=== PATIENT | female | born 1985 | race Caucasian/White ===

== ENCOUNTER 2017-08-24 20:44 | Emergency (ER) | payer MEDICARE, MEDICAID, SELFPAY ==
[2017-08-24 20:52] VITALS: BP 118/65; PULSE 89; RESP 18; TEMP 36.4; O2SAT 95
--- NOTE | 2017-08-24 20:58 | ED.GENADUL ---
Disposition Clinical Impression: Right knee pain, Right leg swelling, History of knee surgery Disposition: HOME Condition: Stable Instructions: Leg Edema (ED), Knee Pain (ED) Additional Instructions: Take the antibiotics until finished. Take Tylenol as needed and directed for pain. Follow-up with orthopedics as recommended for reevaluation. Return immediately to the emergency department any worsening or new concerning symptoms. Prescriptions: Cephalexin [Keflex] 500 mg PO QID 7 Days cap Referrals: Erasmo Joseph MD [ [facility] STAFF PHYSICIAN] - Medical Decision Making - Lab Data Laboratory Tests 08/24/17 08/24/17 08/24/17 21:20 21:30 21:30 WBC 9.43 RBC 3.90 L Hgb 10.9 L Hct 33.3 L MCV 85.4 MCH 27.9 MCHC 32.7 RDW 14.7 H Plt Count 332 MPV 10.5 Immature Gran % 0.1 Neutrophils % 65.6 Lymphocytes % 26.2 Monocytes % 6.9 Eosinophils % 1.0 Basophils % 0.2 Absolute Neutrophils 6.19 Absolute Lymphocytes 2.47 Absolute Monocytes 0.65 Absolute Eosinophils 0.09 Absolute Basophils 0.02 Sodium 140 Potassium 3.9 Chloride 107 Carbon Dioxide 24.5 Anion Gap 8.5 BUN 16 Creatinine 1.07 H Estimated GFR/1.73 m2 58.70 Glucose 92 Calcium 8.1 L C-Reactive Protein 2.40 H Fluid Source Fluid Color Fluid Appearance Fluid WBC Fluid Mononuclear Cell Fl Polymorphonucl Cell Fluid Crystals Fluid Crystal Source 08/24/17 08/24/17 23:15 23:15 WBC RBC Hgb Hct MCV MCH MCHC RDW Plt Count MPV Immature Gran % Neutrophils % Lymphocytes % Monocytes % Eosinophils % Basophils % Absolute Neutrophils Absolute Lymphocytes Absolute Monocytes Absolute Eosinophils Absolute Basophils Sodium Potassium Chloride Carbon Dioxide Anion Gap BUN Creatinine Estimated GFR/1.73 m2 Glucose Calcium C-Reactive Protein Fluid Source R knee Fluid Color Colorless Fluid Appearance Clear Fluid WBC 707 H Fluid Mononuclear Cell 98 H Fl Polymorphonucl Cell 2 H Fluid Crystals See comment Fluid Crystal Source R knee - Radiology Data Radiology results: report reviewed, image reviewed CT Right Lower Extremity without IV contrast: 1. Minimal soft tissue edema in the superficial soft tissues of the anterior leg, otherwise no acute findings. 2. Postsurgical and degenerative changes. 3. Lateral subluxation of the patella - Medical Decision Making 32-year-old female with a history of multiple knee and tibia injuries as a child with a history of right knee and proximal tibia surgery with fixation screws done in November 2016 at [facility] with who presents with right proximal medial tibial tender indurated lump for 6 days and right anterior and posterior knee pain today. Patient was seen here 2 days ago for the same complaint and had a right knee x-ray and right lower externally ultrasound which were negative. Patient was advised to follow-up with orthopedics at that time 2 days ago but has not seen them yet. Patient had labs done at that time which noted an ESR of 71 and a CRP of 3. She is afebrile. No obvious physical exam findings concerning for septic joint. She is neurovascularly intact. The tender induration noted on the proximal medial lower leg appear possibly bony in origin. Will obtain a CT and repeat labs. 2220: CT notes soft tissue edema in the soft tissues and possible lateral subluxation of the patella. Results discussed with Dr. Joseph -notes some loosening around the screws. Main concern would be infection. Recommends to check a CRP to see if it has increased from 2 days ago. Will come down to evaluate patient. 2330: Repeat CRP downtrending but still elevated at 2.4. Discussed with Dr. Joseph and plan will be for outpatient antibiotics and recommends Keflex. Dr. Joseph performed a joint aspiration and sent fluid for analysis. He will call patient to arrange for follow-up for further evaluation and possible bone scan. Patient had requested pain medication stronger than Tylenol. Patient cannot take ibuprofen or aspirin due to anaphylaxis. Will give patient 1 dose of hydrocodone here and 1 tab for home. I discussed with patient that at this point there is no acute indication for narcotics prescription and she can discuss any further need of medication upon follow-up as outpatient. History of Present Illness - General Chief complaint: Orthopedic Stated complaint: CALEX Time Seen by Provider: 08/24/17 20:51 Source: patient Mode of arrival: ambulatory Limitations: no limitations - History of Present Illness Initial comments: Patient is a 32-year-old female with history of multiple injuries to her right knee as a child, with right knee and proximal tibia surgery with fixation screws in November 2016 at [facility] who presents for a tender lump in her right proximal medial tibia for the past 6 days and right knee pain today. Patient was seen here 2 days ago for the same complaint and had negative ultrasound and x-ray and was told to follow-up with orthopedics. Patient states the lump has gotten progressively bigger and now she has developed anterior and posterior right knee pain. Denies any new injury, fever, numbness, or weakness in leg. Patient has not taken any medication for pain. - Related Data BusPIRone [Buspar] 30 mg PO DAILY 08/22/17 DULoxetine [Cymbalta] 60 mg PO BID 08/22/17 Eszopiclone [Lunesta] 5 mg PO HS 08/22/17 Fluticasone Propionate [Flovent 110MCG] 2 puff .ROUTE PRN PRN 08/22/17 Meclizine HCl 12.5 mg PO PRN PRN 08/22/17 Nortriptyline HCl 75 mg PO HS 08/22/17 Prazosin HCl 3 mg PO HS 08/22/17 TraZODone [Desyrel] 400 mg PO HS 08/22/17 Cephalexin [Keflex] 500 mg PO QID 7 Days cap 08/25/17 Allergies Allergy/AdvReac Type Severity Reaction Status Date / Time ibuprofen Allergy Severe Anaphylaxsi Unverified 08/24/17 21:46 s salicylates Allergy Severe Anaphylaxsi Unverified 08/24/17 21:46 s Review of Systems Constitutional: denies: chills, fever Eyes: denies: eye pain ENT: denies: ear pain, dental pain Respiratory: denies: cough, shortness of breath Cardiovascular: denies: chest pain, dyspnea on exertion Gastrointestinal: denies: abdominal pain, nausea, vomiting Genitourinary: denies: urgency, dysuria, frequency Musculoskeletal: other (R leg pain). denies: back pain Skin: denies: rash, lesions Neurological: denies: headache, weakness, numbness Past Medical History - Past Medical History Medical history: arthritis Fibromyalgia Surgical history: cholecystectomy, bilateral tubal ligation, other (Knee and tibial surgery, gastric bypass) Psychiatric history: post traumatic stress - Social History Smoking status: never smoker Alcohol use: none Drug use: none General Exam - General Limitations: no limitations General appearance: alert, in no apparent distress - Eye Eye exam: Present: EOMI - Respiratory Respiratory exam: Present: normal lung sounds bilaterally. Absent: respiratory distress, wheezes, rales, rhonchi, stridor - Cardiovascular Cardiovascular Exam: Present: regular rate, normal rhythm. Absent: bradycardia, tachycardia - GI/Abdominal GI/Abdominal exam: Present: soft, normal bowel sounds. Absent: distended, tenderness, guarding, rebound, rigid - Extremities Exam Extremities exam: Present: other (An approximately 4 x 4 centimeter tender indurated lump noted in right medial proximal leg. There is no surrounding erythema, edema, fluctuance or open wound. Patient has multiple circular erythematous scars that are nonhealing throughout leg which were at sites of previous fixators status post right leg surgery in November 2016 that appears to be healing well and do not appear acutely infectious. There is a well-healed long incision scar on the right lateral anterior knee. Right popliteal pulse intact. Right DP/PT pulse intact. No erythema, edema, ecchymosis to right anterior posterior knee. No pain with valgus or varus stress. Negative anterior and posterior drawer right knee.) - Neurological Exam Neurological exam: Present: alert, oriented X3 - Psychiatric Psychiatric exam: Present: normal affect - Skin Skin exam: Present: warm, dry, intact Course Vital Signs - 24 hr 08/24/17 20:52 Temperature 97.5 F L Pulse 89 Respiratory 18 Rate Blood Pressure 118/65 Pulse Oximetry 95
--- NOTE | 2017-08-24 21:30 | DI.RPTCT_ITS ---
SYMPTOM/DIAGNOSIS: RT KNEE AND RT PROXIMAL TIBIA SWELLING AND PAIN, R/O ACUTE PROCESS CT SCAN RIGHT LOWER EXTREMITY: CT scan of the right lower extremity was performed from the distal metaphysis of the femur to the distal metaphyseal region of the tibia and fibula. Comparison with x-rays from 08/22/2017. There are 3 screws seen in the proximal tibia transfixing a healed proximal tibial fracture. Alignment of the fractures are near anatomic in alignment. Note is made of a healed distal right fibular fracture. No acute fracture or dislocation is identified. There is a moderate size knee joint effusion. The patella appears laterally displaced. There is moderately severe narrowing of the patellofemoral joint and periarticular spurring is seen at this joint space. There is malcom- articular spurring, subchondral cysts and mild sclerosis seen in both medial and lateral patella femoral joints. There is mild subcutaneous edema and soft tissue swelling about the lower leg but no focal fluid collection is seen to suggest an abscess. No osseous destructive changes are seen to suggest osteomyelitis. Calcifications in the soft tissues are suggestive of phleboliths. IMPRESSION: Soft tissue edema seen in the lower leg. This may represent cellulitis. No focal fluid collection is seen to suggest abscess. 2. Post surgical changes in the proximal tibia Degenerative changes seen in the knee. 3. Moderately severe degenerative changes of the patellofemoral joint with lateral subluxation of the patella noted.
[2017-08-24 21:53] LABS: Abs Immature Grans 0.01 k/cumm (0.0-0.09); Absolute Basophil Count 0.02 k/cumm (0.0-0.2); Absolute Eosinophil Count 0.09 k/cumm (0.0-0.7); Absolute Lymphocyte Count 2.47 k/cumm (1.2-3.4); Absolute Monocyte Count 0.65 k/cumm (0.11-0.7); Absolute Neutrophil Count 6.19 k/cumm (1.2-6.7); Basophils % 0.2; HCT 33.3 % (36.0-46.0); HGB 10.9 g/dL (12.0-15.5); Immature Grans % 0.1; Lymphocytes % 26.2; Mean Corp. HGB Concentration 32.7 g/dL (32.0-36.0); Mean Corpuscular Hemoglobin 27.9 pg (27.0-33.0); Mean Corpuscular Volume 85.4 fL (80-95); Mean Platelet Volume 10.5 fL (8.0-11.0); Monocytes % 6.9; Neutrophils % 65.6; Platelet Count 332 x1000/uL (130-400); RBC Distribution Width 14.7 % (11.7-14.6); White Blood Cell Count 9.43 k/cumm (4.4-10.8)
[2017-08-24 21:54] LABS: Anion Gap 8.5 mmol/L (3-11); BUN 16 mg/dL (7-18); CO2 24.5 mmol/L (21.0-32.0); CREATININE 1.07 mg/dL (0.55-1.02); Calcium 8.1 mg/dL (8.5-10.1); Chloride 107 mmol/L (98-107); Glucose 92 mg/dL (70-100); Potassium 3.9 mmol/L (3.5-5.1); Sodium 140 mmol/L (136-145)
--- NOTE | 2017-08-24 22:10 | DI.VRAD_ITS ---
EXAM: CT Right Lower Extremity Without Intravenous Contrast, Tibia and Fibula CLINICAL HISTORY: 32 years old, female; Pain; Knee and lower leg; Right; Prior surgery; Surgery date: 6+ months; Surgery type: Knee and tib/fib surgery in nov 2016. ; Patient HX: Right proximal tibia pain and swelling. ; Additional info: Bb maker placed on area of pain and swelling. TECHNIQUE: Axial computed tomography images of the right tibia and fibula without intravenous contrast. All CT scans at this facility use at least one of these dose optimization techniques: automated exposure control; mA and/or kV adjustment per patient size (includes targeted exams where dose is matched to clinical indication); or iterative reconstruction. Coronal and sagittal reformatted images were created and reviewed. COMPARISON: US - RIGHT EXTREMITY ULTRASOUND 2017-08-22 14:12 FINDINGS: Bones/joints: A knee joint effusion is noted. Fixation screws are seen within the proximal tibia with an old well fused tibia fracture that displays near-anatomic alignment. There are moderate degenerative changes in the knee. A healed distal fibula fracture is also noted. There is lateral subluxation of the patella. Soft tissues: Mild superficial soft tissue swelling is seen in the anterior soft tissues of lower leg, but no organized fluid collections are noted. Small soft tissue calcifications in the soft tissues appear to represent phleboliths. IMPRESSION: 1. Minimal soft tissue edema in the superficial soft tissues of the anterior leg, otherwise no acute findings. 2. Postsurgical and degenerative changes. 3. Lateral subluxation of the patella. Dictated and Authenticated by: Carlton Frias MD. Ordering:DEREK ALCARAZ MD
[2017-08-25] MEDS: Cephalexin 500 MG CAP PO (00:07)
[2017-08-25] MEDS: HYDROcodone 5/Acetaminophen 325 TAB PO ×2 (00:27)
[2017-08-25 00:54] LABS: Clarity CLEAR; Source R KNEE
[2017-08-25 00:57] LABS: Nucleated Cells 707 /MM3 (0-0)
[2017-08-25 00:58] LABS: Mononuclear Cells 98 % (0-0); Polynuclear Cells 2 % (0-0)
--- NOTE | 2017-08-25 10:02 | OCONE_ITS ---
DATE OF CONSULTATION: August 24, 2017 CHIEF COMPLAINT: Right knee swelling and pain. ASSESSMENT/PLAN: Alisia is a 32-year-old who has the acute onset of right knee pain and swelling. There are lucencies seen around the screws and she does have an elevated CRP. My concern is that she has an indolent infection of the proximal tibia. Fortunately there are no signs of bony erosions. She is not septic. Her CRP is actually decreasing. The knee is not infected. Therefore, there is n o emergency here. I do think obtaining a bone scan would be helpful to see if there may be some incr eased uptake in this area suggestive of infection. Since we have obtained some fluid from the knee a nd this appears to be benign, I did trial her on a course of antibiotics to see if this is an indolen t, low-grade infection which may respond to a simple oral course of antibiotics. No matter what, she most likely will need surgical removal of the screws with culture of the bone in these areas and colton ridement of the screw tracks. I discussed this with her. She will start taking the Keflex 500 mg q. i.d. I will schedule her for a bone scan. She may take Tylenol and use ice for pain control. I chema l see her back in the outpatient setting. +++++++++++++++++ HISTORY OF PRESENT ILLNESS: Alisia is a 32-year-old who has had multiple traumas to the right knee a nd leg over the years. Most recently, about ten months ago, she suffered a complex proximal tibia fr acture on the right side. This was fixed at [facility] by Dr. Morrison. He utilized a circular frame, tibi al frame type technique. She was in this for four months from December through March. She had is sues with pin site infections, which she said were treated locally without any further major interven tion. Eventually this healed and she was able to ambulate. She has been doing well until one week a go when she started developing some swelling of the proximal, medial tibia. She also noted some pain . The pain was worse with weightbearing. She has been able to move the knee. She denies any fevers or chills. She denies any recent trauma. No other systemic infections recently. She is not immuno compromised. She now lives locally and does not want to follow-up in [place]. PAST MEDICAL HISTORY: 1. Osteoarthritis of the right knee. 2. Fibromyalgia. 3. Bipolar disorder. 4. Depression. 5. Insomnia. PAST SURGICAL HISTORY: 1. Multiple procedures to the right knee. 2. Gastric bypass surgery. 3. Cholecystectomy. 4. Bilateral tubal ligation. ALLERGIES: Ibuprofen and salicylates cause anaphylaxis per patient report. HOME MEDICATIONS: 1. Buspirone. 2. Duloxetine. 3. Lunesta. 4. Fluticasone. 5. Meclizine. 6. Nortriptyline. 7. Prazosin. 8. Trazodone. SOCIAL HISTORY: She doesn't smoke, use alcohol or any other illicit substances. EXAM: No acute distress. Alert and oriented x3. She is resting comfortably on the stretcher when I evalua te her. Evaluation of the RIGHT LOWER EXTREMITY shows multiple incision sites throughout the knee with a larg e lateral-based incision and multiple smaller incisions throughout. The previous pin sites from the external fixator are seen. All of these appear to be well-healed without obvious signs of infection. There is an area of induration over the proximal, medial tibia. This is quite solid and dense and seems to be deep to the subcutaneous layer of the skin. There is some pain to palpation. There is s ome mild warmth and maybe some local swelling around this area. This area of induration measures abo ut 4 to 5 cm in diameter. There is no gross fluctuance with it and in fact there seems to be a loose fluid collection. She globally has discomfort with palpation throughout the knee and the leg. Loaiza debbi, she doesn't have any significant pain to palpation over the medial lateral joint lines. There i s no large effusion palpated, but there may be a mild effusion. There is no ballottement of the redd lla. She tolerates passive range of motion from 5 to 80 degrees without any discomfort. She does ojeda ve some pain posteriorly when she goes into full extension or tries to flex past the 80 degree ange. Around the knee itself there is no erythema, no warmth. Hip range of motion is non-irritable. Sens ation intact to light touch over the deep and superficial peroneal nerve and tibial nerve. There is crepitus with range of motion at the level of the patella and apprehension with patella mobilization. IMAGING: CT scan of the right lower extremity shows three screws transfixed to the proximal tibia. There is d efinitely lucency seen around the screws. However, I do not see any fluid collection. I see no bony erosion. There are arthritic changes of the knee with some focal subchondral bone loss and periarti cular osteophytes. LABORATORY: CRP today is 2.4, which is down from 3.2 two days prior. Her white blood cell count is normal. PROCEDURE: The right knee was identified as the correct site. The superolateral border of the knee was prepped with ChloraPrep. Using a superolateral approach the knee was aspirated of about 15 cc's of clear syn ovial fluid. There was no suspicion at all with this fluid as being infectious. It was sent to the lab for definitive measurements of cell count, crystals, and culture. I also prepped the area of flu ctuance over the anteromedial tibia. I entered this area as well, all the way down to bone and then withdrew the needle while applying some suction and was unable to obtain any fluid at all. This was then aborted quickly and a Band-Aid was placed on both sites. She tolerated the aspirations well. Body fluid laboratory: white blood cell count equals 707, mononuclears 98%, PMSs equal 2%. No cryst als. Few white blood cells and no bacteria on the gram stain.
== END 2017-08-25 00:37 | disposition home or self-care (01) ==
PROVIDERS: Student in an Organized Health Care Education/Training Program; Emergency Provider Physician Assistant; PCP General Practice
DX: M25.561 Pain in right knee (principal); R60.0 Localized edema; Y83.8 Other surgical procedures as the cause of abnormal reaction of the patient, or of later complication, without mention of misadventure at the time of the procedure; M25.461 Effusion, right knee
CPT/HCPCS: 20610; 36415; 80048; 99283; 99284; 73700; 85025; 86140; 87070; 87075; 87205; 89051; 89060

== ENCOUNTER → 2017-09-13 00:18 | Outpatient (CLI) | payer MEDICARE, MEDICAID, SELFPAY ==
[2017-09-13] MEDS: Gadoterate meglumine 20 ML VIAL 19 ML IVP (11:34)
--- NOTE | 2017-09-13 12:00 | DI.REPORT_ITS ---
SYMPTOMS/DIAGNOSIS: SWELLING OF RIGHT PROXIMAL MEDIAL TIBIA, M79.89, WITH PREVIOUS SURGERY INFECTED HARDWARE IN RIGHT LOWER EXTREMITY, T84.7XXA MRI OF THE RIGHT LOWER EXTREMITY: Pre and post contrast MRI of the right lower extremity was performed. Portions of the distal femur and proximal tibia were evaluated on this MRI examination. Comparison CT and nuclear medicine examinations are from 08/24/17 and 08/28/17, respectively. The study is limited due to significant artifact from the patient 's orthopedic hardware. The T2 weighted images do show areas of hyperintensity within the proximal diaphysis and metaphysis of the right tibia. These areas show decreased attenuation on the T1 weighted images. Following contrast administration, no definite enhancement is seen. There is edema seen in the soft tissues. No focal fluid collection is seen to suggest abscess; however, a significant amount of the metaphyseal region is obscured due to metallic artifact. There is some enhancement seen in the soft tissues and cellulitis cannot be excluded. The visualized muscles show normal signal. There is an effusion seen within the knee joint. IMPRESSION: 1. Limited examination due to artifact from the patient's orthopedic hardware. 2. Edema seen in the soft tissues around the proximal tibia. This may represent a cellulitis but no focal fluid collection is seen to suggest abscess. 3. Marrow edema seen in the proximal tibia without findings of significant enhancement. This may be postsurgical in nature. No definite evidence to suggest osteomyelitis is present.
== END ==
PROVIDERS: PCP General Practice; Visit Provider Student in an Organized Health Care Education/Training Program
DX: R22.41 Localized swelling, mass and lump, right lower limb (principal); R60.0 Localized edema; M79.89 Other specified soft tissue disorders; T84.7XXD Infection and inflammatory reaction due to other internal orthopedic prosthetic devices, implants and grafts, subsequent encounter; Z47.89 Encounter for other orthopedic aftercare
CPT/HCPCS: 73720

== ENCOUNTER → 2017-09-21 16:27 | Outpatient (CLI) | payer MEDICARE, MEDICAID, SELFPAY ==
[2017-09-21 19:17] LABS: HCG Quant, Pregnancy 2 mIU/mL (1-3)
== END ==
PROVIDERS: PCP General Practice; Visit Provider General Practice
DX: R11.0 Nausea (principal)
CPT/HCPCS: 36415; 84702

== ENCOUNTER 2017-09-23 19:35 | Emergency (ER) | payer MEDICARE, MEDICAID, SELFPAY ==
[2017-09-23 20:16] VITALS: BP 94/61; PULSE 76; RESP 16; TEMP 36.8; O2SAT 99
--- NOTE | 2017-09-23 21:35 | ED.GENADUL_ITS ---
Disposition Clinical Impression: Abdominal pain, Nausea Disposition: HOME Condition: Good Instructions: Abdominal Pain (ED) Additional Instructions: Laboratory studies and urinalysis are unremarkable tonight. You should follow- up with primary care next week. You should also consider contacting your bariatric surgical team in [place]. Return to the emergency department for worsening/persistent pain, vomiting, fever. Referrals: Madhu Lyle MD [Primary Care Provider] - Medical Decision Making - Medical Decision Making Patient is a 32-year-old female presents today with chief complaint of abdominal pain. Reports the pain has been present for the past 2 weeks. Primarily postprandially. She is endorsing nausea. No vomiting. No change in bowel habits. On exam, no peritoneal findings. Patient is status post cholecystectomy. Pain is in the right mid and upper abdomen. Reports that she has had diminished p.o. intake. Reports that she has lost approximately 6 pounds over the past 2 weeks. She reports that she has irregular bowel habits and this is unchanged since the onset of symptoms. Patient was seen by her primary care for this earlier this week. No definitive diagnosis made. Patient was concerned for appendicitis. However, she is not having pain over McBurney's point. Postprandial pain is also inconsistent with appendicitis. Patient appears calm. She is interacting with her significant other. They are listening to music. We will obtain laboratory evaluation. At this point, I do not believe imaging is warranted. Patient has had multiple CT scans historically. Discussed this with the patient who is in agreement. When nursing staff went to reevaluate the patient, after blood being drawn, began endorsing nausea and requesting pain medication. Patient was given oral Tylenol and ODT Zofran. Patient reports that this is symptomatic management. Laboratory evaluation without significant abnormality. No leukocytosis. Patient is noted to be slightly anemic but this is typical. Creatinine is 1.05 which is also typical for the patient. Lipase is normal at 181. At the end of my shift, urinalysis is still pending. Care was transitioned to Dr. Brito. History of Present Illness - General Chief complaint: Abd Prob Stated complaint: NAUSEA, ABD PAIN, FEVER Time Seen by Provider: 09/23/17 21:32 Source: patient, family, RN notes reviewed Mode of arrival: ambulatory Limitations: no limitations - History of Present Illness Initial comments: Patient is a 32-year-old female presenting today with chief complaint of right- sided belly pain. She is coming by significant other. Patient is a status post gastric sleeve, cholecystectomy. Patient reports that the pain has been waxing and waning for the past 2 weeks. Reports that it is worse postprandial. What the patient has to eat does not change the severity of discomfort. She states that she has been nauseated after eating. No vomiting. States that she has irregular bowel habits at baseline and that this remains unchanged. Last bowel movement was yesterday. LMP 1 month ago. Denies any vaginal discharge. Reports that she has increased urinary frequency. Denies any dysuria, hematuria. No shortness of breath. Patient has history of polycystic ovarian syndrome, fibromyalgia, asthma, seizure disorder, GERD. - Related Data BusPIRone [Buspar] 30 mg PO DAILY 08/22/17 DULoxetine [Cymbalta] 60 mg PO BID 08/22/17 Eszopiclone [Lunesta] 5 mg PO HS 08/22/17 Prazosin HCl 4 mg PO HS 08/22/17 TraZODone [Desyrel] 400 mg PO HS 08/22/17 Albuterol Sulfate [Proair Hfa] 2 puff IH Q4H PRN inhaler 09/25/17 Ferrous Sulfate 324 mg PO DAILY #30 tab 09/25/17 Folic Acid 4 mg PO DAILY #30 tab 09/25/17 Omeprazole 20 mg PO DAILY tab-cap 09/25/17 Topiramate [Topamax] 50 mg PO BID tab-cap 09/25/17 Allergies Allergy/AdvReac Type Severity Reaction Status Date / Time ibuprofen Allergy Severe Anaphylaxsi Unverified 09/23/17 20:32 s salicylates Allergy Severe Anaphylaxsi Unverified 09/23/17 20:32 s Review of Systems Constitutional: no symptoms reported Respiratory: no symptoms reported Cardiovascular: as per HPI. denies: palpitations, dyspnea on exertion Gastrointestinal: as per HPI, abdominal pain, nausea. denies: vomiting, melena Genitourinary: as per HPI, frequency. denies: urgency, dysuria, hematuria, discharge, abnormal menses Musculoskeletal: back pain (endorses bilateral flank pain) Skin: denies: rash, lesions Neurological: denies: headache Past Medical History - Past Medical History Medical history: asthma, fibromyalgia, GERD, seizures Fibromyalgia, polycystic ovarian syndrome Surgical history: cholecystectomy, bilateral tubal ligation, other (Knee and tibial surgery, gastric bypass) Psychiatric history: depression, post traumatic stress - Social History Alcohol use: none Drug use: none General Exam - General Limitations: no limitations General appearance: alert, in no apparent distress - Eye Eye exam: Present: normal apperance - ENT ENT exam: Present: mucous membranes dry - Respiratory Respiratory exam: Present: normal lung sounds bilaterally. Absent: respiratory distress - Cardiovascular Cardiovascular Exam: Present: regular rate, normal rhythm, normal heart sounds - GI/Abdominal GI/Abdominal exam: Present: soft, tenderness (Patient reports that she is having some discomfort with palpation in the right mid and upper quadrants. However, she does not appear uncomfortable. No guarding. No peritoneal findings.), normal bowel sounds. Absent: distended, guarding, rebound, rigid, organomegaly, mass, pulsatile mass, hernia - Rectal Rectal exam: Present: deferred - Back Exam Back exam: Present: CVA tenderness (R), CVA tenderness (L) - Neurological Exam Neurological exam: Present: alert, normal gait - Psychiatric Psychiatric exam: Present: normal affect, normal mood - Skin Skin exam: Present: warm, dry, intact, normal color Course Vital Signs - 24 hr 09/23/17 20:16 Temperature 36.8 C Pulse 76 Respiratory 16 Rate Blood Pressure 94/61 Pulse Oximetry 99
[2017-09-23 22:04] LABS: Abs Immature Grans 0.02 k/cumm (0.0-0.09); Absolute Basophil Count 0.03 k/cumm (0.0-0.2); Absolute Eosinophil Count 0.09 k/cumm (0.0-0.7); Absolute Lymphocyte Count 2.98 k/cumm (1.2-3.4); Absolute Monocyte Count 0.93 k/cumm (0.11-0.7); Absolute Neutrophil Count 6.25 k/cumm (1.2-6.7); Basophils % 0.3; Eosinophils % 0.9; HCT 32.4 % (36.0-46.0); HGB 10.6 g/dL (12.0-15.5); Immature Grans % 0.2; Lymphocytes % 28.9; Mean Corp. HGB Concentration 32.7 g/dL (32.0-36.0); Mean Corpuscular Hemoglobin 27.9 pg (27.0-33.0); Mean Corpuscular Volume 85.3 fL (80-95); Mean Platelet Volume 10.6 fL (8.0-11.0); Neutrophils % 60.7; Platelet Count 280 x1000/uL (130-400); RBC Distribution Width 14.6 % (11.7-14.6)
[2017-09-23] MEDS: Ondansetron O.D.T. 4 MG TABEF PO (22:16)
[2017-09-23] MEDS: Acetaminophen 500 MG TAB 1000 MG PO (22:18)
[2017-09-23 22:26] LABS: ALT 14 U/L (12-78); AST 8 U/L (15-37); Albumin 2.9 g/dL (3.4-5.0); Alkaline Phosphatase 107 U/L (46-116); Anion Gap 6.9 mmol/L (3-11); BUN 15 mg/dL (7-18); Bilirubin, Total 0.2 mg/dL (0.2-1.0); CO2 27.1 mmol/L (21.0-32.0); CREATININE 1.05 mg/dL (0.55-1.02); Chloride 107 mmol/L (98-107); Estimated GFR 59.99 (mL/min/1.73m2); Glucose 73 mg/dL (70-100); Lipase 181 U/L (73-393); Magnesium 2.1 mg/dL (1.8-2.4); Potassium 3.7 mmol/L (3.5-5.1); Sodium 141 mmol/L (136-145)
[2017-09-23 22:38] LABS: Troponin I < 0.02 ng/mL (0.00-0.06)
[2017-09-23 22:40] LABS: Bilirubin Negative (Negative); Blood Negative (Negative); Clarity Clear; Glucose Negative (Negative); Ketones Trace mg/dL (Negative); Leukocyte Esterase Negative (Negative); Nitrite Negative (Negative)
--- NOTE | 2017-09-23 23:23 | ED.FU ---
Disposition Clinical Impression: Abdominal pain, Nausea Disposition: HOME Condition: Good Instructions: Abdominal Pain (ED) Additional Instructions: Laboratory studies and urinalysis are unremarkable tonight. You should follow-up with primary care next week. You should also consider contacting your bariatric surgical team in [place]. Return to the emergency department for worsening/persistent pain, vomiting, fever. Referrals: Madhu Lyle MD [Primary Care Provider] - Medical Decision Making - Lab Data Laboratory Tests 09/23/17 09/23/17 09/23/17 22:00 22:02 22:02 WBC 10.30 RBC 3.80 L Hgb 10.6 L Hct 32.4 L MCV 85.3 MCH 27.9 MCHC 32.7 RDW 14.6 Plt Count 280 MPV 10.6 Immature Gran % 0.2 Neutrophils % 60.7 Lymphocytes % 28.9 Monocytes % 9.0 Eosinophils % 0.9 Basophils % 0.3 Absolute Neutrophils 6.25 Absolute Lymphocytes 2.98 Absolute Monocytes 0.93 H Absolute Eosinophils 0.09 Absolute Basophils 0.03 Sodium 141 Potassium 3.7 Chloride 107 Carbon Dioxide 27.1 Anion Gap 6.9 BUN 15 Creatinine 1.05 H Estimated GFR/1.73 m2 59.99 Glucose 73 Calcium 8.0 L Magnesium 2.1 Total Bilirubin 0.2 AST 8 L ALT 14 Alkaline Phosphatase 107 Troponin I < 0.02 Total Protein 7.0 Albumin 2.9 L Lipase 181 Urine Color Yellow Urine Clarity Clear Urine pH 6.0 Ur Specific [place] 1.020 Urine Protein Negative Urine Ketones Trace H Urine Blood Negative Urine Nitrite Negative Urine Bilirubin Negative Urine Urobilinogen 1.0 H Ur Leukocyte Esterase Negative Urine Glucose Negative Results reviewed for labs ordered during visit: Yes - Medical Decision Making Patient urinalysis negative for infection. Labs unremarkable. She had received Tylenol and Zofran here as well as fluids pending return of laboratory studies. Patient will be referred back to primary care for follow-up. Also suggested she contact her bariatric surgeons in [place] in case this is possibly related to her previous gastric sleeve. Return to ED for worsening/persistent abdominal pain, vomiting, fever. Care Signed Out By:: DEBBIE Rushing - Vital Signs Recent Vitals - 8H: Vital Signs - 8 hr 09/23/17 20:16 Temperature 98.2 F Pulse 76 Respiratory 16 Rate Blood Pressure 94/61 Pulse Oximetry 99 - Continuation of Care Continuation of Care Plan: Patient signed over to me pending results of urinalysis. Patient originally seen by physician commercial loan assistant Shanthi for intermittent right-sided abdominal pain for the last few weeks. This is associated with nausea. Symptoms worse after eating. She is already status post cholecystectomy. She also has history of gastric sleeve. She had seen primary care previously for same.
[2017-09-23 23:52] VITALS: BP 110/70; PULSE 75; RESP 16; O2SAT 96
== END 2017-09-23 23:52 | disposition home or self-care (01) ==
PROVIDERS: Physician Assistant; Emergency Provider Emergency Medicine; PCP General Practice
DX: R10.11 Right upper quadrant pain (principal); R11.0 Nausea; Z98.84 Bariatric surgery status; Z90.49 Acquired absence of other specified parts of digestive tract
CPT/HCPCS: 99283 ×2; 80053; 83690; 81003; 83735; 84484; 85025

== ENCOUNTER → 2017-09-25 09:10 | Outpatient (CLI) | payer MEDICARE, MEDICAID, SELFPAY ==
[2017-09-25 10:04] LABS: Hemoglobin A1C 5.3 % (4.5-6.2)
[2017-09-25 10:39] LABS: Iron 53 ug/dL (50-175); Total Iron Binding Capacity 354 ug/dL (250-450); Transferrin Sat 15 % (15-50)
[2017-09-27 09:41] LABS: DHEA Sulfate 98 ug/dl (96-512)
[2017-09-27 16:39] LABS: Testosterone, Free 0.42 ng/dL (0.06-1.03); Testosterone, Total 30 ng/dL (8-60)
[2017-09-27 18:11] LABS: 17-Hydroxyprogesterone 253 ng/dL
[2017-09-28 09:20] LABS: Hemoglobinopathy Interpretat Interpretation:
== END ==
PROVIDERS: PCP General Practice; Visit Provider Obstetrics & Gynecology
DX: E34.9 Endocrine disorder, unspecified (principal); E28.2 Polycystic ovarian syndrome; D50.8 Other iron deficiency anemias
CPT/HCPCS: 36415; 82627; 84402; 84403; 83020; 83036; 83498; 83540; 83550

== ENCOUNTER → 2017-09-25 10:23 | Outpatient (REF) | payer MEDICARE, MEDICAID, SELFPAY ==
--- NOTE | 2017-09-25 09:00 | PAPFT_PTH ---
PATIENT: Alisia Hein LOC: [facility] U#:[id number] AGE/SX: 39/F ROOM: RE09/25/[address]: Tracy Pena MD : 1985 BED: DIS: SPEC #: [id number] RECD: 09/25/17 13:04 STATUS: LEIA CORTEZ #: [id number] JOSE: 09/25/17 09:[address]: Tracy Pena DEPT: [facility] Cytology RECD BY: Shanel Rodriguez ENTERED: 09/25/17 13:04 SP TYPE: PAPFT OTHR DR: Madhu Lyle Tissues: 1 - CX/ENDOCX FOR PAP SMEARS Procedures: PAP THIN PREP/UVM Screening HPV DNA PROBE Comments: [id number]
== END ==
LOC: LBN 10:23
PROVIDERS: PCP General Practice; Visit Provider Obstetrics & Gynecology
DX: Z12.4 Encounter for screening for malignant neoplasm of cervix (principal); Z11.51 Encounter for screening for human papillomavirus (HPV)
CPT/HCPCS: 88142; 87624

== ENCOUNTER 2017-09-27 02:03 | Emergency (ER) | payer MEDICARE, MEDICAID, SELFPAY ==
[2017-09-27 02:09] VITALS: BP 113/67; PULSE 76; RESP 18; TEMP 36.7; O2SAT 98
[2017-09-27] MEDS: Omnipaque 350 MG/ML 50 ML BTL PO (02:46)
[2017-09-27] MEDS: Breeza Beverage 473 ML BTL PO (02:47)
--- NOTE | 2017-09-27 02:51 | ED.GENADUL ---
Disposition Clinical Impression: Vomiting, Abdominal pain Disposition: HOME Condition: Good Instructions: Abdominal Pain (ED), Acute Nausea and Vomiting (ED) Additional Instructions: We will set up an appointment with a surgeon for colonoscopy. Please drink 8-10 cups of water per day. If you notice any worsening of your symptoms, or any new symptoms such as vomiting, diarrhea, fever, chills, shortness of breath, chest pain, numbness, weakness, or fainting , please return immediately to the emergency department for reevaluation. Please follow up with your primary care provider as soon as possible for reassessment and reevaluation. As always, it was a pleasure participating in your medical care today. Prescriptions: Ondansetron [Zofran Odt] 4 mg PO Q8H #12 tab.rapdis Referrals: Madhu Lyle MD [Primary Care Provider] - Medical Decision Making - Medical Decision Making This is a 32-year-old female with a history of a gastric sleeve, and cholecystectomy who presents for nausea, abdominal pain, occasional vomiting, and some loose stool over the last 3 weeks. Physical exam demonstrates mildly tender but otherwise relatively benign abdomen on exam. She has been able to tolerate liquids, but no significant solids recently. Her symptoms have been present for the last 3 weeks however she has been unable to follow-up with her PCP or gastric bypass surgeon. We will get a CT scan to evaluate for any acute process, ileus, fistula. 5 AM Patient's laboratory workup has returned relatively benign. No significant leukocytosis. No severe electrolyte abnormality. Creatinine is slightly elevated however compared to her normal baseline this appears to be within normal limits on review of prior labs. We are pending CT images results at this time. Patient has had no additional episodes of diarrhea, or vomiting. She has been rehydrated. Feels a CT imaging is negative she can be discharged home with close follow-up. 5: [address] scan of the abdomen and pelvis shows no acute findings that are detected. However there is an intraluminal filling defect noted in the inferior cecum which may be secondary to fecal material, polyp or neoplasm per virtual radiology. Recommended endoscopic evaluation. We will set the patient up with surgical follow-up for colonoscopy. The patient has been able to tolerate p.o. here, and has had no vomiting. After being rehydrated I feel she can be safely discharged home with close follow-up. We will give Zofran for home use. Discussed the importance of close follow-up, and we also discussed red flags which returned the patient understands. I have extensively reviewed the treatment plan and discharge instructions with the patient. I have addressed all patient concerns at this time. The patient was made aware of what symptoms to monitor for that would warrant a return to the emergency department. Discussed the plan with the patient, they demonstrate verbal understanding and agreement with our assessment and plan at this time. History of Present Illness - General Chief complaint: Nausea/Vomit/Diar Stated complaint: UNKNOWN Time Seen by Provider: 09/27/17 02:28 - History of Present Illness Initial comments: This is a 32-year-old female with a past medical history of fibromyalgia, PTSD, cholecystectomy and gastric sleeve in 2013. She presents today with 3 weeks of nausea, generalized abdominal pain, occasional loose stool, and some mild urinary discomfort. Patient was here within the past 2 weeks, she had a benign laboratory workup, and was encouraged to follow-up with her PCP and gastric surgeon who performed a gastric sleeve procedure. Unfortunately she was unable to follow-up with these physician groups. Since then the patient has had continued symptoms, with no significant improvement. She had one episode of vomiting today. It was nonbilious and nonbloody. She has had occasional episodes of loose stool, which are also nonbloody and brown in color. She denies any recent antibiotics, foreign travel, or other sick contacts. She has had no recent camping episodes. In regards to her urinary pain she notes mild urinary pain with urination, but denies any significant vaginal discharge. She denies any fevers or chills. She has had a decreased oral intake over the last few days, but is still been able to drink regularly throughout the day, and is tolerated this well. Patient denies any IV or illicit drug use. She denies any other recent surgeries. She denies any pertinent family history. She has no other complaints at this time. - Related Data BusPIRone [Buspar] 30 mg PO DAILY 08/22/17 DULoxetine [Cymbalta] 60 mg PO BID 08/22/17 Eszopiclone [Lunesta] 5 mg PO HS 08/22/17 Prazosin HCl 4 mg PO HS 08/22/17 Albuterol Sulfate [Proair Hfa] 2 puff IH Q4H PRN inhaler 09/25/17 Ferrous Sulfate 324 mg PO DAILY #30 tab 09/25/17 Folic Acid 4 mg PO DAILY #30 tab 09/25/17 Omeprazole 20 mg PO DAILY tab-cap 09/25/17 Topiramate [Topamax] 50 mg PO BID tab-cap 09/25/17 Aripiprazole [Abilify] 10 mg PO DAILY tab-cap 09/26/17 Flovent IH DIRECTED 09/26/17 Nortriptyline HCl [Pamelor] 75 mg PO DAILY tab-cap 09/26/17 Trazodone HCl 400 mg PO HS tab-cap 09/26/17 Ondansetron [Zofran Odt] 4 mg PO Q8H #12 tab.rapdis 09/27/17 Allergies Allergy/AdvReac Type Severity Reaction Status Date / Time ibuprofen Allergy Severe Anaphylaxsi Unverified 09/23/17 20:32 s salicylates Allergy Severe Anaphylaxsi Unverified 09/23/17 20:32 s Review of Systems Other: 10 point review of systems was performed, pertinent positives and negatives are noted in the history of present illness. Past Medical History - Past Medical History Medical history: asthma, fibromyalgia, GERD, seizures Fibromyalgia, polycystic ovarian syndrome Surgical history: cholecystectomy, bilateral tubal ligation, other (Knee and tibial surgery, gastric bypass) - Social History Alcohol use: none Drug use: none General Exam - Other Other exam information: 1.Const: Well-nourished, Well-developed, appearing stated age 2.Eyes: PERRL, no conjunctival injection, and symmetrical lids. 3.ENT: Atraumatic external nose and ears. Moist MM. Neck: Symmetric, trachea midline, No thyromegaly. 4.CVS: +S1/S2, No murmurs or gallops. Peripheral pulses 2+ and equal in all extremities. Brisk capillary refill in all extremities. 5.RESP: Unlabored respiratory effort. Clear to auscultation bilaterally. No wheezes rales or rhonchi 6.GI: Soft, generalized abdominal tenderness, no significant guarding or rebound. Mild right lower quadrant tenderness on palpation. Negative Curran sign. Negative obturator and psoas sign. No significant CVA tenderness. 7.MSK: Normocephalic/Atraumatic, Extremities w/o deformity or ttp No cyanosis or clubbing, Normal movement of all extremities 8.Skin: Warm, Dry. No rashes or lesions. 9.Neuro: general repairer II-XII grossly intact. Sensation grossly intact, no focal neurologic deficits. 10.Psych: (AAO) x3. Appropriate mood and affect Course Vital Signs - 24 hr 09/27/17 02:09 Temperature 36.7 C Pulse 76 Respiratory 18 Rate Blood Pressure 113/67 Pulse Oximetry 98
[2017-09-27 03:08] LABS: Abs Immature Grans 0.02 k/cumm (0.0-0.09); Absolute Basophil Count 0.02 k/cumm (0.0-0.2); Absolute Eosinophil Count 0.09 k/cumm (0.0-0.7); Absolute Lymphocyte Count 3.01 k/cumm (1.2-3.4); Absolute Monocyte Count 0.56 k/cumm (0.11-0.7); Absolute Neutrophil Count 4.48 k/cumm (1.2-6.7); Basophils % 0.2; Eosinophils % 1.1; HCT 33.1 % (36.0-46.0); HGB 10.9 g/dL (12.0-15.5); Immature Grans % 0.2; Lymphocytes % 36.8; Mean Corp. HGB Concentration 32.9 g/dL (32.0-36.0); Mean Corpuscular Hemoglobin 28.2 pg (27.0-33.0); Mean Corpuscular Volume 85.8 fL (80-95); Monocytes % 6.8; Neutrophils % 54.9; Platelet Count 276 x1000/uL (130-400); RBC 3.86 m/cumm (4.00-5.20); RBC Distribution Width 14.6 % (11.7-14.6); White Blood Cell Count 8.18 k/cumm (4.4-10.8)
[2017-09-27] MEDS: Dicyclomine 20 MG TAB PO (03:16)
[2017-09-27] MEDS: Ondansetron 4 MG/2 ML VIAL IVP (03:16)
[2017-09-27] MEDS: Normal Saline 1,000 ML 1000 ML IV (03:17)
[2017-09-27 03:18] LABS: Bilirubin Negative (Negative); Blood Negative (Negative); Clarity Sl Cloudy; Glucose Negative (Negative); Ketones Negative (Negative); Leukocyte Esterase Trace (Negative); Nitrite Negative (Negative); pH 5.5 (5-8)
[2017-09-27 03:36] LABS: RBC 0-2 (0-2)
[2017-09-27 03:37] LABS: Bacteria Many HPF (Negative); C & S Indicated? C&S Done As Ordered; Casts Negative LPF (Negative); Crystals Negative HPF (Negative); Epithelial Cells Moderate HPF (Negative); Mucus Negative (Negative)
[2017-09-27 03:48] LABS: ALT 20 U/L (12-78); AST 45 U/L (15-37); Albumin 2.9 g/dL (3.4-5.0); Alkaline Phosphatase 113 U/L (46-116); Anion Gap 10.8 mmol/L (3-11); BUN 12 mg/dL (7-18); Bilirubin, Total 0.5 mg/dL (0.2-1.0); CO2 22.2 mmol/L (21.0-32.0); CREATININE 1.13 mg/dL (0.55-1.02); Calcium 8.2 mg/dL (8.5-10.1); Chloride 107 mmol/L (98-107); Estimated GFR 55.12 (mL/min/1.73m2); Glucose 85 mg/dL (70-100); Potassium 4.7 mmol/L (3.5-5.1); Sodium 140 mmol/L (136-145); Total Protein 7.4 g/dL (6.4-8.2)
[2017-09-27 04:02] LABS: Lipase 131 U/L (73-393)
--- NOTE | 2017-09-27 04:20 | DI.RPTCT_ITS ---
SYMPTOM/DIAGNOSIS: GENERALIZED ABD PAIN, RLQ PAIN, H/O GASTRIC BYPASS [address] 09/27 CT examination of the abdomen and pelvis was performed with a bolus infusion of 100 cc Omnipaque 350 and ingestion of dilute barium. Images obtained through the lung bases are unremarkable. Liver, spleen and pancreas appear normal. Gallbladder has been surgically removed. No biliary dilatation seen. Previous gastric stapling procedure noted. No significant abdominal wall hernia seen. No significant abdominal or pelvic adenopathy seen. Small left ovarian cyst may be present. Correlation with ultrasound could be obtained if clinically indicated. Small quantity of free pelvic fluid noted,. Appendix appears normal. There is question of an intraluminal filling defect and/or narrowing of the lumen of the ascending colon, colonoscopy recommended to exclude colonic mass. No other focal bowel pathology identified. Adrenals and kidneys appear normal except for a tiny nonobstructing left renal mid pole calculus. Abdominal aorta is of normal diameter and no major vascular abnormality is seen. CONCLUSION: 1. Tiny left renal calculus 2. Possible intraluminal filling defect or mucosal abnormality of the cecum/ ascending colon, correlation with colonoscopy recommended to exclude colonic lesions.
--- NOTE | 2017-09-27 05:15 | DI.VRAD_ITS ---
EXAM: CT Abdomen and Pelvis With Intravenous Contrast EXAM DATE/TIME: 09/27/2017 2:32 AM CLINICAL HISTORY: 32 years old, female; Pain and signs and symptoms; Fever and nausea and other: Diarrhea; Abdominal pain; Generalized; Prior surgery; Surgery date: 6+ months; Surgery type: Gastric sleeve 2013 and gallbladder 2002; Patient HX: Fever, nausea loss of appetite, lightheaded, pelvic pain, TECHNIQUE: Axial computed tomography images of the abdomen and pelvis with intravenous contrast. All CT scans at this facility use at least one of these dose optimization techniques: automated exposure control; mA and/or kV adjustment per patient size (includes targeted exams where dose is matched to clinical indication); or iterative reconstruction. Coronal and sagittal reformatted images were created and reviewed. CONTRAST: 100 ml of Omnipaque 350 administered intravenously. COMPARISON: No relevant prior studies available. FINDINGS: Lower thorax: No acute findings. ABDOMEN: Liver: Normal. No mass. Gallbladder and bile ducts: There has been prior cholecystectomy. Pancreas: Normal. No ductal dilation. Spleen: Normal. No splenomegaly. Adrenals: Normal. No mass. Kidneys and ureters: Normal. No hydronephrosis. Stomach and bowel: The gastric sleeve is present. There is an intraluminal filling defect noted along the posterior cecum which could represent fecal material; polyp or neoplasm. Consideration could be given to correlation with endoscopic evaluation. This measures an estimated 2.7 x 2.6 cm in AP and transverse dimensions respectively. Appendix: No evidence of appendicitis. PELVIS: Bladder: Unremarkable as visualized. Reproductive: A 2.0 x 1.7 cm left ovarian cyst is identified. Correlation with pelvic ultrasonography could be considered. ABDOMEN and PELVIS: Intraperitoneal space: See Reproductive Finding. Bones/joints: Mild dextroscoliotic curvature of the lumbar spine is noted with the apex at L3. Soft tissues: Unremarkable. Vasculature: Normal. No abdominal aortic aneurysm. Lymph nodes: Normal. No enlarged lymph nodes. IMPRESSION: 1. No acute findings are detected. 2. An apparent intraluminal filling defect is seen in the posterior inferior cecum as described above. Consideration could be given to endoscopic evaluation. Dictated and Authenticated by: Tony Meek MD. Ordering:MILTON CORDON MD
[2017-09-27 05:29] VITALS: BP 109/68; PULSE 66; RESP 18; TEMP 37; O2SAT 99
--- NOTE | 2017-09-27 08:16 | PDOC.ERCMPRO ---
Care Management Progress Note 09/27-Dr. Wallace requested assistance with a surgical f/u in one week for colonoscopy. CT scan showed intramluminal filling defect along the posterior cecum. Referral faxed to [facility] this am.
== END 2017-09-27 05:33 | disposition home or self-care (01) ==
PROVIDERS: Emergency Provider Student in an Organized Health Care Education/Training Program; PCP General Practice
DX: R11.2 Nausea with vomiting, unspecified (principal); R10.84 Generalized abdominal pain; R30.0 Dysuria; Z98.84 Bariatric surgery status
CPT/HCPCS: 74177; 96374; 99284; 99285; J2405; Q9967; 36415; 80053; 81025; 83690; 81003; 81015; 85025; 87086

== ENCOUNTER 2017-09-27 22:28 | Emergency (ER) | payer MEDICARE, MEDICAID, SELFPAY ==
[2017-09-27 22:32] VITALS: BP 115/65; PULSE 78; RESP 20; TEMP 37.2; O2SAT 98
--- NOTE | 2017-09-27 22:43 | ED.GENADUL_ITS ---
Disposition Clinical Impression: Abdominal pain, Nausea and vomiting Disposition: HOME Condition: Good Instructions: Acute Nausea and Vomiting (ED), Abdominal Pain (ED) Additional Instructions: Keep your appointment with primary care today. You must contact her bariatric surgeon for follow-up with him. General surgery from here will contact you in regards to colonoscopy. Your care is been referred to case management to help you coordinate your follow-up. Return to ED for high fever or persistent vomiting or new abdominal pain. Referrals: Madhu Lyle MD [Primary Care Provider] - Darwin Roberts DO [ [facility] STAFF PHYSICIAN] - Medical Decision Making - Lab Data Results reviewed for labs ordered during visit: Yes - Medical Decision Making Patient returns with complaints of worsening abdominal pain and rectal pain. Her abdominal exam is completely benign. Rectal exam is normal. I have reviewed her previous visits, laboratory findings, imaging studies. There has been nothing of significance other than questionable intra-luminal defects in the acsending colon. I did discuss the case with surgeon container washer machine, Dr. Roberts. Patient does not appear to be in significant distress. She is not febrile. Her vital signs are normal. Her abdomen is nonsurgical. Dr. Roberts recommends repeating CBC as well as sed rate and C-reactive protein for inflammatory markers. Try Phenergan rather than Zofran for her nausea and vomiting. He is willing to follow up and do the colonoscopy within the week but felt that referral to primary care and bariatric surgeon as we had discussed with the patient previously is the appropriate workup. Patient had a small IV in her hand and received fluids through this. We did not give the Phenergan IV. She received this IM. She has not vomited here. Eventually labs were obtained. White count remains normal. Sed rate and C- reactive protein somewhat elevated but lower than last month when she had inflammatory reaction with her knee. At this point we are going to discharge her home. We will have case management follow-up with her. She supposedly has an appointment to see her primary care physician today. She still has apparently not called her bariatric surgeon which she has been told to do. Dr. Roberts is supposed to follow-up with her in terms of colonoscopy. At this point there is very little for the ED to do in regards to further evaluation or workup. She should return if she has persistent vomiting or high fever. Continue current medication as she did not feel like the Phenergan made her any better than Zofran. History of Present Illness - General Chief complaint: Nausea/Vomit/Diar Stated complaint: ABD PAIN RECHECK Time Seen by Provider: 09/27/17 22:30 Source: patient, RN notes reviewed, old records reviewed Mode of arrival: EMS Limitations: no limitations - History of Present Illness Initial comments: Patient returns to ED tonight with complaints of increasing abdominal pain and now rectal pain. This is now her third visit in the last week for similar complaints. Initially seen on the by DEBBIE Maki and myself with complaints of intermittent abdominal pain and nausea. Workup negative and discharged home to follow-up with primary care and bariatric surgery. She never did follow through with these referrals. She was seen by TAP DANCER on the . She was subsequently seen again in the ED just about 24 hours ago. Repeat laboratory studies remained unremarkable. CT scan of the abdomen/pelvis essentially unremarkable other than some possible intra-lumen defects in the cecum/ ascending colon region. She returns complaining of continued nausea and dry heaves, diarrhea, increasing abdominal pain, now rectal pain. There has been no bloody stool. No documented fever at home. Has still not followed up with primary care or bariatrics. Was referred to our surgeons for colonoscopy. - Related Data BusPIRone [Buspar] 30 mg PO DAILY 08/22/17 DULoxetine [Cymbalta] 60 mg PO BID 08/22/17 Eszopiclone [Lunesta] 5 mg PO HS 08/22/17 Prazosin HCl 4 mg PO HS 08/22/17 Albuterol Sulfate [Proair Hfa] 2 puff IH Q4H PRN inhaler 09/25/17 Ferrous Sulfate 324 mg PO DAILY #30 tab 09/25/17 Folic Acid 4 mg PO DAILY #30 tab 09/25/17 Omeprazole 20 mg PO DAILY tab-cap 09/25/17 Topiramate [Topamax] 50 mg PO BID tab-cap 09/25/17 Aripiprazole [Abilify] 10 mg PO DAILY tab-cap 09/26/17 Flovent IH DIRECTED 09/26/17 Nortriptyline HCl [Pamelor] 75 mg PO DAILY tab-cap 09/26/17 Trazodone HCl 400 mg PO HS tab-cap 09/26/17 Ondansetron [Zofran Odt] 4 mg PO Q8H #12 tab.rapdis 09/27/17 Allergies Allergy/AdvReac Type Severity Reaction Status Date / Time ibuprofen Allergy Severe Anaphylaxsi Unverified 09/27/17 22:34 s salicylates Allergy Severe Anaphylaxsi Unverified 09/27/17 22:34 s Review of Systems Constitutional: malaise. denies: fever Eyes: denies: vision change ENT: denies: ear pain Respiratory: denies: cough, shortness of breath Cardiovascular: denies: chest pain, syncope Gastrointestinal: abdominal pain, nausea, vomiting, diarrhea Genitourinary: denies: urgency, dysuria, frequency, hematuria Musculoskeletal: denies: back pain, arthralgia Skin: denies: rash Neurological: denies: headache, weakness Past Medical History - Past Medical History Medical history: asthma, fibromyalgia, GERD, seizures Fibromyalgia, polycystic ovarian syndrome Surgical history: cholecystectomy, bilateral tubal ligation, other (Knee and tibial surgery, gastric bypass) - Social History Alcohol use: none Drug use: none General Exam - General Limitations: no limitations General appearance: alert, in no apparent distress - Head Head exam: Present: atraumatic, normocephalic - Eye Eye exam: Present: normal apperance - ENT ENT exam: Present: mucous membranes moist - Respiratory Respiratory exam: Present: normal lung sounds bilaterally - Cardiovascular Cardiovascular Exam: Present: regular rate, normal rhythm, normal heart sounds - GI/Abdominal GI/Abdominal exam: Present: soft, normal bowel sounds. Absent: distended, tenderness, guarding, rebound, rigid - Rectal Rectal exam: Present: normal inspection, normal rectal tone, other (Exam done with female nurse present). Absent: fecal impaction, hemorrhoids, mass, tenderness - Extremities Exam Extremities exam: Present: normal inspection - Neurological Exam Neurological exam: Present: alert, oriented X3, CN II-XII intact. Absent: motor sensory deficit - Psychiatric Psychiatric exam: Present: flat affect - Skin Skin exam: Present: warm, dry, intact Course Vital Signs - 24 hr 09/27/17 22:32 Temperature 99.0 F Pulse 78 Respiratory 20 Rate Blood Pressure 115/65 Pulse Oximetry 98
[2017-09-27] MEDS: Lactated Ringers 1,000 ML 1000 ML IV (23:46)
[2017-09-28 01:52] LABS: Abs Immature Grans 0.04 k/cumm (0.0-0.09); Absolute Basophil Count 0.02 k/cumm (0.0-0.2); Absolute Eosinophil Count 0.09 k/cumm (0.0-0.7); Absolute Lymphocyte Count 3.05 k/cumm (1.2-3.4); Absolute Monocyte Count 0.65 k/cumm (0.11-0.7); Absolute Neutrophil Count 5.37 k/cumm (1.2-6.7); Basophils % 0.2; HCT 32.6 % (36.0-46.0); Immature Grans % 0.4; Lymphocytes % 33.1; Mean Corp. HGB Concentration 33.7 g/dL (32.0-36.0); Mean Corpuscular Hemoglobin 28.3 pg (27.0-33.0); Mean Corpuscular Volume 83.8 fL (80-95); Neutrophils % 58.3; Platelet Count 184 x1000/uL (130-400); RBC 3.89 m/cumm (4.00-5.20); RBC Distribution Width 14.5 % (11.7-14.6); White Blood Cell Count 9.22 k/cumm (4.4-10.8)
[2017-09-28 01:57] VITALS: BP 112/53; PULSE 74; RESP 18; TEMP 36.6; O2SAT 97
[2017-09-28 02:09] LABS: C-Reactive Protein 1.47 mg/dL (0.0-0.3)
[2017-09-28 02:38] LABS: ESR 40 MM/HR (0-20)
[2017-09-28 02:51] VITALS: BP 98/54; PULSE 74; RESP 16; TEMP 37; O2SAT 98
--- NOTE | 2017-09-28 11:37 | PDOC.ERCMPRO ---
Care Management Progress Note 09/28-Dr. Brito requested assistance with a PCP, surgical, and bariatric appt f/u. Abdominal pain, multiple ED visits. Referral for [facility] was done on 09/27. This CM will refer to PCP, Dr. Lyle for Bariatric and PCP f/u. Referral sent to Dr Lyle's office this am.
--- NOTE | 2017-09-28 11:39 | CMPROGNOTE_ITS ---
Care Management Progress Note 09/28-Dr. Brito requested assistance with a PCP, surgical, and bariatric appt f/ u. Abdominal pain, multiple ED visits. Referral for [facility] was done on 09/27. This CM will refer to PCP, Dr. Lyle for Bariatric and PCP f/u. Referral sent to Dr Lyle's office this am.
== END 2017-09-28 02:51 | disposition home or self-care (01) ==
PROVIDERS: Emergency Provider Emergency Medicine; PCP General Practice
DX: R10.84 Generalized abdominal pain (principal); R11.2 Nausea with vomiting, unspecified; K62.89 Other specified diseases of anus and rectum
CPT/HCPCS: 96360; 96372; 99284 ×2; 36415; 80053; 81025; 83690; 85652; 96374; 99285; 74177; 81003; 81015; 85025; 86140; 87086; J2405; Q9967

== ENCOUNTER → 2017-09-28 14:52 | Outpatient (REF) | payer MEDICARE, MEDICAID, SELFPAY ==
[2017-09-29 18:01] LABS: Campylobacter PCR SEE COMMENTS; Salmonella PCR SEE COMMENTS; Shiga Toxin PCR SEE COMMENTS; Shigella/Enteroinvasive Ecoli SEE COMMENTS
== END ==
LOC: LBN 14:52
PROVIDERS: PCP General Practice; Visit Provider General Practice
DX: R19.7 Diarrhea, unspecified (principal); R50.9 Fever, unspecified
CPT/HCPCS: 87329; 87505; 83630; 87324

== ENCOUNTER 2017-10-02 15:00 | Emergency (ER) | payer MEDICARE, MEDICAID, SELFPAY ==
[2017-10-02 15:08] VITALS: BP 104/74; PULSE 78; RESP 16; TEMP 36.6; O2SAT 98
--- NOTE | 2017-10-02 15:20 | ED.GENADUL ---
Disposition Clinical Impression: Abdominal pain Disposition: OTHER Condition: Stable Medical Decision Making - Medical Decision Making pt here with continued n/v/d and abdominal pain for over a week with reassuring recent imaging and lab work. Her exam is still benign. She could have now developed pancreatitis, cholecystitis, sbo, or could be ibs or fibromyalgia. Will eval with ct chest/abd/pelvis and lab work. Patient left shortly after our discussion without signing ama paperwork and before any w/u could be done. She had capacity to make her own decisions, she will return if she chooses to have further workup. PT eloped - Differential Diagnosis sbo, fibromyalgia, pancreatitis, ibs History of Present Illness - General Chief complaint: Abd Prob Stated complaint: PAIN IN STOMACH.ARM,VOMIT Time Seen by Provider: 10/02/17 15:11 Source: patient Mode of arrival: ambulatory Limitations: no limitations - History of Present Illness Initial comments: 32 yo female with hx of fibromyalgia, polycystic ovarian syndrome, prior gastric sleeve and cholecystectomy who comes in with continued nausea, vomit, diarrhea and abdominal pain. Was seen here last week and has had recent CT and lab work which showed no acute abnormalities, ? colon abnormality for which she is going to see general surgery for. She has been taking zofran and despite this still feels nausea. Saw her pcp Monday and states her stool studies were negative. She called her pcp again today and was advised to come here. She denies fevers. She has no guarding or rebound on abdominal exam and has mild tenderness on abdominal exam in all quadrants. Denies vaginal bleeding or d/c MD Complaint: abdominal pain Onset/Timin -: week(s) Location: abdomen Radiation: non-radiation Severity scale (1-10): 8 Quality: aching Consistency: constant Improves with: none Worsens with: none Associated Symptoms: nausea/vomiting Treatments Prior to Arrival: other (zofran) - Related Data BusPIRone [Buspar] 30 mg PO DAILY 08/22/17 DULoxetine [Cymbalta] 60 mg PO BID 08/22/17 Eszopiclone [Lunesta] 5 mg PO HS 08/22/17 Prazosin HCl 4 mg PO HS 08/22/17 Albuterol Sulfate [Proair Hfa] 2 puff IH Q4H PRN inhaler 09/25/17 Ferrous Sulfate 324 mg PO DAILY #30 tab 08/13/18 Folic Acid 4 mg PO DAILY #30 tab 09/25/17 Omeprazole 20 mg PO DAILY tab-cap 09/25/17 Topiramate [Topamax] 50 mg PO BID tab-cap 09/25/17 Flovent IH DIRECTED 09/26/17 Trazodone HCl 400 mg PO HS tab-cap 09/26/17 Ondansetron [Zofran Odt] 4 mg PO Q8H #12 tab.rapdis 09/27/17 Allergies Allergy/AdvReac Type Severity Reaction Status Date / Time ibuprofen Allergy Severe Anaphylaxsi Unverified 10/02/17 15:11 s salicylates Allergy Severe Anaphylaxsi Unverified 10/02/17 15:11 s bee Allergy Severe Anaphylaxsi Uncoded 10/02/17 15:11 s Review of Systems Constitutional: denies: fever Respiratory: denies: shortness of breath Cardiovascular: chest pain (states interimittent left sided chest pain for a day or so that is not exertional, doesn't radiate or have diaphroesis) Gastrointestinal: abdominal pain, nausea, vomiting Musculoskeletal: denies: back pain Neurological: denies: headache Comment: All other systems reviewed and negative Past Medical History - Past Medical History Medical history: asthma, fibromyalgia, GERD, seizures Fibromyalgia, polycystic ovarian syndrome Surgical history: cholecystectomy, bilateral tubal ligation, other (Knee and tibial surgery, gastric bypass) - Social History Alcohol use: none Drug use: none General Exam - General Limitations: no limitations General appearance: alert, in no apparent distress - Head Head exam: Present: atraumatic - Eye Eye exam: Present: normal apperance - ENT ENT exam: Present: mucous membranes moist - Neck Neck exam: Present: normal inspection - Respiratory Respiratory exam: Absent: respiratory distress - Cardiovascular Cardiovascular Exam: Present: regular rate - GI/Abdominal GI/Abdominal exam: Present: soft, tenderness. Absent: distended, guarding, rebound, rigid - Extremities Exam Extremities exam: Present: normal inspection. Absent: pedal edema - Neurological Exam Neurological exam: Present: alert, oriented X3 - Psychiatric Psychiatric exam: Present: flat affect. Absent: homicidal ideation, suicidal ideation - Skin Skin exam: Present: warm Course Vital Signs - 24 hr 10/02/17 15:08 Temperature 97.9 F Pulse 78 Respiratory 16 Rate Blood Pressure 104/74 Pulse Oximetry 98
--- NOTE | 2017-10-03 10:46 | NUR.NOTE ---
Nursing Note: 10/02/16 1520 Pt left after talking to Dr Pablo.
== END 2017-10-02 15:20 | disposition other institution (70) ==
PROVIDERS: Emergency Provider Emergency Medicine; PCP General Practice
DX: R10.84 Generalized abdominal pain (principal); R11.2 Nausea with vomiting, unspecified; R50.9 Fever, unspecified; Z53.29 Procedure and treatment not carried out because of patient's decision for other reasons; Z98.84 Bariatric surgery status

== ENCOUNTER 2017-10-02 21:18 | Emergency (ER) | payer MEDICARE, MEDICAID, SELFPAY ==
--- NOTE | 2017-10-02 21:23 | DI.RPTCT_ITS ---
SYMPTOM/DIAGNOSIS: CHEST AND ABDOMINAL PAIN CT ANGIOGRAPHY CHEST, ABDOMEN AND PELVIS: There is no evidence of pulmonary emboli or aortic dissection. The lungs appear clear. No pleural or pericardial effusions are seen. There is no evidence of a displaced rib fracture or pneumothorax. The abdominal aorta is normal in diameter. No significant stenosis or vascular occlusion seen. The liver, spleen, pancreas , kidneys and adrenals are unremarkable. The appendix appears normal. The patient is status post cholecystectomy. No free air or free fluid is seen. There is a tiny fat containing umbilical hernia. The uterus, ovaries and bladder are unremarkable. Suture material is noted at the stomach. There is no bowel dilatation. IMPRESSION: Negative CT angiography of the chest, abdomen and pelvis.
--- NOTE | 2017-10-02 21:24 | ED.GENADUL ---
Disposition Clinical Impression: Chest pain Disposition: HOME Condition: Stable Instructions: Chest Pain (ED) Additional Instructions: follow up with your primary care provider this week if you have fevers, worsening shortness of breath or pain return to the emergency department Prescriptions: Prochlorperazine Maleate [Compazine] 10 mg PO Q8H PRN PRN #20 tablet PRN Reason: Nausea / Vomiting Medical Decision Making - Lab Data Results reviewed for labs ordered during visit: Yes - EKG Data -: EKG Interpreted by Me EKG shows normal: sinus rhythm, axis, intervals, QRS complexes, ST-T waves Rate: normal Interpretation: normal EKG - Radiology Data Radiology results: image reviewed - Medical Decision Making pt here with pain that could be due to number of potential causes, acs though her heart score is only 0, dissection, PE, will obtain imaging and also evaluate with lab work for possible pancreatitis and hepatitis. pt remains stable, has pain with palpation to anterior chest now. AWaiting labs and imaging results, I do not see any acute findings on the imaging labs show anion gap of 16 likely from dehydration, mild low K and magnesium. Will give another liter of fluid. PT is in stretcher in no distress using ipad Pt remains stable, still don't have imaging results. Discussed with patient if imaging is negative she will be d/c'd home to f/u with pcp for continued management of her symptoms, I suspect her n/v is causing some esophageal pain. Dr. Brito will f/u on imaging results - Differential Diagnosis acs, pe, dissection History of Present Illness - General Stated complaint: CHEST PAIN Time Seen by Provider: 10/02/17 21:22 Source: patient Mode of arrival: ambulatory Limitations: no limitations - History of Present Illness Initial comments: 32 yo female with hx of gastric sleeve, fibromyalgia, who comes in with cc of chest pain. She has been seen recently for abdominal pain and has had negative work up including ct and lab work, though her CT did mention abnormality of colon and is scheduled to have outpatient colonoscopy per pt, who comes in with chest pain since this morning. She localizes it to the anterior chest and states it moves to the epigastric area and back. She has no pain with exertion nor difficulty breathing per pt. Has mild epigastric pain on exam MD Complaint: chest pain Onset/Timin -: days(s) Location: chest Radiation: back Severity scale (1-10): 7 Quality: stabbing Consistency: constant Improves with: none Worsens with: none Associated Symptoms: other (abd pain) Treatments Prior to Arrival: none - Related Data BusPIRone [Buspar] 30 mg PO DAILY 08/22/17 DULoxetine [Cymbalta] 60 mg PO BID 08/22/17 Eszopiclone [Lunesta] 5 mg PO HS 08/22/17 Prazosin HCl 4 mg PO HS 08/22/17 Albuterol Sulfate [Proair Hfa] 2 puff IH Q4H PRN inhaler 09/25/17 Ferrous Sulfate 324 mg PO DAILY #30 tab 09/25/17 Folic Acid 4 mg PO DAILY #30 tab 09/25/17 Omeprazole 20 mg PO DAILY tab-cap 09/25/17 Topiramate [Topamax] 50 mg PO BID tab-cap 09/25/17 Flovent IH DIRECTED 09/26/17 Trazodone HCl 400 mg PO HS tab-cap 09/26/17 Ondansetron [Zofran Odt] 4 mg PO Q8H #12 tab.rapdis 09/27/17 Prochlorperazine Maleate [Compazine] 10 mg PO Q8H PRN PRN #20 tablet 10/02/17 Allergies Allergy/AdvReac Type Severity Reaction Status Date / Time ibuprofen Allergy Severe Anaphylaxsi Unverified 10/02/17 22:18 s salicylates Allergy Severe Anaphylaxsi Unverified 10/02/17 22:18 s bee Allergy Severe Anaphylaxsi Uncoded 10/02/17 22:18 s Review of Systems Constitutional: denies: chills, fever Respiratory: denies: shortness of breath Cardiovascular: chest pain Gastrointestinal: abdominal pain, nausea, vomiting Neurological: denies: headache Comment: All other systems reviewed and negative Past Medical History - Past Medical History Medical history: asthma, fibromyalgia, GERD, seizures Fibromyalgia, polycystic ovarian syndrome Surgical history: cholecystectomy, bilateral tubal ligation, other (Knee and tibial surgery, gastric bypass) - Social History Alcohol use: none Drug use: none General Exam - General Limitations: no limitations General appearance: alert, in no apparent distress - Head Head exam: Present: atraumatic - Eye Eye exam: Present: normal apperance - ENT ENT exam: Present: mucous membranes moist - Neck Neck exam: Present: normal inspection - Respiratory Respiratory exam: Absent: respiratory distress - Cardiovascular Cardiovascular Exam: Present: regular rate - GI/Abdominal GI/Abdominal exam: Present: soft, tenderness. Absent: distended, guarding, rebound, rigid - Extremities Exam Extremities exam: Present: normal inspection. Absent: pedal edema - Neurological Exam Neurological exam: Present: alert, oriented X3 - Psychiatric Psychiatric exam: Present: flat affect. Absent: homicidal ideation, suicidal ideation - Skin Skin exam: Present: warm
[2017-10-02 21:27] VITALS: BP 114/76; PULSE 79; RESP 18; TEMP 36.4; O2SAT 98
[2017-10-02] MEDS: Normal Saline 1,000 ML 1000 ML IV (22:10)
[2017-10-02] MEDS: Omnipaque 350 MG/ML 100 ML BTL IJ (22:10)
[2017-10-02 22:13] LABS: Abs Immature Grans 0.01 k/cumm (0.0-0.09); Absolute Basophil Count 0.02 k/cumm (0.0-0.2); Absolute Eosinophil Count 0.05 k/cumm (0.0-0.7); Absolute Lymphocyte Count 2.08 k/cumm (1.2-3.4); Absolute Monocyte Count 0.56 k/cumm (0.11-0.7); Absolute Neutrophil Count 6.29 k/cumm (1.2-6.7); Basophils % 0.2; Eosinophils % 0.6; HCT 32.9 % (36.0-46.0); HGB 11.1 g/dL (12.0-15.5); Immature Grans % 0.1; Lymphocytes % 23.1; Mean Corp. HGB Concentration 33.7 g/dL (32.0-36.0); Mean Corpuscular Hemoglobin 28.4 pg (27.0-33.0); Mean Corpuscular Volume 84.1 fL (80-95); Mean Platelet Volume 11.1 fL (8.0-11.0); Monocytes % 6.2; Neutrophils % 69.8; Platelet Count 257 x1000/uL (130-400); RBC 3.91 m/cumm (4.00-5.20); RBC Distribution Width 14.7 % (11.7-14.6); White Blood Cell Count 9.01 k/cumm (4.4-10.8)
[2017-10-02 22:15] LABS: ALT 16 U/L (12-78); AST 13 U/L (15-37); Albumin 3.2 g/dL (3.4-5.0); Alkaline Phosphatase 124 U/L (46-116); Anion Gap 16.7 mmol/L (3-11); BUN 12 mg/dL (7-18); Bilirubin, Total 0.4 mg/dL (0.2-1.0); CO2 18.3 mmol/L (21.0-32.0); CREATININE 1.12 mg/dL (0.55-1.02); Calcium 8.2 mg/dL (8.5-10.1); Chloride 102 mmol/L (98-107); Estimated GFR 55.69 (mL/min/1.73m2); Glucose 71 mg/dL (70-100); Lipase 193 U/L (73-393); Magnesium 1.5 mg/dL (1.8-2.4); Potassium 3.3 mmol/L (3.5-5.1); Sodium 137 mmol/L (136-145); Total Protein 7.6 g/dL (6.4-8.2)
[2017-10-02 22:36] LABS: Troponin I < 0.02 ng/mL (0.00-0.06)
[2017-10-02] MEDS: Lactated Ringers 1,000 ML 1000 ML IV (22:51)
[2017-10-02 22:52] LABS: PTT Activated 26.4 sec (21.0-31.4); Prothrombin Time 10.1 sec (9.3-10.8)
[2017-10-02] MEDS: Prochlorperazine 10 MG/2 ML VIAL IVP (22:52)
[2017-10-02 22:57] VITALS: BP 100/70; PULSE 64; RESP 16; TEMP 36.5; O2SAT 98
--- NOTE | 2017-10-02 23:02 | DI.VRAD_ITS ---
EXAM: CT Angiography Chest With Intravenous Contrast CLINICAL HISTORY: 32 years old, female; Pain; Chest pain; Type not specified; Abdominal pain; Generalized; Patient HX: Chest and abdominal pain TECHNIQUE: Axial computed tomographic angiography images of the chest with intravenous contrast using pulmonary embolism protocol. MIP reconstructed images were created and reviewed. COMPARISON: No relevant prior studies available. FINDINGS: Pulmonary arteries: Unremarkable. No pulmonary embolism. Aorta: No aneurysm. No dissection. Lungs: Unremarkable. Pleural space: Small bilateral pleural effusions. No pneumothorax. Heart: Unremarkable. No cardiomegaly. No significant pericardial effusion. Bones/joints: No acute fracture. Soft tissues: Unremarkable. Lymph nodes: Unremarkable. No enlarged lymph nodes. IMPRESSION: No evidence of pulmonary emboli, aneurysm or dissection. Small bilateral pleural effusions. EXAM: CT Angiography Abdomen and Pelvis With Intravenous Contrast EXAM DATE/TIME: Exam ordered 10/02/2017 9:24 PM CLINICAL HISTORY: 32 years old, female; Pain; Chest pain; Type not specified; Abdominal pain; Generalized; Patient HX: Chest and abdominal pain TECHNIQUE: Axial computed tomographic angiography images of the abdomen and pelvis with intravenous contrast. MIP reconstructed images were created and reviewed. COMPARISON: No relevant prior studies available. FINDINGS: VASCULATURE: Aorta: No aneurysm. No dissection. Celiac trunk and mesenteric arteries: No occlusion or significant stenosis. Renal arteries: No occlusion or significant stenosis. Iliac arteries: No occlusion or significant stenosis. Lung bases: Unremarkable. No mass. No consolidation. ABDOMEN: Liver: Unremarkable. No mass. Gallbladder and bile ducts: Cholecystectomy. No biliary duct ductal dilatation. Pancreas: Unremarkable. . Spleen: Unremarkable. Adrenals: Unremarkable. Kidneys and ureters: Unremarkable. Stomach and bowel: Gastric sleeve. No obstruction. No mucosal thickening. PELVIS: Appendix: Normal appendix. Bladder: Unremarkable. No mass. Reproductive: Stable 1.4 cm left ovarian cyst. ABDOMEN and PELVIS: Intraperitoneal space: Unremarkable. No significant fluid collection. No free air. Bones/joints: No acute fracture. No dislocation. Soft tissues: Tiny fat containing umbilical hernia. Lymph nodes: Unremarkable. No enlarged lymph nodes. IMPRESSION: No acute findings. Dictated and Authenticated by: Jessica Puckett MD. Ordering:KANU HART MD
--- NOTE | 2017-10-03 08:02 | PDOC.ERCMPRO ---
Care Management Progress Note 10/03-Dr. courtney requested assistance with Alisia. She was seen twice in the ED last evening, eloping once. Alisia has been seen in the ED 9 times since August 22. Referral faxed to Dr. Lyle (PCP)office this a.m. for a f/u appt FLAVIA to discuss care planning.
== END 2017-10-02 23:30 | disposition home or self-care (01) ==
PROVIDERS: Emergency Provider Emergency Medicine; PCP General Practice
DX: R07.9 Chest pain, unspecified (principal); J90 Pleural effusion, not elsewhere classified; R10.13 Epigastric pain; Z98.84 Bariatric surgery status
CPT/HCPCS: 74177; 93005; 96361; 96374; 99281 ×2; 99284; 99285; J0780; 36415; 80053; 83690; 83735; 84484; 85025; 85610; 85730; 93010; J3490

== ENCOUNTER → 2017-10-04 08:35 | Outpatient (CLI) | payer MEDICARE, MEDICAID, SELFPAY | PROVIDERS: PCP General Practice; Visit Provider Surgery | DX: R10.84 Generalized abdominal pain (principal) | CPT/HCPCS: 99213 ==

== ENCOUNTER → 2017-10-06 15:38 | Outpatient (REF) | payer MEDICARE, MEDICAID, SELFPAY | LOC: LBN 15:38 | PROVIDERS: PCP General Practice; Visit Provider General Practice | DX: R19.7 Diarrhea, unspecified (principal) | CPT/HCPCS: 87177 ==

== ENCOUNTER 2017-10-17 08:13 | Day surgery (SDC) | payer MEDICARE, MEDICAID, SELFPAY ==
[2017-10-17 08:54] VITALS: BP 98/62; PULSE 84; RESP 16; TEMP 37.6; O2SAT 94
[2017-10-17] MEDS: Lactated Ringers 1,000 ML 30 ML IV ×2 (09:30→12:05)
--- NOTE | 2017-10-17 11:29 | STOM_PTH ---
PATIENT: Alisia Hein LOC: [facility] U#:[id number] AGE/SX: 32/F ROOM: RE10/17/[address]: Darwin Roberts DO : 1985 BED: DIS: 10/17/2017 SPEC #: [id number] RECD: 10/17/17 12:48 STATUS: LEIA REQ #: [id number] JOSE: 10/17/17 11:[address]: Darwin Roberts DEPT: Surgical Specimen RECD BY: Shanel Rodriguez ENTERED: 10/17/17 12:49 SP TYPE: STOMACH OTHR DR: Madhu Lyle Tissues: 1 - STOMACH BIOPSY Procedures: GROSS AND MICRO LEVEL 4 Comments: [id number]
--- NOTE | 2017-10-17 12:08 | W.PM.DSUDISC ---
Discharge Plan Discharge Details Reason For Visit: ABDOMINAL PAIN Attending Provider: Darwin Roberts Primary Care Provider: Madhu Lyle Disposition Patient Disposition: HOME Condition: Good Home Meds and New Rx's Prescriptions: Continue omeprazole 20 MG capsule,delayed release(DR/EC) 20 mg PO DAILY RF: 0 albuterol sulfate [ProAir HFA] 8.5 GM HFA aerosol inhaler 2 puff Inhalation Q4H PRN RF: 0 topiramate [Topamax] 50 MG tablet 50 mg PO BID RF: 0 folic acid 1 MG tablet 4 mg PO DAILY Qty: 30 RF: 4 ferrous sulfate 324 MG tablet,delayed release (DR/EC) 324 mg PO DAILY Qty: 30 RF: 4 trazodone 100 MG tablet 400 mg PO HS RF: 0 FLOVENT Inhalation DIRECTED RF: 0 ondansetron [Zofran ODT] 4 MG tablet,disintegrating 4 mg PO Q8H Qty: 12 RF: 0 prochlorperazine maleate [Compazine] 10 MG tablet 10 mg PO Q8H PRN PRN (Reason: Nausea / Vomiting) Qty: 20 RF: 0 prazosin 1 MG capsule 4 mg PO HS RF: 0 buspirone 15 MG tablet 30 mg PO DAILY RF: 0 duloxetine [Cymbalta] 60 MG capsule,delayed release(DR/EC) 60 mg PO BID RF: 0 eszopiclone [Lunesta] 1 MG tablet 5 mg PO HS RF: 0 Discontinued polyethylene glycol 3350 [Miralax] 17 GM powder in packet 17 g PO DAILY Qty: 255 RF: 0 bisacodyl [Dulcolax (bisacodyl)] 5 MG tablet,delayed release (DR/EC) 5 mg PO ONCE Qty: 4 RF: 0 Discharge Instructions Instructions: Upper Endoscopy (DC), Colonoscopy (DC) Discharge Orders Discharge Orders: Discharge Order (Routine); Ordered 10/17/17 Ordered By: Darwin Roberts DS: Diagnosis Discharge Diagnosis (1) Nausea vomiting and diarrhea: Start date: 10/17/17 Start time: 12:10 Status: Acute Problem details: EGD showed gastritis awaiting pathology results, question dumping syndrome (2) Gastritis: Start date: 10/17/17 Start time: 12:11 Status: Acute Problem details: Continue omeprazole, awaiting biopsy results
[2017-10-17 12:52] VITALS: BP 94/69; PULSE 70; RESP 18; TEMP 37; O2SAT 98
--- NOTE | 2017-10-17 14:08 | W.PM.OP ---
Date of service: 10/17/17 Time of Service: 14:08 Operative Note Date of procedure: 10/17/17 Pre-op diagnosis: Nausea Vomiting diarrhea Post-op diagnosis: other (1. Gastritis 2. Normal colon to the cecum) Procedure: 1. Esophagogastroduodenoscopy with biopsies by cold forceps to 2. Colonoscopy the cecum Surgeon: Darwin Roberts Anesthesia: MAC (Sally Shearer, SUPERIOR COURT JUSTICE ASA 2, Mallampati class II) Estimated blood loss (mL): 1.0 Pathology: other Complications: None Patient was transported to: same day Patient's condition: stable Indications: 32-year-old woman with 3 weeks of nausea, vomiting, diarrhea, and associated generalized abdominal pain. She denies any sick contacts. She is started no new medications, or change in her diet. She has had a gastric bypass, with sleeve gastrectomy. Infectious workup has been negative. It was recommended that she undergo upper and lower endoscopy to rule out occult causes of her nausea vomiting diarrhea. The procedures were reviewed with her, and the risks discussed. All her questions were answered to her and her 's satisfaction. Findings: On upper endoscopy, examining the upper gastrointestinal tract from the oropharynx to the third portion of the duodenum, it was noted that there were several shallow ulcerations seen in the gastric antrum. Biopsies were taken for confirmation. On colonoscopy, examining the colon from the cecum to the anus no abnormalities were noted Procedure Description: The patient was brought to the preanesthesia staging.. Her identification was confirmed consent signed. She was then brought to the procedure room. Monitoring for telemetry end-tidal CO2 O2 saturation blood pressure were applied, and appropriate timeout was taken reviewing the patient's identification, allergies, medications, and procedure. She was positioned in the left lateral decubitus, a bite block was placed. Sedation was titrated for effect by the SUPERIOR COURT JUSTICE; once adequate sedation was reached started the procedure. I advanced the Olympus variable stiffness endoscope from the oropharynx to the third portion of the duodenum without the difficulty. Note is made of the tubularization of the stomach from her gastric sleeve procedure. I withdrew the scope and circumferential manner from the duodenum back to the oropharynx. In doing this, the duodenum was noted to be normal. Upon entering the stomach the gastric antrum was noted to have multiple shallow ulcerations. Biopsies were taken and sent for pathology. I was unable to retroflex the scope due to the tubularization of the stomach. The what I could visualize upon withdrawing the scope other than the gastric antrum appeared grossly normal. The GE junction was measured at 33 cm, the Z line was at 33 cm and regular. I withdrew the scope through the remainder of the esophagus all which appeared mostly normal. The scope was then withdrawn terminating the upper endoscopy. I repositioned for colonoscopy The patient's sedation was checked for adequacy by the SUPERIOR COURT JUSTICE. Once adequate sedation was confirmed. I performed a digital rectal exam which showed no gross blood no masses adequate rectal tone. I then advanced the Olympus video stiffness colonoscope from the anus to the cecum under direct visualization. The cecum was identified by the appendiceal orifice and the ileocecal valve. Scope was then withdrawn in circumferential manner from the cecum to the rectum. Upon withdrawal, no abnormalities were noted of the colon. The scope was then withdrawn into the rectum, and no abnormalities were noted. I retroflexed the scope in the rectum and saw no abnormalities of the rectum or anorectal junction. The scope was then withdrawn terminating the colonoscopy. There were no complications during the procedure, and the patient tolerated the procedure well. She was returned to the day surgery recovery area in good condition. Plan: I will have this Hein continue her omeprazole until I have pathology results back from the upper endoscopy. The ulcers could be the cause of her nausea and vomiting and possibly diarrhea. Also question a dumping syndrome given her history of a gastric bypass. Further recommendations will be pending diagnostic findings.
--- NOTE | 2017-10-17 14:12 | ROE_ITS ---
Date of service: 10/17/17 Time of Service: 14:08 Operative Note Date of procedure: 10/17/17 Pre-op diagnosis: Nausea Vomiting diarrhea Post-op diagnosis: other (1. Gastritis 2. Normal colon to the cecum) Procedure: 1. Esophagogastroduodenoscopy with biopsies by cold forceps to 2. Colonoscopy the cecum Surgeon: Darwin Roberts Anesthesia: MAC (Sally Shearer, AUTOMOTIVE MANAGER ASA 2, Mallampati class II) Estimated blood loss (mL): 1.0 Pathology: other Complications: None Patient was transported to: same day Patient's condition: stable Indications: 32-year-old woman with 3 weeks of nausea, vomiting, diarrhea, and associated generalized abdominal pain. She denies any sick contacts. She is started no new medications, or change in her diet. She has had a gastric bypass , with sleeve gastrectomy. Infectious workup has been negative. It was recommended that she undergo upper and lower endoscopy to rule out occult causes of her nausea vomiting diarrhea. The procedures were reviewed with her, and the risks discussed. All her questions were answered to her and her 's satisfaction. Findings: On upper endoscopy, examining the upper gastrointestinal tract from the oropharynx to the third portion of the duodenum, it was noted that there were several shallow ulcerations seen in the gastric antrum. Biopsies were taken for confirmation. On colonoscopy, examining the colon from the cecum to the anus no abnormalities were noted Procedure Description: The patient was brought to the preanesthesia staging.. Her identification was confirmed consent signed. She was then brought to the procedure room. Monitoring for telemetry end-tidal CO2 O2 saturation blood pressure were applied, and appropriate timeout was taken reviewing the patient' s identification, allergies, medications, and procedure. She was positioned in the left lateral decubitus, a bite block was placed. Sedation was titrated for effect by the AUTOMOTIVE MANAGER; once adequate sedation was reached started the procedure. I advanced the Olympus variable stiffness endoscope from the oropharynx to the third portion of the duodenum without the difficulty. Note is made of the tubularization of the stomach from her gastric sleeve procedure. I withdrew the scope and circumferential manner from the duodenum back to the oropharynx. In doing this, the duodenum was noted to be normal. Upon entering the stomach the gastric antrum was noted to have multiple shallow ulcerations. Biopsies were taken and sent for pathology. I was unable to retroflex the scope due to the tubularization of the stomach. The what I could visualize upon withdrawing the scope other than the gastric antrum appeared grossly normal. The GE junction was measured at 33 cm, the Z line was at 33 cm and regular. I withdrew the scope through the remainder of the esophagus all which appeared mostly normal. The scope was then withdrawn terminating the upper endoscopy. I repositioned for colonoscopy The patient's sedation was checked for adequacy by the AUTOMOTIVE MANAGER. Once adequate sedation was confirmed. I performed a digital rectal exam which showed no gross blood no masses adequate rectal tone. I then advanced the Olympus video stiffness colonoscope from the anus to the cecum under direct visualization. The cecum was identified by the appendiceal orifice and the ileocecal valve. Scope was then withdrawn in circumferential manner from the cecum to the rectum. Upon withdrawal, no abnormalities were noted of the colon. The scope was then withdrawn into the rectum, and no abnormalities were noted. I retroflexed the scope in the rectum and saw no abnormalities of the rectum or anorectal junction. The scope was then withdrawn terminating the colonoscopy. There were no complications during the procedure, and the patient tolerated the procedure well. She was returned to the day surgery recovery area in good condition. Plan: I will have this Hein continue her omeprazole until I have pathology results back from the upper endoscopy. The ulcers could be the cause of her nausea and vomiting and possibly diarrhea. Also question a dumping syndrome given her history of a gastric bypass. Further recommendations will be pending diagnostic findings.
== END 2017-10-17 13:10 | disposition home or self-care (01) ==
PROVIDERS: PCP General Practice; Visit Provider Surgery
PROC: (CPT 43239; principal; 2017-10-17 09:25)
DX: R19.7 Diarrhea, unspecified (principal); R11.2 Nausea with vomiting, unspecified; K31.89 Other diseases of stomach and duodenum; K29.70 Gastritis, unspecified, without bleeding; K21.9 Gastro-esophageal reflux disease without esophagitis
CPT/HCPCS: 43239; 45380; 88305

== ENCOUNTER → 2017-11-29 08:17 | Outpatient (BNVA) | payer MEDICARE, MEDICAID, SELFPAY | PROVIDERS: PCP General Practice; Referring Provider General Practice; Visit Provider Student in an Organized Health Care Education/Training Program | DX: T84.84XA Pain due to internal orthopedic prosthetic devices, implants and grafts, initial encounter (principal); M25.561 Pain in right knee | CPT/HCPCS: 99213 ==

== ENCOUNTER 2017-12-04 12:27 | Outpatient (REF) | payer MEDICARE, MEDICAID, SELFPAY | END 2017-12-04 12:47 | LOC: LBN 12:27 | PROVIDERS: PCP General Practice; Visit Provider General Practice | DX: M86.68 Other chronic osteomyelitis, other site (principal); S81.001D Unspecified open wound, right knee, subsequent encounter | CPT/HCPCS: 87077; 87070; 87186; 87205 ==

== ENCOUNTER 2017-12-12 12:41 | Outpatient (CLI) | payer MEDICARE, MEDICAID, SELFPAY ==
[2017-12-12 13:52] LABS: Bilirubin Negative (Negative); Blood Negative (Negative); Clarity Clear; Glucose Negative (Negative); Ketones Negative (Negative); Leukocyte Esterase Negative (Negative); Nitrite Negative (Negative); Urobilinogen 0.2 EU/dL (Up TO 0.2); pH 5.5 (5-8)
== END 2017-12-12 13:01 ==
PROVIDERS: PCP General Practice; Visit Provider General Practice
DX: R10.9 Unspecified abdominal pain (principal)
CPT/HCPCS: 81003

== ENCOUNTER 2018-01-03 09:03 | Outpatient (CLI) | payer MEDICARE, MEDICAID, SELFPAY ==
[2018-01-03 10:17] LABS: HCT 31.6 % (36.0-46.0); HGB 9.7 g/dL (12.0-15.5); Mean Corp. HGB Concentration 30.7 g/dL (32.0-36.0); Mean Corpuscular Hemoglobin 26.5 pg (27.0-33.0); Mean Corpuscular Volume 86.3 fL (80-95); Mean Platelet Volume 10.8 fL (8.0-11.0); Platelet Count 277 x1000/uL (130-400); RBC 3.66 m/cumm (4.00-5.20); RBC Distribution Width 14.1 % (11.7-14.6); White Blood Cell Count 6.92 k/cumm (4.4-10.8)
[2018-01-03 11:24] LABS: C-Reactive Protein 1.76 mg/dL (0.0-0.3)
--- NOTE | 2018-01-07 11:22 | W.PREOPHP ---
Assessment and Plan (1) Infected hardware in right leg: Current visit: No Status: Acute Removal of hardware, debridement and closure of infection site. Details of surgery were discussed with patient as well as risks and pertinent anatomy. All questions were answered. History of Present Illness Chief Complaint: History of hardware and chronic lesion of the right knee Narrative: Alisia is a 32-year-old female is coming complaining of a chronic weeping lesion of her right knee, and right knee pain. She has a significant history with this right knee including multiple right knee surgeries as a kid, including osteotomies as well as ORIF of a tibial plateau fracture of the right knee resulting in multiple percutaneous screws in place. She also has an area of the anterior portion of her tibia that seems to be a chronic lesion that scabs over and then opens up again, resulting in drainage and pus. Because of this chronic open wound, and pain in the right knee, Dr. Joseph does suggest removal of all the hardware in her knee. He does instruct her that the incisions will be a little bit bigger to ensure that he is able to get those out, and also the sinus tract that is likely formed between the hardware and the weeping wound will be debrided and closed. Alisia is anxious to proceed with this procedure. Pertinent Surgical Information Patient does have a history of seizures, the last one according to her was 9 months ago. This appears to be pretty well controlled with medication. Patient denies history of hypertension, CVA, VT, angina, COPD, renal or liver disorders, hepatitis, bleeding disorders, diabetes, immune or thyroid disorders. No complications from anesthesia. Review of Systems Constitutional Denies fever(s) ENT Denies dizziness and Denies sore throat Cardiovascular Denies chest pain, Denies palpitations and Denies dyspnea Respiratory Denies dyspnea Gastrointestinal Denies abdominal pain, Denies melena, Denies hematochezia, Denies diarrhea, Denies nausea and Denies vomiting Genitourinary Denies hematuria and Denies dysuria Neurologic Denies dizziness Endocrine Denies palpitations PFSH Family History Mother No problems noted. Father Diabetes Heart disease Medical History Gastritis (Acute) Asthma Depression Fibromyalgia GERD (gastroesophageal reflux disease) Obesity (BMI 30-39.9) PCOS (polycystic ovarian syndrome) Seizures Social History Smoking/Tobacco Use Status: Never alcohol intake: never Surgical History H/O colonoscopy (Chronic 10/17/17) History of esophagogastroduodenoscopy (EGD) (Chronic 10/17/17) Cholecystectomy (~2002) Gastric Bypass (02/13/13) Replacement of total knee joint (11/29/16) bilateral tubal ligation Meds Home Medications Medication Instructions Recorded Confirmed Type buspirone 30 mg PO DAILY 08/22/17 01/03/18 History duloxetine [Cymbalta] 60 mg PO BID 08/22/17 01/03/18 History eszopiclone [Lunesta] 5 mg PO HS 08/22/17 01/03/18 History prazosin 4 mg PO HS 08/22/17 01/03/18 History albuterol sulfate [ProAir HFA] 2 puff INHALATION Q4H PRN inhaler 09/25/17 01/03/18 History ferrous sulfate 324 mg PO DAILY #30 tab 09/25/17 01/03/18 Rx folic acid 4 mg PO DAILY #30 tab 09/25/17 01/03/18 Rx omeprazole 20 mg PO DAILY tab-cap 09/25/17 01/03/18 History topiramate [Topamax] 50 mg PO BID tab-cap 09/25/17 01/03/18 History trazodone 400 mg PO HS tab-cap 09/26/17 01/03/18 History ondansetron [Zofran ODT] 4 mg PO Q8H #12 tab.rapdis 09/27/17 01/03/18 Rx prochlorperazine maleate 10 mg PO Q8H PRN PRN #20 tab 10/02/17 01/03/18 Rx [Compazine] fluticasone [Flovent HFA] 1 puff INHALATION DAILY PRN 01/03/18 01/03/18 History Allergies Allergy/AdvReac Type Severity Reaction Status Date / Time ibuprofen Allergy Severe Anaphylaxsi Unverified 01/03/18 10:09 s salicylates Allergy Severe Anaphylaxsi Unverified 01/03/18 10:09 s bee Allergy Severe Anaphylaxsi Uncoded 01/03/18 10:09 s Exam HENGA Head: normocephalic and atraumatic General nose exam: no nasal discharge Throat: uvula midline and no uvular edema Other: soft palate rises symmetrically, no erythema Eyes Conjunctivae: conjunctivae normal Sclera: sclerae normal Pupils: PERRL Resp Effort & Inspection: normal respiratory effort Auscultation: clear to auscultation bilaterally and no wheezes Cardio Rate: regular rate Rhythm: regular rhythm Heart Sounds: S1 normal, S2 normal and no murmurs Results Labs : 01/03/18 09:50
--- NOTE | 2018-01-07 11:30 | HPE_ITS ---
Assessment and Plan (1) Infected hardware in right leg: Current visit: No Status: Acute Removal of hardware, debridement and closure of infection site. Details of surgery were discussed with patient as well as risks and pertinent anatomy. All questions were answered. History of Present Illness Chief Complaint: History of hardware and chronic lesion of the right knee Narrative: Alisia is a 32-year-old female is coming complaining of a chronic weeping lesion of her right knee, and right knee pain. She has a significant history with this right knee including multiple right knee surgeries as a kid, including osteotomies as well as ORIF of a tibial plateau fracture of the right knee resulting in multiple percutaneous screws in place. She also has an area of the anterior portion of her tibia that seems to be a chronic lesion that scabs over and then opens up again, resulting in drainage and pus. Because of this chronic open wound, and pain in the right knee, Dr. Joseph does suggest removal of all the hardware in her knee. He does instruct her that the incisions will be a little bit bigger to ensure that he is able to get those out , and also the sinus tract that is likely formed between the hardware and the weeping wound will be debrided and closed. Alisia is anxious to proceed with this procedure. Pertinent Surgical Information Patient does have a history of seizures, the last one according to her was 9 months ago. This appears to be pretty well controlled with medication. Patient denies history of hypertension, CVA, NM, angina, COPD, renal or liver disorders, hepatitis, bleeding disorders, diabetes, immune or thyroid disorders. No complications from anesthesia. Review of Systems Constitutional Denies fever(s) ENT Denies dizziness and Denies sore throat Cardiovascular Denies chest pain, Denies palpitations and Denies dyspnea Respiratory Denies dyspnea Gastrointestinal Denies abdominal pain, Denies melena, Denies hematochezia, Denies diarrhea, Denies nausea and Denies vomiting Genitourinary Denies hematuria and Denies dysuria Neurologic Denies dizziness Endocrine Denies palpitations PFSH Family History Mother No problems noted. Father Diabetes Heart disease Medical History Gastritis (Acute) Asthma Depression Fibromyalgia GERD (gastroesophageal reflux disease) Obesity (BMI 30-39.9) PCOS (polycystic ovarian syndrome) Seizures Social History Smoking/Tobacco Use Status: Never alcohol intake: never Surgical History H/O colonoscopy (Chronic 10/17/17) History of esophagogastroduodenoscopy (EGD) (Chronic 10/17/17) Cholecystectomy (~2002) Gastric Bypass (02/13/13) Replacement of total knee joint (11/29/16) bilateral tubal ligation Meds Home Medications Medication Instructions Recorded Confirmed Type buspirone 30 mg PO DAILY 08/22/17 01/03/18 History duloxetine [Cymbalta] 60 mg PO BID 08/22/17 01/03/18 History eszopiclone [Lunesta] 5 mg PO HS 08/22/17 01/03/18 History prazosin 4 mg PO HS 08/22/17 01/03/18 History albuterol sulfate [ProAir HFA] 2 puff INHALATION Q4H PRN inhaler 09/25/1701/03 History ferrous sulfate 324 mg PO DAILY #30 tab 09/25/17 01/03/18 Rx folic acid 4 mg PO DAILY #30 tab 09/25/17 01/03/18 Rx omeprazole 20 mg PO DAILY tab-cap 09/25/17 01/03/18 History topiramate [Topamax] 50 mg PO BID tab-cap 09/25/17 01/03/18 History trazodone 400 mg PO HS tab-cap 09/26/17 01/03/18 History ondansetron [Zofran ODT] 4 mg PO Q8H #12 tab.rapdis 09/27/17 01/03/18 Rx prochlorperazine maleate 10 mg PO Q8H PRN PRN #20 tab 10/02/17 01/03/18 Rx [Compazine] fluticasone [Flovent HFA] 1 puff INHALATION DAILY PRN 01/03/18 01/03/18 History Allergies Allergy/AdvReac Type Severity Reaction Status Date / Time ibuprofen Allergy Severe Anaphylaxsi Unverified 01/03/18 10:09 s salicylates Allergy Severe Anaphylaxsi Unverified 01/03/18 10:09 s bee Allergy Severe Anaphylaxsi Uncoded 01/03/18 10:09 s Exam HENMO Head: normocephalic and atraumatic General nose exam: no nasal discharge Throat: uvula midline and no uvular edema Other: soft palate rises symmetrically, no erythema Eyes Conjunctivae: conjunctivae normal Sclera: sclerae normal Pupils: PERRL Resp Effort & Inspection: normal respiratory effort Auscultation: clear to auscultation bilaterally and no wheezes Cardio Rate: regular rate Rhythm: regular rhythm Heart Sounds: S1 normal, S2 normal and no murmurs Results Labs : 01/03/18 09:50
== END 2018-01-03 09:23 ==
PROVIDERS: PCP General Practice; Visit Provider Student in an Organized Health Care Education/Training Program
DX: T84.7XXD Infection and inflammatory reaction due to other internal orthopedic prosthetic devices, implants and grafts, subsequent encounter (principal); T84.84XD Pain due to internal orthopedic prosthetic devices, implants and grafts, subsequent encounter; Z01.818 Encounter for other preprocedural examination
CPT/HCPCS: 36415; 85027; NC; 86140

== ENCOUNTER → 2018-01-11 07:33 | Outpatient (BNVA) | payer MEDICARE, MEDICAID, SELFPAY | PROVIDERS: PCP General Practice; Referring Provider General Practice; Visit Provider Student in an Organized Health Care Education/Training Program | DX: R69 Illness, unspecified (principal) ==

== ENCOUNTER 2018-01-11 13:32 | Day surgery (SDC) | payer MEDICARE, MEDICAID, SELFPAY ==
[2018-01-11] VITALS (8 sets, daily range): BP systolic 111–135; BP diastolic 69–86; PULSE 63–89; RESP 14–93; TEMP 36.2–36.6; O2SAT 93–98
[2018-01-11] MEDS: Lactated Ringers 1,000 ML 80 ML IV (09:40)
--- NOTE | 2018-01-11 10:47 | DI.RAD_ITS ---
SYMPTOM/DIAGNOSIS: INFECTED HARDWARE RIGHT KNEE C-ARM FLUOROSCOPY: 01/11 Fluoroscopy Time: 68.3 sec C-arm fluoroscopy was utilized by Dr. Joseph during hardware removal from right knee. Hard copy shows removal of 3 lag screws from the proximal right tibia.
[2018-01-11] MEDS: Bupivacaine 0.25% Pres-Free 30 ML VIAL (12:52)
[2018-01-11] MEDS: Bupivacaine LIPOSOME/PF 133 MG/10 ML VIAL IJ (12:53)
--- NOTE | 2018-01-11 13:17 | W.PM.DSUDISC ---
Discharge Plan Disposition Patient Disposition: HOME Condition: Good Discharge Details Reason For Visit: INFECTED (R) TIBIA HARDWARE Admit Date/Time: 01/11/18 08:52 Admit Provider: Erasmo Joseph Attending Provider: Erasmo Joseph Primary Care Provider: Madhu Lyle Home Meds and New Rx's Prescriptions: New acetaminophen 500 mg capsule 1,000 mg PO Q8H PRN (Reason: pain) Qty: 90 RF: 0 oxycodone 5 mg tablet 5 mg PO Q4H Qty: 18 RF: 0 cephalexin 500 mg capsule 500 mg PO TID Qty: 42 RF: 1 Continue omeprazole 20 MG capsule,delayed release(DR/EC) 20 mg PO DAILY RF: 0 albuterol sulfate [ProAir HFA] 8.5 GM HFA aerosol inhaler 2 puff Inhalation Q4H PRN RF: 0 topiramate [Topamax] 50 MG tablet 50 mg PO BID RF: 0 folic acid 1 MG tablet 4 mg PO DAILY Qty: 30 RF: 4 ferrous sulfate 324 MG tablet,delayed release (DR/EC) 324 mg PO DAILY Qty: 30 RF: 4 trazodone 100 MG tablet 400 mg PO HS RF: 0 ondansetron [Zofran ODT] 4 MG tablet,disintegrating 4 mg PO Q8H Qty: 12 RF: 0 prochlorperazine maleate [Compazine] 10 MG tablet 10 mg PO Q8H PRN PRN (Reason: Nausea / Vomiting) Qty: 20 RF: 0 fluticasone [Flovent HFA] 110 mcg/actuation Hfa Aerosol Inhaler 1 puff INHALATION DAILY PRNRF: 0 prazosin 1 MG capsule 4 mg PO HS RF: 0 buspirone 15 MG tablet 30 mg PO DAILY RF: 0 duloxetine [Cymbalta] 60 MG capsule,delayed release(DR/EC) 60 mg PO BID RF: 0 eszopiclone [Lunesta] 1 MG tablet 5 mg PO HS RF: 0 Discharge Instructions Additional Instructions: Activity: You should bear weight as tolerated on the right knee but always protect it by using a walker for the first 2 weeks. You may move your knee as tolerated. You should elevate the extremity as much as possible with the foot higher than the knee and that higher than the hip. Medications: - You should take Tylenol 1000mg every 8 hours as needed for pain. You also have Oxycodone for breakthrough pain. - You may use ice for pain control. - You should resume your home medications. - You will be taking an antibiotic until instructed otherwise, Cephalexin 500mg three times a day Dressings: - Your initial dressings should stay on for at lest 3 days. They may then be removed and covered with a light gauze wrap or bandaids. - You may shower and get the wounds wet after 3 days. Follow-up: 2 weeks Stand Alone Forms: Ron Harry (DSU) Activity:: Activity as Tolerated Equipment/Supplies:: Walker Diet:: As Tolerated Discharge Orders Discharge Orders: Discharge Order (Routine); Ordered 01/11/18 Ordered By: Erasmo Joseph DS: Diagnosis Discharge Diagnosis (1) Infected hardware in right leg: Status: Acute
[2018-01-11] MEDS: fentaNYL 100 MCG/2 ML VIAL IVP ×2 (13:48→14:00)
[2018-01-11] MEDS: oxyCODONE 5 MG TAB PO (14:30)
--- NOTE | 2018-01-12 08:46 | ROE_ITS ---
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 POSTOPERATIVE DIAGNOSES Infected right tibial hardware with sinus tract. SURGERY Resection of sinus tract from the anterior tibia, irrigation and debridement of skin, subcutaneous ti ssue, muscle and bone. Removal of retained hardware from the right tibia. SURGEON Erasmo Joseph M.D. [employer] Timmy Teixeira ESTIMATED BLOOD LOSS 20 cc ANESTHESIA General. COMPLICATIONS None. DISPOSITION The patient was awakened from anesthesia and taken to the PACU in stable condition. SPECIMENS Three culture swabs were taken. The first was of the deep portions of the sinus tract from the anteri or tibia. The second was from the underlying bone and connection to the sinus tract of the anterior tibia. The third was taken from actually within the screw tract where purulence was encountered, which also ended at the level of the skin sinus tract. The sinus tract once this was excised, was also sent to the lab for culture. INDICATIONS FOR PROCEDURE Alisia is a 32-year old, who has had multiple procedures to her right lower extremity. She had fractu re and also had a Josie spatial frame that was placed at one point in time and percutaneous screws w ere placed for fixation. She has been now almost a year out from the last surgery. She has been doing well except for an area which continues to drain and excoriate over the anterior tibia. She also has some chronic low-grade pain. I had seen her once before in the Emergency Department with some appare nt cellulitis over this area. This resolved with a simple course of antibiotics for two weeks. She wa s then scheduled for hardware removal with debridement, and culture of the tissues, but unfortunately , had some other things come up and this was delayed. Given the chronicity and the lack of systemic s ymptoms, we then scheduled this as an outpatient at a later date. I reviewed the pathology with the glenda rothman. Given the symptoms, I am concerned that she had deeper infection due to the retained hardware . My recommendation was to remove the hardware entirely, debride the wounds, and also send for cultur es. I reviewed the risks of this procedure to include bleeding, persistent infection, need for repeat procedures, fracture, damage to nerves and vessels, damage to muscle and tendons, pain, stiffness, w eakness, and blood clot. Despite these risks, she elected to proceed. DESCRIPTION OF PROCEDURE Alisia was greeted in the preoperative holding area. Her identity was confirmed and the correct side was identified and marked. The consent was reviewed with the patient and signed. She was taken back to the Operating Room and placed in the supine position. All bony prominences were padded. A nonsterile tourniquet was placed high up on the right leg. Prophylactic antibiotics in the form of cefazolin were held until after the first cultures were obtained. A timeout was performed fo r safe surgery. The right leg was then prepped with ChloraPrep and draped in a standard fashion. I first started on t he anterior tibia. The sinus tract was easily palpable down to bone. I therefore ellipsed this area a nd excised the sinus tract all the way down to bone in its entirety in a full-thickness piece. This w as then sent to the lab for culture. A swab was then also taken of the deeper fluid seen at the base of this wound. She was somewhat oozy and therefore I did inflate the tourniquet at this time, where i t stayed at 275 mmHg for approximately 40 minutes. After these cultures were sent, the bone was directly visible. There was also the hole at this point seen, which communicated with the distal end of a screw running from medial to lateral. This was debr ided down. The bone appeared healthy in this area. There were no signs of significant bone damage. Fr om this position, we then elevated the tissues in a full thickness pattern from across the tibia over to the second screw, which was in a distal to proximal direction starting on the anterior tibia. The screw head was identified, and using a 7.3-mm screwdriver, I was able to remove the screw with only minimal difficulty. I did have to use the broken screw removal set due to the screw head already bein g stripped out partially. This was able to be removed with minimal difficulty, except for some increa sing torque, as it crossed the other screws, which were in place. This screw was then removed. The sc rew path was curetted. There was no purulent material. The screw path was irrigated. We then turned attention to the screw that was heading from the medial lateral direction. A small inc ision was made overlying the head of the screw in the previous incision spot. Dissection was carried down to through the superficial tissues. Using the 10 from the cannulated 7.3-mm screw system, I then was able to percutaneously find the screw. The tissues then were cut down onto the screw head. The s crew head was identified and any soft tissue debris was removed from the head of the screw. The screw oil transport driver was able to be inserted onto the screwdriver and the screw was able to be removed. As I was re moving the screw from this proximal, medial aspect, purulence was seen exiting the screw path from [facility] distal, lateral aspect. This purulent material was then sent by swab to the lab for culture. The sc rew was removed without difficulty. The screw path was curetted out. Again, the bone appeared to be h ealthy and had no significant soft spots identified. It was also irrigated. I then turned attention to the proximal, lateral screw. The proximal, lateral incision was incised. T he deep tissue was dissected down to the IT band. Percutaneously, I was able to place the cannulated guide into the screw. I then cut down on top of this, and placing the screwdriver into the screw head and removing the screw without significant difficulty. After this was removed, the screw path was o nce again irrigated and debrided with a curette. All the wounds were then thoroughly irrigated. All s amples were sent to the lab culture. The deep tissues were closed with #0-Vicryl. The skin was reappr oximated #2-0 Vicryl and #4-0 Nylon. Dressings in the form of Xeroform, 4x4s, ABD, Kerlix and Gil wra p were applied. Fluoroscopy was used during the case and the leg was also checked prior to leaving [facility] room to make sure there was no instability of the fracture site, no refracture, and no retained sotero dware. She was transferred back to the PACU in stable condition. At the end of the case, all counts w ere correct. CC: Madhu Lyle M.D. Trent Morrison M.D.
== END 2018-01-11 15:26 | disposition home or self-care (01) ==
LOC: SUR 13:33
PROVIDERS: PCP General Practice; Visit Provider Student in an Organized Health Care Education/Training Program
PROC: 0JBN0ZZ Excision of Right Lower Leg Subcutaneous Tissue and Fascia, Open Approach (ICD-10-PCS; CPT 27618; principal; 2018-01-11 10:30)
DX: T84.7XXA Infection and inflammatory reaction due to other internal orthopedic prosthetic devices, implants and grafts, initial encounter (principal); T81.83XA Persistent postprocedural fistula, initial encounter; M89.8X6 Other specified disorders of bone, lower leg; B95.61 Methicillin susceptible Staphylococcus aureus infection as the cause of diseases classified elsewhere
CPT/HCPCS: 27618; 20680; 36415; 71275; 76000; 87077; 93005; 96361; 96374; 99285; 73560; 83735; 84484; 85025; 85610; 85730; 87070; 87075; 87186; 87205; 93010; J0690; J1100; J2405; J3010; J3490

== ENCOUNTER 2018-01-11 22:05 | Emergency (ER) | payer MEDICARE, MEDICAID, SELFPAY ==
[2018-01-11 22:05] VITALS: BP 113/69; PULSE 67; RESP 18; TEMP 36.7; O2SAT 97
[2018-01-11 22:08] VITALS: RESP 18
--- NOTE | 2018-01-11 22:09 | W.ED.GENAD ---
Discharge Plan Disposition Patient Disposition: HOME Condition: Stable Discharge Details Chief Complaint: Chest Pain Clinical Impression: Chest pain Reason For Visit: FRED Primary Care Provider: Madhu Lyle ED Provider: Arjun Pablo Home Meds and New Rx's Prescriptions: Continue omeprazole 20 MG capsule,delayed release(DR/EC) 20 mg PO DAILY RF: 0 albuterol sulfate [ProAir HFA] 8.5 GM HFA aerosol inhaler 2 puff Inhalation Q4H PRN RF: 0 topiramate [Topamax] 50 MG tablet 50 mg PO BID RF: 0 folic acid 1 MG tablet 4 mg PO DAILY Qty: 30 RF: 4 ferrous sulfate 324 MG tablet,delayed release (DR/EC) 324 mg PO DAILY Qty: 30 RF: 4 trazodone 100 MG tablet 400 mg PO HS RF: 0 ondansetron [Zofran ODT] 4 MG tablet,disintegrating 4 mg PO Q8H Qty: 12 RF: 0 prochlorperazine maleate [Compazine] 10 MG tablet 10 mg PO Q8H PRN PRN (Reason: Nausea / Vomiting) Qty: 20 RF: 0 fluticasone [Flovent HFA] 110 mcg/actuation Hfa Aerosol Inhaler 1 puff INHALATION DAILY PRNRF: 0 acetaminophen 500 mg capsule 1,000 mg PO Q8H PRN (Reason: pain) Qty: 90 RF: 0 oxycodone 5 mg tablet 5 mg PO Q4H Qty: 18 RF: 0 cephalexin 500 mg capsule 500 mg PO TID Qty: 42 RF: 1 prazosin 1 MG capsule 4 mg PO HS RF: 0 buspirone 15 MG tablet 30 mg PO DAILY RF: 0 duloxetine [Cymbalta] 60 MG capsule,delayed release(DR/EC) 60 mg PO BID RF: 0 eszopiclone [Lunesta] 1 MG tablet 5 mg PO HS RF: 0 Discharge Instructions Instructions: Chest Pain (ED) Additional Instructions: follow up with your primary care provider within 1 week if you have high fevers, severe worsening of pain or difficulty breathing return to the emergency department Medical Decision Making 32 yo female comes in with cough and anterior chest pain starting about 4 hours ago. Was d/c'd today after having surgery to remove hardware from the right knee. She denies pain with exertion, heart score is 0, will obtain ecg and troponin. Maninder score is moderate given recent surgery,will obtain CTA to eval for PE. No tearing back pain so doubt dissection. Pt's labs show a wbc of 16 otherwise unremarkable, remains satble, awaiting CT. CT shows no acute findings, has atelectasis likely residual from her surgeyr. Suspect chest wall pain given pain with coughing, advised f/u with pcp and return precautions given Imaging Data Radiologic Study: Radiologist's impression: IMPRESSION: Small amount of dependent atelectasis in the lung bases. Otherwise normal study. Lab Data Lab results reviewed: Yes I reviewed the patient's lab results. ECG Data Attestation: I personally reviewed and interpreted this ECG (s) as follows: Prior ECG tracings: available for review Interpretation: sinus rhythm, rate of 60, pr 138, no acute st t wave changes HPI General Mode of arrival: EMS. Date/Time Provider Initiated Documentation: 01/11/18 22:24. Limitations to Documentation: no limitations. Information obtained by: patient. History of Present Illness 32 year old F presents to the emergency department with the chief complaint of chest pain, described as moderate, with intensity rated at 5. and is localized to the chest. Patient reports no radiation. Patient started experiencing this hour(s) (4) and it has been intermittent. No relieving factors improve symptom(s), Other factors that worsen symptoms (coughing) . Patient did receive the following treatments prior to arrival, none Related Data Home Medications Medication Instructions Recorded Confirmed buspirone 30 mg PO DAILY 08/22/17 01/11/18 duloxetine [Cymbalta] 60 mg PO BID 08/22/17 01/11/18 eszopiclone [Lunesta] 5 mg PO HS 08/22/17 01/11/18 prazosin 4 mg PO HS 08/22/17 01/11/18 albuterol sulfate [ProAir HFA] 2 puff INHALATION Q4H PRN inhaler 09/25/17 01/11/18 ferrous sulfate 324 mg PO DAILY #30 tab 09/25/17 01/11/18 folic acid 4 mg PO DAILY #30 tab 09/25/17 01/11/18 omeprazole 20 mg PO DAILY tab-cap 09/25/17 01/11/18 topiramate [Topamax] 50 mg PO BID tab-cap 09/25/17 01/11/18 trazodone 400 mg PO HS tab-cap 09/26/17 01/11/18 ondansetron [Zofran ODT] 4 mg PO Q8H #12 tab.rapdis 09/27/17 01/11/18 prochlorperazine maleate 10 mg PO Q8H PRN PRN #20 tab 10/02/17 01/11/18 [Compazine] fluticasone [Flovent HFA] 1 puff INHALATION DAILY PRN 01/03/18 01/11/18 acetaminophen 1,000 mg PO Q8H PRN #90 cap 01/11/18 01/11/18 cephalexin 500 mg PO TID #42 cap 01/11/18 01/11/18 oxycodone 5 mg PO Q4H #18 tab 01/11/18 01/11/18 Previous Rx's Medication Instructions Recorded ferrous sulfate 324 mg PO DAILY #30 tab 09/25/17 folic acid 4 mg PO DAILY #30 tab 09/25/17 ondansetron [Zofran ODT] 4 mg PO Q8H #12 tab.rapdis 09/27/17 prochlorperazine maleate 10 mg PO Q8H PRN PRN #20 tab 10/02/17 [Compazine] acetaminophen 1,000 mg PO Q8H PRN #90 cap 01/11/18 cephalexin 500 mg PO TID #42 cap 01/11/18 oxycodone 5 mg PO Q4H #18 tab 01/11/18 Allergies Allergy/AdvReac Type Severity Reaction Status Date / Time ibuprofen Allergy Severe Anaphylaxsi Unverified 01/11/18 22:07 s salicylates Allergy Severe Anaphylaxsi Unverified 01/11/18 22:07 s bee Allergy Severe Anaphylaxsi Uncoded 01/11/18 22:07 s General Stated Complaint: Chest Pain NAVI: 3 Review of Systems Review of Systems All systems reviewed & are unremarkable except as noted in HPI and below Constitutional Denies chills, Denies fever(s) and Denies weakness ENT Denies change in voice Cardiovascular Denies dyspnea Respiratory Denies dyspnea Gastrointestinal Denies nausea and Denies vomiting Genitourinary Denies dysuria Musculoskeletal Denies joint swelling Integumentary/Breasts Denies rash Neurologic Denies weakness Allergic/Immunologic Denies urticaria PFSH Gastritis (Acute) Asthma Depression Fibromyalgia GERD (gastroesophageal reflux disease) Obesity (BMI 30-39.9) PCOS (polycystic ovarian syndrome) Seizures Family History Mother No problems noted. Father Diabetes Heart disease bilateral tubal ligation H/O colonoscopy (Chronic 10/17/17) History of esophagogastroduodenoscopy (EGD) (Chronic 10/17/17) Cholecystectomy (~2002) Gastric Bypass (02/13/13) Replacement of total knee joint (11/29/16) Social History Smoking/Tobacco Use Status: Never alcohol intake: never Exam Const General: no acute distress Orientation: alert HENMT Head: normal to inspection Ears: external ears normal General nose exam: external nose normal Mouth: moist mucous membranes Eyes General: appearance normal, both eyes and all related structures Neck Neck: normal visual inspection Resp Effort & Inspection: normal respiratory effort and able to speak in complete sentences Cardio Rate: regular rate Skin General skin exam: no rashes or lesions noted Neuro General: alert and oriented x3 Extrem General: normal to inspection Psych Mental Status: mental status grossly normal Course Vital Signs Temperature 36.7 C 01/11/18 22:05 Pulse 67 01/11/18 22:05 Respiratory Rate 18 01/11/18 22:05 Blood Pressure 113/69 01/11/18 22:05 Pulse Oximetry 97 01/11/18 22:05 Temperature 36.7 C 01/11/18 22:05 Temperature Source Temporal Artery Scan 01/11/18 22:05 Pulse 67 01/11/18 22:05 Respiratory Rate 18 01/11/18 22:05 Respiratory Effort Non-Labored 01/11/18 22:05 Blood Pressure 113/69 01/11/18 22:05 Pulse Oximetry 97 01/11/18 22:05 Oxygen Delivery Method Room Air 01/11/18 22:05 Oxygen Flow Rate 0 01/11/18 22:05 Pain Level 6 01/11/18 22:05
[2018-01-11] MEDS: fentaNYL 100 MCG/2 ML VIAL IVP (22:30)
[2018-01-11 22:32] LABS: Abs Immature Grans 0.04 k/cumm (0.0-0.09); Basophils % 0.1; HCT 31.8 % (36.0-46.0); HGB 10.3 g/dL (12.0-15.5); Immature Grans % 0.2; Mean Corp. HGB Concentration 32.4 g/dL (32.0-36.0); Mean Corpuscular Hemoglobin 27.7 pg (27.0-33.0); Mean Corpuscular Volume 85.5 fL (80-95); Mean Platelet Volume 11.2 fL (8.0-11.0); Monocytes % 4.5; Neutrophils % 89.2; Platelet Count 352 x1000/uL (130-400); RBC 3.72 m/cumm (4.00-5.20); White Blood Cell Count 16.13 k/cumm (4.4-10.8)
[2018-01-11 22:33] LABS: Absolute Basophil Count 0.02 k/cumm (0.0-0.2); Absolute Lymphocyte Count 0.97 k/cumm (1.2-3.4); Absolute Monocyte Count 0.73 k/cumm (0.11-0.7); Absolute Neutrophil Count 14.39 k/cumm (1.2-6.7)
[2018-01-11] MEDS: Omnipaque 350 MG/ML 100 ML BTL IJ (22:44)
--- NOTE | 2018-01-11 22:45 | DI.CT_ITS ---
SYMPTOMS/DIAGNOSIS: CHEST PAIN S/P SURGERY CHEST CTA: CT angiography was performed with multi slice acquisition and multi planar and 3D reconstruction. CT angiography of the chest was performed with intravenous infusion of 100 cc of Omnipaque 350. Images obtained through the upper abdomen are unremarkable. There is no evidence of pulmonary embolic disease. There is no evidence of thoracic aortic dissection or aneurysm. No mediastinal or hilar adenopathy seen. Tracheobronchial tree appears intact. No pleural effusion or pulmonary consolidation. CONCLUSION: Normal CTA chest.
[2018-01-11] MEDS: Normal Saline 1,000 ML 1000 ML IV (22:46)
[2018-01-11 22:47] LABS: Magnesium 1.8 mg/dL (1.8-2.4)
[2018-01-11 22:49] LABS: Troponin I < 0.02 ng/mL (0.00-0.06)
--- NOTE | 2018-01-11 23:08 | DI.VRAD_ITS ---
EXAM: CT Angiography Chest With Intravenous Contrast EXAM DATE/TIME: 01/11/2018 10:03 PM CLINICAL HISTORY: 32 years old, female; Pain; Chest pain; Type not specified; Patient HX: S/P screws removed in right leg, for infected screws in right leg. Surgery was today, new onset chest pain S/P surgery. TECHNIQUE: Axial computed tomographic angiography images of the chest with intravenous contrast using CT angiography protocol. All CT scans at this facility use at least one of these dose optimization techniques: automated exposure control; mA and/or kV adjustment per patient size (includes targeted exams where dose is matched to clinical indication); or iterative reconstruction. Coronal and sagittal reformatted images were created and reviewed. MIP reconstructed images were created and reviewed. CONTRAST: 100 ml of omnipaque 350 administered intravenously. COMPARISON: Vascular^CTA CAP (Adult) 10/02/2017 9:44 PM FINDINGS: Pulmonary arteries: Unremarkable. No obvious pulmonary emboli. Aorta: Unremarkable. No aortic aneurysm. No aortic dissection. Lungs: Small amount of fat atelectasis in the lung bases. Pleural space: Unremarkable. No pneumothorax. No pleural effusion. Heart: Unremarkable. No pericardial effusion. No obvious heart strain. Lymph nodes: Unremarkable. No enlarged lymph nodes. Bones/joints: Unremarkable. No acute fracture. Soft tissues: Unremarkable. IMPRESSION: Small amount of dependent atelectasis in the lung bases. Otherwise normal study. Dictated and Authenticated by: Wilian Echeverria MD. Ordering:KANU HART MD
[2018-01-11 23:11] LABS: PTT Activated 23.4 sec (21.0-31.4); Prothrombin Time 9.4 sec (9.3-10.8)
[2018-01-11 23:25] VITALS: BP 113/69; PULSE 67; RESP 18; TEMP 36.7; O2SAT 97
== END 2018-01-11 23:31 | disposition home or self-care (01) ==
PROVIDERS: Emergency Provider Emergency Medicine; PCP General Practice
DX: R07.9 Chest pain, unspecified (principal); G89.18 Other acute postprocedural pain; Y83.8 Other surgical procedures as the cause of abnormal reaction of the patient, or of later complication, without mention of misadventure at the time of the procedure; R05 Cough
CPT/HCPCS: 36415; 71275; 93005; 96361; 96374; 99285; 83735; 84484; 85025; 85610; 85730; 93010; J3010; J3490

== ENCOUNTER → 2018-01-15 13:36 | Outpatient (BNVA) | payer MEDICARE, MEDICAID, SELFPAY | PROVIDERS: PCP General Practice; Referring Provider General Practice; Visit Provider Student in an Organized Health Care Education/Training Program | DX: T84.7XXD Infection and inflammatory reaction due to other internal orthopedic prosthetic devices, implants and grafts, subsequent encounter (principal) ==

== ENCOUNTER 2018-01-18 16:25 | Emergency (ER) | payer MEDICARE, MEDICAID, SELFPAY ==
[2018-01-18 16:30] VITALS: BP 107/63; PULSE 72; RESP 14; TEMP 36.8; O2SAT 98
[2018-01-18 16:38] VITALS: RESP 14
--- NOTE | 2018-01-18 16:43 | W.ED.GENAD ---
Discharge Plan Disposition Patient Disposition: HOME Condition: Stable Discharge Details Chief Complaint: SOB Clinical Impression: Chest wall pain Primary Care Provider: Madhu Lyle ED Provider: Arjun Pablo Home Meds and New Rx's Prescriptions: New prednisone 20 mg tablet 60 mg PO DAILY 5 Days Qty: 15 RF: 0 Continue omeprazole 20 MG capsule,delayed release(DR/EC) 20 mg PO DAILY RF: 0 albuterol sulfate [ProAir HFA] 8.5 GM HFA aerosol inhaler 2 puff Inhalation Q4H PRN RF: 0 topiramate [Topamax] 50 MG tablet 50 mg PO BID RF: 0 folic acid 1 MG tablet 4 mg PO DAILY Qty: 30 RF: 4 ferrous sulfate 324 MG tablet,delayed release (DR/EC) 324 mg PO DAILY Qty: 30 RF: 4 trazodone 100 MG tablet 400 mg PO HS RF: 0 ondansetron [Zofran ODT] 4 MG tablet,disintegrating 4 mg PO Q8H Qty: 12 RF: 0 prochlorperazine maleate [Compazine] 10 MG tablet 10 mg PO Q8H PRN PRN (Reason: Nausea / Vomiting) Qty: 20 RF: 0 fluticasone [Flovent HFA] 110 mcg/actuation Hfa Aerosol Inhaler 1 puff INHALATION DAILY PRNRF: 0 acetaminophen 500 mg capsule 1,000 mg PO Q8H PRN (Reason: pain) Qty: 90 RF: 0 oxycodone 5 mg tablet 5 mg PO Q4H Qty: 18 RF: 0 cephalexin 500 mg capsule 500 mg PO TID Qty: 42 RF: 1 prazosin 1 MG capsule 4 mg PO HS RF: 0 buspirone 15 MG tablet 30 mg PO DAILY RF: 0 duloxetine [Cymbalta] 60 MG capsule,delayed release(DR/EC) 60 mg PO BID RF: 0 eszopiclone [Lunesta] 1 MG tablet 5 mg PO HS RF: 0 Discharge Instructions Instructions: Chest Wall Pain (ED) Additional Instructions: Follow up with your primary care provider next week If you have high fevers or severe weakness return to the emergency department Medical Decision Making 32 yo female comes in with continues chest pain and upper back pain, was seen last week with negative workup including CTA. States she called her pcp today because symptoms continue and was referred here. Denies any pain with exertion and actually feels better with some exertion so doubt acs, ekg unchanged. Heart score is 1, will send troponin. Wells low and perc negative, normal vascular exam, no tearing back pain and had negative CT last week so doubt PE or dissection at this time. Her pain is reproducible so could be chest wall pain vs fibromyalgia. She has clear lung sounds, no fevers or cough so doubt entities such as ptx or pna and do not feel xray indicated labs unremarkable, no acute findings, she is now stating she has had a dry cough. No fevers and clear lungs so doubt pna and had negative CT last week. Will start her on prednisone to see if this helps and the cough could be causing her pain. Advised f/u with pcp and return precautions given Differential Diagnosis chest wall pain, nstemi, fibromyalgia Lab Data Lab results reviewed: Yes I reviewed the patient's lab results. ECG Data Attestation: I personally reviewed and interpreted this ECG (s) as follows: Prior ECG tracings: available for review Interpretation: sinus rhythm, rate of 75, pr 124, no acute st t wave changes HPI General Mode of arrival: ambulatory. Date/Time Provider Initiated Documentation: 01/18/18 16:26. Limitations to Documentation: no limitations. Information obtained by: patient. History of Present Illness 32 year old F presents to the emergency department with the chief complaint of chest pain, described as moderate, with intensity rated at 6. Quality is described as aching, and is localized to the chest and back. Patient reports no radiation. Patient started experiencing this week(s) (1) and it has been constant. Movement improves symptom(s), Patient notes no other symptoms.. Patient did receive the following treatments prior to arrival, none Related Data Home Medications Medication Instructions Recorded Confirmed buspirone 30 mg PO DAILY 08/22/17 01/11/18 duloxetine [Cymbalta] 60 mg PO BID 08/22/17 01/11/18 eszopiclone [Lunesta] 5 mg PO HS 08/22/17 01/11/18 prazosin 4 mg PO HS 08/22/17 01/11/18 albuterol sulfate [ProAir HFA] 2 puff INHALATION Q4H PRN inhaler 09/25/17 01/11/18 ferrous sulfate 324 mg PO DAILY #30 tab 09/25/17 01/11/18 folic acid 4 mg PO DAILY #30 tab 09/25/17 01/11/18 omeprazole 20 mg PO DAILY tab-cap 09/25/17 01/11/18 topiramate [Topamax] 50 mg PO BID tab-cap 09/25/17 01/11/18 trazodone 400 mg PO HS tab-cap 09/26/17 01/11/18 ondansetron [Zofran ODT] 4 mg PO Q8H #12 tab.rapdis 09/27/17 01/11/18 prochlorperazine maleate 10 mg PO Q8H PRN PRN #20 tab 10/02/17 01/11/18 [Compazine] fluticasone [Flovent HFA] 1 puff INHALATION DAILY PRN 01/03/18 01/11/18 acetaminophen 1,000 mg PO Q8H PRN #90 cap 01/11/18 01/11/18 cephalexin 500 mg PO TID #42 cap 01/11/18 01/11/18 oxycodone 5 mg PO Q4H #18 tab 01/11/18 01/11/18 prednisone 60 mg PO DAILY 5 Days #15 tab 01/18/18 Previous Rx's Medication Instructions Recorded ferrous sulfate 324 mg PO DAILY #30 tab 09/25/17 folic acid 4 mg PO DAILY #30 tab 09/25/17 ondansetron [Zofran ODT] 4 mg PO Q8H #12 tab.rapdis 09/27/17 prochlorperazine maleate 10 mg PO Q8H PRN PRN #20 tab 10/02/17 [Compazine] acetaminophen 1,000 mg PO Q8H PRN #90 cap 01/11/18 cephalexin 500 mg PO TID #42 cap 01/11/18 oxycodone 5 mg PO Q4H #18 tab 01/11/18 prednisone 60 mg PO DAILY 5 Days #15 tab 01/18/18 Allergies Allergy/AdvReac Type Severity Reaction Status Date / Time ibuprofen Allergy Severe Anaphylaxsi Unverified 01/11/18 22:07 s salicylates Allergy Severe Anaphylaxsi Unverified 01/11/18 22:07 s bee Allergy Severe Anaphylaxsi Uncoded 01/11/18 22:07 s General Stated Complaint: SOB NAVI: 3 Review of Systems Review of Systems All systems reviewed & are unremarkable except as noted in HPI and below Constitutional Denies chills, Denies fever(s) and Denies weakness Gastrointestinal Denies vomiting Genitourinary Denies dysuria Integumentary/Breasts Denies rash Neurologic Denies weakness Psychiatric Denies depression PFSH Gastritis (Acute) Asthma Depression Fibromyalgia GERD (gastroesophageal reflux disease) Obesity (BMI 30-39.9) PCOS (polycystic ovarian syndrome) Seizures Family History Mother No problems noted. Father Diabetes Heart disease Medical History Gastritis (Acute) Asthma Depression Fibromyalgia GERD (gastroesophageal reflux disease) Obesity (BMI 30-39.9) PCOS (polycystic ovarian syndrome) Seizures Social History Smoking/Tobacco Use Status: Never alcohol intake: never Surgical History bilateral tubal ligation H/O colonoscopy (Chronic 10/17/17) History of esophagogastroduodenoscopy (EGD) (Chronic 10/17/17) Cholecystectomy (~2002) Gastric Bypass (02/13/13) Replacement of total knee joint (11/29/16) Social History Smoking/Tobacco Use Status: Never alcohol intake: never Exam Const General: no acute distress Orientation: alert [facility] Head: normal to inspection Ears: external ears normal General nose exam: external nose normal Mouth: moist mucous membranes Eyes General: appearance normal, both eyes and all related structures Neck Neck: normal visual inspection Resp Effort & Inspection: normal respiratory effort and able to speak in complete sentences Cardio Rate: regular rate Skin General skin exam: no rashes or lesions noted Neuro General: alert and oriented x3 Extrem General: normal to inspection Psych Mental Status: mental status grossly normal Course Vital Signs Temperature 36.8 C 01/18/18 16:30 Pulse 72 01/18/18 16:30 Respiratory Rate 14 01/18/18 16:30 Blood Pressure 107/63 01/18/18 16:30 Pulse Oximetry 98 01/18/18 16:30 Temperature 36.8 C 01/18/18 16:30 Temperature Source Skin 01/18/18 16:30 Pulse 72 01/18/18 16:30 Respiratory Rate 14 01/18/18 16:38 Respiratory Effort 01/18/18 16:38 Respiratory Depth Normal 01/18/18 16:38 Respiratory Pattern Normal 01/18/18 16:38 Blood Pressure 107/63 01/18/18 16:30 Blood Pressure Position Sitting 01/18/18 16:30 Pulse Oximetry 98 01/18/18 16:30 Oxygen Delivery Method Room Air 01/18/18 16:30 Oxygen Flow Rate 0 01/18/18 16:30 Pain Level 7 01/18/18 16:30
[2018-01-18] MEDS: Acetaminophen 500 MG TAB 1000 MG PO (16:48)
[2018-01-18 16:58] LABS: Abs Immature Grans 0.02 k/cumm (0.0-0.09); Absolute Basophil Count 0.03 k/cumm (0.0-0.2); Absolute Eosinophil Count 0.18 k/cumm (0.0-0.7); Absolute Lymphocyte Count 2.59 k/cumm (1.2-3.4); Absolute Monocyte Count 0.46 k/cumm (0.11-0.7); Absolute Neutrophil Count 4.73 k/cumm (1.2-6.7); Basophils % 0.4; Eosinophils % 2.2; HCT 29.9 % (36.0-46.0); HGB 9.5 g/dL (12.0-15.5); Immature Grans % 0.2; Lymphocytes % 32.3; Mean Corp. HGB Concentration 31.8 g/dL (32.0-36.0); Mean Corpuscular Hemoglobin 26.9 pg (27.0-33.0); Mean Corpuscular Volume 84.7 fL (80-95); Monocytes % 5.7; Neutrophils % 59.2; Platelet Count 372 x1000/uL (130-400); RBC 3.53 m/cumm (4.00-5.20); RBC Distribution Width 13.9 % (11.7-14.6); White Blood Cell Count 8.01 k/cumm (4.4-10.8)
[2018-01-18 17:36] LABS: Anion Gap 6.4 mmol/L (3-11); BUN 18 mg/dL (7-18); CO2 29.6 mmol/L (21.0-32.0); CREATININE 0.95 mg/dL (0.55-1.02); Calcium 8.3 mg/dL (8.5-10.1); Chloride 102 mmol/L (98-107); Glucose 89 mg/dL (70-100); Sodium 138 mmol/L (136-145)
[2018-01-18 17:37] LABS: Troponin I < 0.02 ng/mL (0.00-0.06)
[2018-01-18 17:52] VITALS: BP 115/62; PULSE 98; RESP 16; TEMP 36; O2SAT 94
[2018-01-18 18:16] LABS: Anisocytosis 1+; Diff Comment Agrees w/ Instrument; Hypochromasia 2+
[2018-01-18 18:17] LABS: Poikilocytes 1+
== END 2018-01-18 17:50 | disposition home or self-care (01) ==
LOC: ER 17:57
PROVIDERS: Emergency Provider Emergency Medicine; PCP General Practice
DX: R07.89 Other chest pain (principal); M54.6 Pain in thoracic spine; R05 Cough
CPT/HCPCS: 36415; 80048; 93005; 99284; 84484; 85025; 93010

== ENCOUNTER 2018-01-24 10:41 | Outpatient (CLI) | payer MEDICARE, MEDICAID, SELFPAY ==
--- NOTE | 2018-01-24 10:35 | DI.RAD_ITS ---
SYMPTOMS/DIAGNOSIS: F/U HARDWARE REMOVAL RIGHT TIB/FIB: Two views. Comparison 01/11/18 and 08/22/17. The patient is status post removal of screws from the proximal right tibia. No acute fracture or dislocation is seen. Old fracture deformities are seen in the proximal tibia and the distal fibula. Mild to moderate degenerative changes are seen in the knee. The soft tissues are unremarkable. IMPRESSION: No acute abnormality. Old right tibial and fibular fractures.
--- NOTE | 2018-01-26 11:00 | PDOC.ANES ---
Date of service: 01/26/18 Time of Service: 11:00 Anesthesia Note Report Anesthesia Note: Called to check on patient post ankle hardware removal. Later that evening she presented to the ED with complaints of chest pain. A CT scan was performed which showed a small amount of dependent atelectasis in the lung bases, but was an otherwise normal study. She also had an EKG and troponin done, which were also negative. She later returned to the ED on 01/18/18 with continued complaints of cough and was discharged home with oral steroid prescription. Discussed with patient that findings of her chest CT (slight atelectasis) are not abnormal after a general anesthetic. She has no questions for me at this time.
--- NOTE | 2018-01-26 11:04 | ANES_ITS ---
Date of service: 01/26/18 Time of Service: 11:00 Anesthesia Note Report Anesthesia Note: Called to check on patient post ankle hardware removal. Later that evening she presented to the ED with complaints of chest pain. A CT scan was performed which showed a small amount of dependent atelectasis in the lung bases, but was an otherwise normal study. She also had an EKG and troponin done, which were also negative. She later returned to the ED on 01/18/18 with con tinued complaints of cough and was discharged home with oral steroid prescription. Discussed with patient that findings of her chest CT (slight atelectasis) are not abnormal after a general anesthetic. She has no questions for me at this time.
== END 2018-01-24 11:01 ==
PROVIDERS: Physician Assistant; PCP General Practice; Referring Provider General Practice; Visit Provider Student in an Organized Health Care Education/Training Program
DX: T84.7XXD Infection and inflammatory reaction due to other internal orthopedic prosthetic devices, implants and grafts, subsequent encounter (principal); Z47.89 Encounter for other orthopedic aftercare
CPT/HCPCS: 36415; 73590; 86140

== ENCOUNTER 2018-02-09 14:01 | Outpatient (CLI) | payer MEDICARE, MEDICAID, SELFPAY ==
[2018-02-09 15:00] LABS: TSH (W/Ref FT4) 1.31 uIU/mL (0.358-3.74)
[2018-02-09 15:17] LABS: HCG Quant, Pregnancy < 1 mIU/mL (1-3)
[2018-02-12 08:44] LABS: FSH 4.6 mIU/ml; Prolactin 23.6 ng/ml
== END 2018-02-09 14:21 ==
PROVIDERS: PCP General Practice; Visit Provider Nurse Practitioner Women's Health
DX: N92.6 Irregular menstruation, unspecified (principal); N94.89 Other specified conditions associated with female genital organs and menstrual cycle
CPT/HCPCS: 36415; 83001; 84146; 84443; 84702

== ENCOUNTER 2018-02-15 00:06 | Emergency (ER) | payer MEDICARE, MEDICAID, SELFPAY ==
[2018-02-15 00:11] VITALS: BP 116/66; PULSE 86; RESP 16; TEMP 36.4; O2SAT 96
--- NOTE | 2018-02-15 00:17 | ED.GENADUL_ITS ---
Discharge Plan Disposition Patient Disposition: HOME Condition: Good Discharge Details Chief Complaint: EarProblem Clinical Impression: Left ear pain Primary Care Provider: Madhu Lyle ED Provider: Nadeem Wallace Home Meds and New Rx's Prescriptions: New diphenhydramine HCl [Benadryl] 25 mg capsule 25 mg PO Q6H PRN (Reason: allergy symptoms) Qty: 14 RF: 0 No Action omeprazole 20 MG capsule,delayed release(DR/EC) 20 mg PO DAILY RF: 0 ProAir HFA 8.5 GM HFA aerosol inhaler 2 puff Inhalation Q4H PRN RF: 0 topiramate [Topamax] 50 MG tablet 50 mg PO BID RF: 0 folic acid 1 MG tablet 4 mg PO DAILY Qty: 30 RF: 4 ferrous sulfate 324 MG tablet,delayed release (DR/EC) 324 mg PO DAILY Qty: 30 RF: 4 trazodone 100 MG tablet 400 mg PO HS RF: 0 cephalexin 500 mg capsule 500 mg PO TID Qty: 42 RF: 1 Flovent HFA 110 mcg/actuation Hfa Aerosol Inhaler 1 puff INHALATION DAILY PRNRF: 0 acetaminophen 500 mg capsule 1,000 mg PO Q8H PRN (Reason: pain) Qty: 90 RF: 0 prazosin 1 MG capsule 4 mg PO HS RF: 0 duloxetine [Cymbalta] 60 MG capsule,delayed release(DR/EC) 60 mg PO BID RF: 0 eszopiclone [Lunesta] 1 MG tablet 5 mg PO HS RF: 0 Discharge Instructions Instructions: Earache (ED) Additional Instructions: Please continue taking your home Keflex, Tylenol, and the prescribed Benadryl for treatment of your ear pain. If you notice any worsening of your symptoms, or any new symptoms such as discharge from your ear, vomiting, diarrhea, fever, chills, shortness of breath, chest pain, numbness, weakness, or fainting , please return immediately to the emergency department for reevaluation. Please follow up with your primary care provider as soon as possible for reassessment and reevaluation. As always, it was a pleasure participating in your medical care today. Referrals: Madhu Lyle MD [Primary Care Provider] - Medical Decision Making This is a 32-year-old female who presents today for evaluation of sudden onset left ear pain. Physical exam demonstrates a small amount of serous fluid behind the TM, never no evidence of purulent infection, erythema, neck stiffness, neck pain, fever or chills. Signs and symptoms are consistent with benign serous fluid behind the TM. She is on chronic Keflex for her recent hardware removal from her right knee. With no clear clinical evidence of infection, I feel the fluid is the cause of her symptomatology. With no other concerning red flag on exam I feel she can be safely discharged home with close PCP follow-up. We will give him first dose of Benadryl here for drainage of the serous fluid. Recommend continued Tylenol use at home for control of the pain. We discussed red flags which return. I have extensively reviewed the treatment plan and discharge instructions with the patient. I have addressed all patient concerns at this time. The patient was made aware of what symptoms to monitor for that would warrant a return to the emergency department. Discussed the plan with the patient, they demonstrate verbal understanding and agreement with our assessment and plan at this time. HPI General Date/Time Provider Initiated Documentation: 02/15/18 00:09 . HPI Narrative: This is a 32-year-old female with a past medical history of PTSD, seizures, fibromyalgia, who presents today for evaluation of left ear pain that began 20 minutes prior to her night. She denies area. She describes the pain as sharp. She denies any discharge. She denies any symptoms of significant congestion, fever, chills, sore throat, chest pain, shortness of breath, numbness, tingling, weakness, vision changes or headache. She has no other complaints at this time. She denies any neck pain or neck stiffness. She denies any difficulty swallowing. Of note the patient has been on chronic Keflex for the last 1-2 weeks for infection prophylaxis after she had hardware taken out of her right knee. She has been taking these as directed. Patient denies any pertinent family history, IV or illicit drug use. Related Data Home Medications Medication Instructions Recorded Confirmed duloxetine [Cymbalta] 60 mg PO BID 08/22/17 02/15/18 eszopiclone [Lunesta] 5 mg PO HS 08/22/17 02/15/18 prazosin 4 mg PO HS 08/22/17 02/15/18 ProAir HFA 2 puff INHALATION Q4H PRN inhaler 09/25/17 02/15/18 ferrous sulfate 324 mg PO DAILY #30 tab 09/25/17 02/15/18 folic acid 4 mg PO DAILY #30 tab 09/25/17 02/15/18 omeprazole 20 mg PO DAILY tab-cap 09/25/17 02/15/18 topiramate [Topamax] 50 mg PO BID tab-cap 09/25/17 02/15/18 trazodone 400 mg PO HS tab-cap 09/26/17 02/15/18 Flovent HFA 1 puff INHALATION DAILY PRN 01/03/18 02/15/18 acetaminophen 1,000 mg PO Q8H PRN #90 cap 01/11/18 02/15/18 cephalexin 500 mg capsule 500 mg PO TID #42 cap 01/25/18 02/15/18 diphenhydramine HCl [Benadryl] 25 mg PO Q6H PRN #14 cap 02/15/18 Previous Rx's Medication Instructions Recorded ferrous sulfate 324 mg PO DAILY #30 tab 09/25/17 folic acid 4 mg PO DAILY #30 tab 09/25/17 acetaminophen 1,000 mg PO Q8H PRN #90 cap 01/11/18 cephalexin 500 mg capsule 500 mg PO TID #42 cap 01/25/18 diphenhydramine HCl [Benadryl] 25 mg PO Q6H PRN #14 cap 02/15/18 Allergies Allergy/AdvReac Type Severity Reaction Status Date / Time ibuprofen Allergy Severe Anaphylaxsi Unverified 02/15/18 00:10 s salicylates Allergy Severe Anaphylaxsi Unverified 02/15/18 00:10 s bee Allergy Severe Anaphylaxsi Uncoded 02/15/18 00:10 s General Stated Complaint: EarProblem NAVI: 4 Review of Systems Review of Systems All systems reviewed & are unremarkable except as noted in HPI and below PFSH Social History Smoking/Tobacco Use Status: Never alcohol intake: never Female Reproductive History Menstrual control method: none History History 2 Para 1 Hx # Term Pregnancies Multiple births Hx # Pregnancies Ectopic pregnancies AB induced Hx Number of Living Children AB spontaneous Exam Narrative Exam Narrative: 1.Const: Well-nourished, Well-developed, appearing stated age 2.Eyes: PERRL, no conjunctival injection, and symmetrical lids. 3.ENT: Atraumatic external nose and ears. Moist MM. Neck: Symmetric, trachea midline, No thyromegaly. Right tympanic membrane demonstrates no evidence of effusion, serous fluid, erythema, or abnormality. Tympanic membrane is kahn and pearly. Left tympanic membrane demonstrates minimal amount of fluid in the base of her left TM. It is serous in consistency. No evidence of purulent discharge. No bulging of the TM. No significant erythema. No evidence of significant posterior oropharyngeal erythema, or tonsillar exudates. Patient demonstrates good movement of cervical neck. There is no nuchal rigidity, no nuchal tenderness. Patient is able to flex the neck without any difficulty or significant pain. Negative Kernig's and Brudzinski sign. 4.CVS: +S1/S2, No murmurs or gallops. Peripheral pulses 2+ and equal in all extremities. Brisk capillary refill in all extremities. 5.RESP: Unlabored respiratory effort. Clear to auscultation bilaterally. No wheezes rales or rhonchi 6.GI: Soft, Nontender/Nondistended, No hepatosplenomegaly. No guarding or rebound. 7.MSK: Normocephalic/Atraumatic, Extremities w/o deformity or ttp No cyanosis or clubbing, Normal movement of all extremities 8.Skin: Warm, Dry. No rashes or lesions. 9.Neuro: centrifugal casting machine tender II-XII grossly intact. Sensation grossly intact, no focal neurologic deficits. 10.Psych: (AAO) x3. Appropriate mood and affect Course Vital Signs Temperature 36.4 C L 02/15/18 00:11 Pulse 86 02/15/18 00:11 Respiratory Rate 16 02/15/18 00:11 Blood Pressure 116/66 02/15/18 00:11 Pulse Oximetry 96 02/15/18 00:11 Temperature 36.4 C L 02/15/18 00:11 Temperature Source Temporal Artery Scan 02/15/18 00:11 Pulse 86 02/15/18 00:11 Respiratory Rate 16 02/15/18 00:11 Respiratory Effort Non-Labored 02/15/18 00:12 Blood Pressure 116/66 02/15/18 00:11 Blood Pressure Position Sitting 02/15/18 00:11 Pulse Oximetry 96 02/15/18 00:11 Oxygen Delivery Method Room Air 02/15/18 00:11 Oxygen Flow Rate 0 02/15/18 00:11 Pain Level 8 02/15/18 00:11
[2018-02-15 00:24] VITALS: BP 116/66; PULSE 86; RESP 16; TEMP 36.4; O2SAT 96
== END 2018-02-15 00:27 | disposition home or self-care (01) ==
LOC: ER 01:43
PROVIDERS: Emergency Provider Student in an Organized Health Care Education/Training Program; PCP General Practice
DX: H92.02 Otalgia, left ear (principal)
CPT/HCPCS: 99282

== ENCOUNTER 2020-05-27 03:21 | Outpatient (CLI) | payer MEDICARE, MEDICAID, SELFPAY ==
[2020-05-27 15:27] LABS: Kit/Specimen SENT
[2020-05-27 15:34] LABS: Abs Immature Grans 0.06 10^3/uL (0.0-0.06); Absolute Eosinophil Count 0.02 10^3/uL (0.0-0.7); Absolute Lymphocyte Count 2.04 10^3/uL (1.2-3.4); Absolute Monocyte Count 0.56 10^3/uL (0.1-0.8); Absolute Neutrophil Count 9.49 10^3/uL (1.2-6.7); Basophils % 0.2; Eosinophils % 0.2; HCT 39.2 % (36.0-46.0); HGB 13.3 g/dL (11.2-15.7); Immature Grans % 0.5; Lymphocytes % 16.7; MCHC 33.9 % (32.0-36.0); MCV 85.6 fL (80-95); MPV 11.6 fL (8.0-11.0); Monocytes % 4.6; Neutrophils % 77.8; Nucleated RBC 0 %; Platelet Count 270 10^3/uL (130-400); RBC 4.58 10^6/uL (3.93-5.22); RDW 14.6 % (11.7-14.6); RDW-SD 45.7 fL
[2020-05-27 15:35] LABS: Absolute Basophil Count 0.02 10^3/uL (0.0-0.2)
[2020-05-27 16:14] LABS: TSH (W/Ref FT4) 1.86 uIU/mL (0.36-3.74)
[2020-05-28 09:57] LABS: Hepatitis B Surface Ag Negative (Negative)
[2020-05-28 10:34] LABS: HIV-1/2 Ag & Ab Screen Negative (Negative)
[2020-05-28 10:39] LABS: Hepatitis C Ab w Rflx HCV PCR Negative (Negative)
[2020-05-28 11:33] LABS: Rubella IgG Ab (UVM) Positive (See Note); Varicella IgG Antibody Positive (See Note)
[2020-05-29 10:30] LABS: Syphilis Total Ab w/Reflex Nonreactive (Nonreactive)
[2020-05-29 12:49] LABS: HSV Type 1 Ab, IgG Equivocal (Negative); HSV Type 2 Ab, IgG Negative (Negative)
== END 2020-05-27 03:22 | disposition home or self-care (01) ==
LOC: LBO 03:22
PROVIDERS: Visit Provider Advanced Practice Midwife
DX: O09.521 Supervision of elderly multigravida, first trimester (principal); Z11.4 Encounter for screening for human immunodeficiency virus [HIV]; Z11.59 Encounter for screening for other viral diseases; Z01.84 Encounter for antibody response examination
CPT/HCPCS: 36415; 86787; 86803; 86850; 86900; 86901; 87340; 87389; 84443; 85025; 86695; 86696; 86762; 86780

== ENCOUNTER 2020-05-27 15:45 | Outpatient (REF) | payer MEDICARE, MEDICAID, SELFPAY ==
--- NOTE | 2020-05-27 14:00 | PAPFT_PTH ---
PATIENT: Alisia Hein LOC: [facility] U#:[id number] AGE/SX: 35/F ROOM: RE05/27/[address]: Kathy Barth CNM : 1985 BED: DIS: 05/27/2020 SPEC #: [id number] RECD: 05/27/20 17:43 STATUS: LEIA RETien #: [id number] JOSE: 05/27/20 14:[address]: Kathy Barth DEPT: [facility] Cytology RECD BY: Shanel Rodriguez ENTERED: 05/27/20 17:44 SP TYPE: PAPFT OTHR DR: Petrona Local Tissues: 1 - CX/ENDOCX FOR PAP SMEARS Procedures: PAP THIN PREP/UVM Screening HPV DNA PROBE Comments: [id number]
[2020-05-27 17:48] LABS: *AMPHETAMINES SCREEN URINE Negative (Negative); *BARBITURATES SCREEN URINE Negative (Negative); *BENZODIAZEPINES SCREEN URINE Negative (Negative); Cannabinoids THC Positive (Negative); Cocaine Screen,Urine Negative (Negative); METHADONE URINE SCREEN Negative (Negative); OPIATES URINE SCREEN Negative (Negative)
[2020-05-27 17:51] LABS: Tricyclic Antidepressants Negative (Negative)
[2020-06-02 10:20] LABS: Chlamydia Result Negative (Negative); GC Result Negative (Negative)
[2020-06-03 11:25] LABS: Buprenorphine Negative ng/mL (Cutoff: 5.0); Norbuprenorphine Negative ng/mL (Cutoff: 2.5)
== END 2020-05-27 15:46 | disposition home or self-care (01) ==
LOC: LBN 15:45
PROVIDERS: Visit Provider Advanced Practice Midwife
DX: Z11.3 Encounter for screening for infections with a predominantly sexual mode of transmission (principal); Z12.4 Encounter for screening for malignant neoplasm of cervix; O09.521 Supervision of elderly multigravida, first trimester; Z11.51 Encounter for screening for human papillomavirus (HPV)
CPT/HCPCS: 80307; 87491; 87591; 88142; 87086; 87624

== ENCOUNTER 2020-06-01 03:36 | Outpatient (CLI) | payer MEDICARE, MEDICAID, SELFPAY ==
[2020-06-01 08:43] LABS: Glucose,1 Hr (Glucola) 97 mg/dL (80-140)
== END 2020-06-01 03:37 | disposition home or self-care (01) ==
LOC: LBO 03:36
PROVIDERS: Visit Provider Advanced Practice Midwife
DX: O99.211 Obesity complicating pregnancy, first trimester (principal)
CPT/HCPCS: 36415; 82950

== ENCOUNTER 2020-09-04 18:54 | Outpatient (REF) | payer MEDICARE, MEDICAID, SELFPAY ==
[2020-09-04 12:17] LABS: *AMPHETAMINES SCREEN URINE Negative (Negative); *BARBITURATES SCREEN URINE Negative (Negative); *BENZODIAZEPINES SCREEN URINE Negative (Negative); Cannabinoids THC Positive (Negative); Cocaine Screen,Urine Negative (Negative); METHADONE URINE SCREEN Negative (Negative); OPIATES URINE SCREEN Negative (Negative)
[2020-09-04 12:18] LABS: Tricyclic Antidepressants Positive (Negative)
[2020-09-09 12:37] LABS: Buprenorphine Negative ng/mL (Cutoff: 5.0); Norbuprenorphine Negative ng/mL (Cutoff: 2.5)
== END 2020-09-04 18:55 | disposition home or self-care (01) ==
LOC: LBN 18:54
PROVIDERS: PCP Nurse Practitioner Family; Visit Provider Advanced Practice Midwife
DX: O99.322 Drug use complicating pregnancy, second trimester (principal); F12.90 Cannabis use, unspecified, uncomplicated; Z3A.22 22 weeks gestation of pregnancy
CPT/HCPCS: 80307

== ENCOUNTER 2020-09-07 02:13 | Outpatient (CLI) | payer MEDICARE, MEDICAID, SELFPAY ==
[2020-09-07 11:34] LABS: HCT 31.3 % (36.0-46.0); HGB 10.2 g/dL (11.2-15.7); MCH 27.5 pg (27.0-33.0); MCHC 32.6 % (32.0-36.0); MCV 84.4 fL (80-95); MPV 9.4 fL (8.0-11.0); Platelet Count 341 10^3/uL (130-400); RBC 3.71 10^6/uL (3.93-5.22); RDW 13.3 % (11.7-14.6); RDW-SD 41.3 fL
[2020-09-07 11:40] LABS: Glucose,1 Hr (Glucola) 132 mg/dL (80-140)
== END 2020-09-07 02:14 | disposition home or self-care (01) ==
LOC: LBO 02:13
PROVIDERS: PCP Nurse Practitioner Family; Visit Provider Advanced Practice Midwife
DX: O99.212 Obesity complicating pregnancy, second trimester (principal); O99.512 Diseases of the respiratory system complicating pregnancy, second trimester; J45.909 Unspecified asthma, uncomplicated
CPT/HCPCS: 36415; 82950; 85027

== ENCOUNTER 2020-09-08 02:10 | Outpatient (CLI) | payer MEDICARE, MEDICAID, SELFPAY ==
--- NOTE | 2020-09-08 08:30 | DI.US_ITS ---
Exam(s) US OB F/U FACIAL/LVOT/RVOT EXAM: US OB F/U FACIAL/LVOT/RVOT CLINICAL HISTORY: low- lying placenta, O44.42. TECHNIQUE: Transabdominal obstetrical ultrasound performed. FINDINGS: Transabdominal obstetrical ultrasound performed. FINDINGS: Number of fetuses: One. position: Breech. Placental location: Posterior. Grade 1. no evidence of previa. The placental tip lies 4.6 cm from t he internal os on the transvaginal images. Cervical length is 5 cm. Heart Rate: 150BPM Amniotic fluid index: Visually, amount of fluid is within normal limits. IMPRESSION: 1. Single live intrauterine gestation as above. 2. There is no evidence of a low-lying placenta or placenta previa. DATA REPOSITORY:
== END 2020-09-08 02:30 ==
PROVIDERS: PCP Nurse Practitioner Family; Visit Provider Advanced Practice Midwife
DX: Z34.90 Encounter for supervision of normal pregnancy, unspecified, unspecified trimester (principal); Z3A.00 Weeks of gestation of pregnancy not specified
CPT/HCPCS: 76815

== ENCOUNTER 2020-10-14 16:02 | Observation (INO) | payer MEDICARE, MEDICAID, SELFPAY ==
[2020-10-14 16:04] VITALS: BP 132/74; PULSE 85
[2020-10-14 16:07] VITALS: RESP 20; TEMP 36.3
--- NOTE | 2020-10-14 16:22 | W.PM.OBHPL1 ---
Date of service: 10/14/20 Time of Service: 16:22 Assessment and Plan Assessment and plan (1) Left upper quadrant abdominal pain: Status: Acute Assessment and plan: exam is negative for splenomegaly, will get CMP CBC and get IV hydration due to persistent N&V and reassess. (2) Nausea and vomiting in : Status: Acute Assessment and plan: will give IV hydration and IV zofran for N&V and reassess. OB-HPI Labor/Delivery History of Present Illness Reason for Visit: NST Chief Complaint: Other (Nausea and vomiting, left upper abdominal pain). CLARISA Calculator Estimated Delivery Date Method Current WG Current Estimate 12/02/20 Ultrasound #1 33w 0d Other Estimates 12/14/20 LMP (Uncertain) 31w 2d History of Present Expected Delivery Route/Plan - CNM FOB/ - Gui Griggs (his first child ) BB no circ Specific Issues/Plan 1. PTSD, depression, seizure disorder, fibromyalgia: on multiple psych/neuro medications: - gabapentin, cymbalta, lunestra, trazodone - Per Dr. Moon, d/c lunestra, offer alternative sleep aid, pt accepts Vistaril 75 mg qhs - [facility] level 2 sono & MFM consult d/t med exposures and AMA, sched'ed for 07/15/20 - PHQ9 score at initial OB is 14, pt accepts referral to [facility]: done 06/08, pt to be referred to provider - As of 07/20/20: seeing therapist Alka Wisdom, seen @ [facility] last week, monthly check-in's scheduled -Worsening amxiey - buspar TID ordered by [facility] 09/07 2. Hx PCOS: obesity, facial hair, difficulty conceiving, no meds needed 3. Obesity with BMI 42, early glucola = 97 4. 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 AMA age 35: pt accepts [place] screening and [facility] level 2 sono/MFM consult (for 07/15/20) 5a. [place] low prob x3, gender ID inconclusive 6. First trimester spotting 05/12 - precautions reviewed. Appears to have small cervical os polyp 7. Hx rheumatoid arthritis (remission?), s/p cholecystectomy, s/p gastric sleeve (lost 100 lbs) 8. Question of hx of seizure disorder, pt denied at initial OB but noted on problem list 9. Son (13 yo) has high functioning autism & ADHD 10. Initial OB UDS is THC+, day camp counselor regarding safety, repeat UDS @ 28 wks, POSC if still+ 10a. stopped using. 11. Placenta low lying and posterior at [facility] level 2 sono. Recheck location @ 28 wks 09/08 11a. 09/08 sono shows 4.6 cm from placental tip to os, low lie is resolved. 12. Alisia and Gui are vaccinated for covid 13. Size greater than dates- US scheduled at 32 weeks for growth and SHILO. Assessment: History Reviewed & Current Informed Consent Informed Consent: Other (IV hydration and antiemetic.) Review of Systems Narrative: states she vomits daily but today has not been able to keep any of her food in and developed left upper abdominal pain last evening after vomiting. Denies contractions, LOF or vaginal bleeding. Baby has been active. Describes pain as achy and worse with cough or vomiting. Denies fever or chills. All systems reviewed & are unremarkable except as noted in HPI and below PFSH Medical History Asthma Depression Fibromyalgia Gastritis Continue omeprazole, awaiting biopsy results GERD (gastroesophageal reflux disease) Low lying placenta nos or without hemorrhage, second trimester Nausea vomiting and diarrhea EGD showed gastritis awaiting pathology results, question dumping syndrome Obesity (BMI 30-39.9) PCOS (polycystic ovarian syndrome) Seizures Surgical History Cholecystectomy (~2002) Gastric Bypass (02/13/13) H/O colonoscopy (10/17/17) Dr Roberts History of esophagogastroduodenoscopy (EGD) (10/17/17) Dr Roberts Infected hardware in right leg Status post removal of hardware on 01/11/2018 Replacement of total knee joint (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 Father Diabetes Heart disease Social History Smoking/Tobacco Use Status: Never Smoking risk assessment performed?: Yes Alcohol Intake: never Drug use: Never current occupation: On Disability Do you feel safe in your relationship?: Yes Female Reproductive History Menstrual control method: none History History 2 Para 1 Hx # Term Pregnancies 1 Multiple births 0 Hx # Pregnancies 0 Ectopic pregnancies 0 AB induced 0 Hx Number of Living Children 1 AB spontaneous 0 Past Pregnancies Del. Date GA/Weeks # Outcome Route Wgt Sex Labor Lgth Anesthesia Location Prov Complic 10/29/07 40 No Successful vaginal Male 30 regional [place] Delivery Date: 10/29/07 PROM then induction and epidural Ann Chambers Allergies and Home Medications Allergies Allergy/AdvReac Type Severity Reaction Status Date / Time ibuprofen Allergy Severe Anaphylaxsi Verified 10/14/20 16:25 s salicylates Allergy Severe Anaphylaxsi Verified 10/14/20 16:25 s bee Allergy Severe Anaphylaxsi Uncoded 10/14/20 16:25 s Home Medications Medication Instructions Recorded Confirmed Type albuterol sulfate [ProAir HFA] 2 puff INHALATION Q4H PRN inhaler 09/25/17 10/06/20 History ferrous sulfate 324 mg PO DAILY #30 tab 09/25/17 10/14/20 Rx Flovent HFA 1 puff INHALATION DAILY PRN 01/03/18 10/06/20 History acetaminophen 1,000 mg PO Q8H PRN #90 cap 01/11/18 10/06/20 Rx diphenhydramine HCl [Benadryl] 25 mg PO Q6H PRN #14 cap 02/15/18 10/14/20 Rx gabapentin 300 mg capsule 300 mg PO QHS 06/11/20 10/14/20 History duloxetine 60 mg capsule,delayed 60 mg PO BID #60 cap 06/16/20 10/14/20 Rx release docusate sodium 50 mg capsule 50 mg PO BID #60 cap 07/22/20 10/14/20 Rx ondansetron HCl 4 mg tablet 4 mg PO Q8H PRN #30 tab 07/22/20 10/14/20 Rx aripiprazole 5 mg tablet 5 mg PO DAILY 09/04/20 10/06/20 History duloxetine 20 mg capsule,delayed 20 mg PO BID 09/04/20 10/14/20 History release vitamin with calcium 1 tab PO DAILY #90 tab 09/08/20 10/14/20 Rx no.72-iron 27 mg-folic acid 1 mg tablet Exam Physical Exam Vital signs: Temp Pulse Resp BP 97.3 F L 85 20 132/74 10/14/20 16:07 10/14/20 16:04 10/14/20 16:07 10/14/20 16:04 Vital Signs Reviewed: Yes Constitutional Constitutional: no acute distress and morbidly obese Detailed Labor and Delivery Exam Mcclendon Score: Cervical Points Exam 0 1 2 3 Dilation Closed 1-2cm 3-4 cm 5-6cm Effacement 0-30% 40-50% 60-70% 80% Consistency Firm Medium Soft Station -3 -2 -1,0 +1,+2 Position Posterior Mid Anterior Fetus A Heart Rate Baseline: 130 Monitor Accelerations: 15 X 15 Monitor Decelerations: None Variability: Moderate (6-25 BPM) Categories: Category I Risk Assessment Risk for Shoulder Dystocia Historical/Initial OB: POSITIVE FOR: Pre- BMI>30; NEGATIVE FOR: Pelvic Abnormality, Previous Shoulder Dystocia or Previous Macrosomia Risk for Pre-Eclampsia Date Initiated/Initials: low dose ASA Is indicated but pt is allergic to aspirin (anaphylaxis). JK Yes, if one or more: NEGATIVE FOR: Hx Pre-E/Gest HTN, Chronic HTN, Multiple Gestation, Pre-gestational DM, Renal Disease, Systemic Lupus or APA Syndrome Yes, if 2 or more: POSITIVE FOR: Age>= 35 yrs, >10yr btwn pregnancies and BMI>30; NEGATIVE FOR: Nulliparity, ethinicty, Mother/Sister w/ Pre-E or Previous IUGR Risk for Post- Hemorrhage Initial: NEGATIVE FOR: Multiple Gestation, Previous PPH, Known Clotting Deficiency, Grand Multiparity or Anticoagulation Risks Reviewed Risks Reviewed Upon Admission: Yes
[2020-10-14 16:25] VITALS: BP 132/74; PULSE 85; TEMP 36.3
[2020-10-14 17:00] LABS: HCT 28.8 % (36.0-46.0); HGB 8.9 g/dL (11.2-15.7); MCH 23.4 pg (27.0-33.0); MCHC 30.9 % (32.0-36.0); MCV 75.8 fL (80-95); Platelet Count 316 10^3/uL (130-400); RDW 16.2 % (11.7-14.6); RDW-SD 44.6 fL
[2020-10-14] MEDS: Lactated Ringers 1,000 ML 125 ML IV (17:01)
[2020-10-14 17:15] LABS: ALT 15 U/L (14-59); AST 14 U/L (15-37); Alkaline Phosphatase 129 U/L (46-116); Anion Gap 10.6 mmol/L (3-11); BUN 5 mg/dL (7-18); Bilirubin, Total 0.3 mg/dL (0.2-1.0); CO2 22.4 mmol/L (21.0-32.0); CREATININE 0.7 mg/dL (0.55-1.02); Calcium 8.3 mg/dL (8.5-10.1); Chloride 105 mmol/L (98-107); Glucose 83 mg/dL (74-106); Potassium 3.3 mmol/L (3.5-5.1); Sodium 138 mmol/L (136-145)
[2020-10-14 17:25] VITALS: BP 132/74; PULSE 85; TEMP 36.3
--- NOTE | 2020-10-14 17:27 | W.PM.PROGNOT ---
Date of Service Date of service: 10/14/20 Time of Service: 17:27 Assessment and Plan Assessment and plan (1) Nausea and vomiting in : Status: Acute Assessment and plan: will take in po hydration and call if not able to keep down solid foods. Has appointment in [facility] on 10/20/20 and will discuss possible IV iron therapy at that time. NASIM (2) Left upper quadrant abdominal pain: Status: Acute Assessment and plan: tylenol as needed and ice. NASIM Subjective Subjective Patient reports: no new complaints, pain is less and tolerating liquids well Interval history since last seen: IV came out before she was able to get IV hydration and or zofran. She prefers to go home to drink fluids and rest vs starting another IV. Has not had emesis since arriving. is present and supportive. She has access to food and sport drinks at home. We discussed her hgb and hct and that she may need IV iron infusions and that we should discuss that in the office at her next visit. NASIM Exam Narrative Exam Narrative: No exam changes. NASIM Objective Last Vital Signs Temp 97.3 F L 10/14/20 16:07 Pulse 85 10/14/20 16:04 Resp 20 10/14/20 16:07 BP 132/74 10/14/20 16:04 Laboratory Results - last 24 hr 10/14/20 10/14/20 16:25 16:25 WBC 14.40 H RBC 3.80 L Hgb 8.9 L Hct 28.8 L MCV 75.8 L MCH 23.4 L MCHC 30.9 L RDW 16.2 H Plt Count 316 MPV 10.0 Sodium 138 Potassium 3.3 L Chloride 105 Carbon Dioxide 22.4 Anion Gap 10.6 BUN 5 L Creatinine 0.7 Estimated GFR/1.73 m2 >= 60.00 Glucose 83 Calcium 8.3 L Total Bilirubin 0.3 AST 14 L ALT 15 Alkaline Phosphatase 129 H Total Protein 6.0 L Albumin 2.0 L Reviewed Pertinent PMH: Yes Objective Narrative Objective Narrative: patient declines staying for IV hydration and or medications. Feels she will be able to keep down fluids at home. NASIM
--- NOTE | 2020-10-14 17:32 | DSE_ITS ---
Date of service: 10/14/20 Time of Service: 17:32 DS: Diagnosis Discharge Diagnosis (1) Nausea and vomiting in : Status: Acute Asessment and Plan: no vomiting since arrival, able to keep fluids in since arriving. declines restart of IV after it was accidentally pulled out. Desires discharge to home. KH (2) Left upper quadrant abdominal pain: Status: Acute Asessment and Plan: reports pain is tolerable and desires discharge to home. will follow up in office on 10/20/20 or prn. KH (3) Anemia affecting in third trimester: Status: Acute Asessment and Plan: we discussed IV iron infusion as patient has daily nausea and vomiting and is not keeping ferrous sulfate in. She will discuss this with hand binder stripper at next visit. KH (4) Hypokalemia, inadequate intake: Status: Acute Asessment and Plan: K+ 3.3 today, she will drink half strength sport drinks at home and report further vomiting. Offered replacement and patient declines as she desires discharge to home. Discharge Plan Disposition Patient Disposition: HOME Condition: Stable Discharge Details Reason For Visit: Nausea and vomiting, left upper quadrant abdominal Admit Date/Time: 10/14/20 16:02 Admit Provider: Ann Amaya Attending Provider: Ann Amaya Primary Care Provider: Ivette Ernst Home Meds and New Rx's Prescriptions: No Action ondansetron HCl 4 mg tablet 4 mg PO Q8H PRN (Reason: nausea and vomiting) Qty: 30 RF: 4 Colace Clear 50 mg capsule 50 mg PO BID Qty: 60 RF: 3 PrePlus 27 mg iron- 1 mg tablet 1 tab PO DAILY Qty: 90 RF: 2 aripiprazole [Abilify] 5 mg tablet 5 mg PO DAILY RF: 0 duloxetine 20 mg capsule,delayed release(DR/EC) 20 mg PO BID RF: 0 albuterol sulfate [ProAir HFA] 8.5 GM HFA aerosol inhaler 2 puff Inhalation Q4H PRN RF: 0 ferrous sulfate 324 MG tablet,delayed release (DR/EC) 324 mg PO DAILY Qty: 30 RF: 4 gabapentin 300 mg capsule 300 mg PO QHS RF: 0 duloxetine [Cymbalta] 60 mg capsule,delayed release(DR/EC) 60 mg PO BID Qty: 60 RF: 0 Flovent HFA 110 mcg/actuation Hfa Aerosol Inhaler 1 puff INHALATION DAILY PRNRF: 0 acetaminophen 500 mg capsule 1,000 mg PO Q8H PRN (Reason: pain) Qty: 90 RF: 0 diphenhydramine HCl [Benadryl] 25 mg capsule 25 mg PO Q6H PRN (Reason: allergy symptoms) Qty: 14 RF: 0 Discharge Instructions Activity:: Activity as Tolerated Equipment/Supplies:: No Equipment Needed Diet:: As Tolerated Discharge Orders Discharge Orders: Discharge Order (Routine); Ordered 10/14/20 Ordered By: Ann Amaya Discharge Data Discharge Date/Time-TO BE ENTERED AT DEPARTURE: 10/14/20 17:35 OB:DS Summary Contraception Discussed Contraception Discussed: No, Status at Discharge Functional status at discharge: independent ambulation Overall status at discharge: patient is back to baseline Mental Status: mental status grossly normal Speech and Movement: speech and movement normal Mood: congruent mood Affect: normal affect Time Spent with Patient providing and/or coordinating discharge services: Less than 30 minutes Quality: AMI Clinical Trial Participant: No Exam Physical Exam Vital signs: Temp Pulse Resp BP 97.3 F L 85 20 132/74 10/14/20 16:07 10/14/20 16:04 10/14/20 16:07 10/14/20 16:04 Vital Signs Reviewed: Yes Constitutional Constitutional: no acute distress HEENT Exam HEENT Exam: Normal Neck Exam Neck Exam: Not Done Respiratory Exam Respiratory Exam: Normal Cardiovascular Exam Cardiovascular Exam: Normal Abdominal Exam Abdomen: Other (gravid, size greater than dates but altered by BMI) Rectal Exam Rectal Exam: Not Done Extremities Exam Extremity Exam: Normal Back/Spine/Pelvis Exam Back Exam: Not Done Skin Exam Skin Exam: Normal Neurological Exam Neurological Exam: Normal Psychiatric Exam Psychiatric Exam: Normal [facility] Medical History Asthma Depression Fibromyalgia Gastritis Continue omeprazole, awaiting biopsy results GERD (gastroesophageal reflux disease) Low lying placenta nos or without hemorrhage, second trimester Nausea vomiting and diarrhea EGD showed gastritis awaiting pathology results, question dumping syndrome Obesity (BMI 30-39.9) PCOS (polycystic ovarian syndrome) Seizures Surgical History Cholecystectomy (~2002) Gastric Bypass (02/13/13) H/O colonoscopy (10/17/17) Dr Roberts History of esophagogastroduodenoscopy (EGD) (10/17/17) Dr Roberts Infected hardware in right leg Status post removal of hardware on 01/11/2018 Replacement of total knee joint (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 Father Diabetes Heart disease Social History Smoking/Tobacco Use Status: Never Smoking risk assessment performed?: Yes Alcohol Intake: never Drug use: Never current occupation: On Disability Do you feel safe in your relationship?: Yes Female Reproductive History Menstrual control method: none History History 2 Para 1 Hx # Term Pregnancies 1 Multiple births 0 Hx # Pregnancies 0 Ectopic pregnancies 0 AB induced 0 Hx Number of Living Children 1 AB spontaneous 0 Past Pregnancies Del. Date GA/Weeks # Outcome Route Wgt Sex Labor Lgth Anesthes ia Location [facility] 10/29/07 40 No Successful vaginal Male 30 [facility] [place] Delivery Date: 10/29/07 PROM then induction and epidural Ann Chambers DS: Data Vitals/I&O Vitals and I&O: Vital Signs Temperature 97.3 F L 10/14/20 16:07 Pulse 85 10/14/20 16:04 Respiratory Rate 20 10/14/20 16:07 Blood Pressure 132/74 10/14/20 16:04 Intake & Output 10/13/20 10/14/20 10/14/20 23:59 11:59 23:59 Intake Total 29.167 / 29.167 Balance 29.167 / 29.167 Intake: IV 29.167 / 29.167 Data Completed and Pending Labs on day of discharge: Labs from last 24 hours 10/14/20 10/14/20 10/14/20 16:25 16:25 16:03 WBC 14.40 H RBC 3.80 L Hgb 8.9 L Hct 28.8 L MCV 75.8 L MCH 23.4 L MCHC 30.9 L RDW 16.2 H Plt Count 316 MPV 10.0 Sodium 138 Potassium 3.3 L Chloride 105 Carbon Dioxide 22.4 Anion Gap 10.6 BUN 5 L Creatinine 0.7 Estimated GFR/1.73 m2 >= 60.00 Glucose 83 Calcium 8.3 L Total Bilirubin 0.3 AST 14 L ALT 15 Alkaline Phosphatase 129 H Total Protein 6.0 L Albumin 2.0 L Urine Color Pending Urine Clarity Pending Urine pH Pending Ur Specific Wy[place] Pending Urine Protein Pending Urine Ketones Pending Urine Blood Pending Urine Nitrite Pending Urine Bilirubin Pending Urine Urobilinogen Pending Ur Leukocyte Esterase Pending Urine Glucose Pending
--- NOTE | 2020-10-14 17:47 | W.OBNST ---
Date of service: 10/14/20 Time of Service: 16:00 NST Evaluation Reason for NST Reasons for Nonstress Test: OTHER, SEE COMMENT Reason for NST Other: Left upper quadrant pain, nausea, and vomiting. Gestational Age Gestational Age in Weeks and Days: 33 Weeks and 0Days Test and Monitor Explained Test/Monitor Explained: Test Explained, Monitor Explained and Patient Verbalized Understanding Vital Signs Blood Pressure: 132/74 Pulse: 85 Temperature: 97.3 F NST Information Date on Monitor: 10/14/20 Time on Monitor: 15:57 Date off Monitor: 10/14/20 Time off Monitor: 16:50 Total Time on Monitor: 53 NST Interventions: PO Hydration and IV Fluids NST Evaluation Patient States Movement: Present FHR Baseline: 135 Variability: Moderate 6-25 bpm Accelerations: 15x15 Decelerations: None NST Results: Reactive Note NST Note Note: reactive NST which was done for persistent N&V as well as left upper abdominal pain. NST Reviewed and Verified by: Ann Amaya
[2020-10-14 17:48] VITALS: BP 132/74; PULSE 85; TEMP 36.3
== END 2020-10-14 17:35 | disposition home or self-care (01) ==
LOC: OBS 16:20 → BCD 10-15 15:07
PROVIDERS: Admitting Provider Advanced Practice Midwife; PCP Nurse Practitioner Family; Visit Provider Advanced Practice Midwife
DX: O21.2 Late vomiting of pregnancy; O99.013 Anemia complicating pregnancy, third trimester; E87.6 Hypokalemia; Z3A.33 33 weeks gestation of pregnancy; O99.353 Diseases of the nervous system complicating pregnancy, third trimester; O99.343 Other mental disorders complicating pregnancy, third trimester; F32.9 Major depressive disorder, single episode, unspecified; O99.283 Endocrine, nutritional and metabolic diseases complicating pregnancy, third trimester; E28.2 Polycystic ovarian syndrome; O99.213 Obesity complicating pregnancy, third trimester; E66.9 Obesity, unspecified; O26.843 Uterine size-date discrepancy, third trimester; G40.909 Epilepsy, unspecified, not intractable, without status epilepticus
CPT/HCPCS: 80053; 85027; 59025; 81003; J2405

== ENCOUNTER 2020-10-21 09:34 | Outpatient (CLI) | payer MEDICARE, MEDICAID, SELFPAY ==
[2020-10-21 14:19] VITALS: BP 130/63; PULSE 99; TEMP 36.8
[2020-10-21 14:28] VITALS: BP 130/63; PULSE 99; TEMP 36.8
--- NOTE | 2020-10-21 15:25 | W.OBNST ---
Date of service: 10/21/20 Time of Service: 15:26 NST Evaluation Reason for NST Reasons for Nonstress Test: OTHER, SEE COMMENT Reason for NST Other: Edema Gestational Age Gestational Age in Weeks and Days: 34 Weeks and 0Days Test and Monitor Explained Test/Monitor Explained: Test Explained, Monitor Explained and Patient Verbalized Understanding Vital Signs Blood Pressure: 130/63 Pulse: 99 Temperature: 98.2 F NST Information Date on Monitor: 10/21/20 Time on Monitor: 14:15 NST Interventions: PO Hydration NST Evaluation Patient States Movement: Present Note NST Note Note: 1 + pitting edema bilaterally of lower legs and feet. preeclampsia labs ordered . await results. NST Reviewed and Verified by: Ann Chambers
[2020-10-21 15:27] VITALS: BP 130/63; PULSE 99; TEMP 36.8
[2020-10-21 15:39] LABS: PROTEIN 60.9 mg/dL
[2020-10-21 15:42] LABS: COMMENT (LAB VIEW ONLY) 256.67 mg/dL; Prot/Crea Ur Ratio 0.23
[2020-10-21 16:14] LABS: HCT 29.9 % (36.0-46.0); HGB 9.3 g/dL (11.2-15.7); MCHC 31.1 % (32.0-36.0); MCV 77.3 fL (80-95); Platelet Count 304 10^3/uL (130-400); RBC 3.87 10^6/uL (3.93-5.22); RDW 18.6 % (11.7-14.6); WBC 14.77 10^3/uL (4.4-10.8)
[2020-10-21 16:32] LABS: ALT 19 U/L (14-59); AST 17 U/L (15-37); Albumin 1.9 g/dL (3.4-5.0); Alkaline Phosphatase 119 U/L (46-116); Anion Gap 8.9 mmol/L (3-11); BUN 8 mg/dL (7-18); Bilirubin, Total 0.3 mg/dL (0.2-1.0); CO2 25.1 mmol/L (21.0-32.0); CREATININE 0.8 mg/dL (0.55-1.02); Calcium 8.5 mg/dL (8.5-10.1); Chloride 104 mmol/L (98-107); Glucose 92 mg/dL (74-106); Potassium 3.3 mmol/L (3.5-5.1); Sodium 138 mmol/L (136-145); Total Protein 5.8 g/dL (6.4-8.2); Uric Acid 5.7 mg/dL (2.6-6.0)
== END 2020-10-21 15:00 | disposition home or self-care (01) ==
LOC: BCD 09:35 → OBS 14:11
PROVIDERS: PCP Nurse Practitioner Family; Visit Provider Advanced Practice Midwife
DX: O12.03 Gestational edema, third trimester (principal); Z3A.34 34 weeks gestation of pregnancy
CPT/HCPCS: 80053; 85027; 59025; 82565; 84156; 84550

== ENCOUNTER 2020-10-23 03:59 | Outpatient (CLI) | payer MEDICARE, MEDICAID, SELFPAY ==
--- NOTE | 2020-10-23 08:15 | DI.US_ITS ---
Exam(s) US OB SHILO WEIGHT EXAM: US OB SHILO WEIGHT CLINICAL HISTORY: medication exposure, size greater than dates O99.210 OBESITY, R69 ILLNESS. TECHNIQUE: Transabdominal obstetrical ultrasound performed. COMPARISON: US US OB F/U FACIAL/LVOT/RVOT from 09/08/2020 US US OB F/U FACIAL/LVOT/RVOT from 09/08/2020 FINDINGS:: Number of fetuses: One. position: Vertex. Placental location: Posterior. No evidence of previa. BIOMETRIC DATA: BPD: 87mm = 35+ 0 weeks HC: 333mm = 38+ 0 weeks AC: 340mm = 37+ 6 weeks FL: 70 mm = 30 5+5 weeks EFW: 3108 Gms = 98% Composite Age: 36+ 5 weeks EDC by ultrasound: December 03 Heart Rate: 158 BPM Amniotic fluid index: 20.1 cm. Amount of fluid is within normal limits. IMPRESSION: size greater than predicted for gestational age. weight 98th percentile. DATA REPOSITORY:
== END 2020-10-23 04:19 ==
PROVIDERS: PCP Nurse Practitioner Family; Visit Provider Advanced Practice Midwife
DX: O99.213 Obesity complicating pregnancy, third trimester (principal); R69 Illness, unspecified; Z3A.34 34 weeks gestation of pregnancy
CPT/HCPCS: 76816; 96365; J1756

== ENCOUNTER 2020-10-23 05:31 | Outpatient (RCR) | payer MEDICARE, MEDICAID, SELFPAY ==
[2020-10-16] MEDS: Normal Saline Flush 10 ML SYR IVP ×2 (11:33→11:59)
[2020-10-16 11:39] LABS: HGB 9.2 g/dL (11.2-15.7)
[2020-10-16] MEDS: IRON SUCROSE COMPLEX 200 MG in Normal Saline 100 ML 440 MG IVPB (11:59)
[2020-10-23] MEDS: IRON SUCROSE COMPLEX 200 MG in Normal Saline 100 ML 440 MG IVPB (11:20)
[2020-10-23] MEDS: Normal Saline Flush 10 ML SYR IVP (11:20)
== END 2020-11-12 23:59 | disposition home or self-care (01) ==
LOC: INF 05:31
PROVIDERS: PCP Nurse Practitioner Family; Visit Provider Advanced Practice Midwife
DX: O99.013 Anemia complicating pregnancy, third trimester (principal); D64.9 Anemia, unspecified
CPT/HCPCS: 36415; 96365; 83036; 85018; J1756

== ENCOUNTER 2020-10-27 06:43 | Inpatient (IN) | payer MEDICARE, MEDICAID, SELFPAY ==
[2020-10-27] VITALS (11 sets, daily range): BP systolic 115–135; BP diastolic 69–84; PULSE 74–92; RESP 18; TEMP 36.7–36.9; O2SAT 97
[2020-10-27 06:39] LABS: Bilirubin Negative (Negative); Blood Large (Negative); Clarity Sl Cloudy (Clear); Glucose Negative (Negative); Ketones Negative (Negative); Leukocyte Esterase Small (Negative); Nitrite Negative (Negative); Urobilinogen 0.2 EU/dL (Up TO 0.2)
[2020-10-27 06:46] LABS: Bacteria Moderate HPF (Negative); C & S Indicated? No/Sq. Contamination; Casts Negative LPF (Negative); Crystals Negative HPF (Negative); Epithelial Cells Moderate HPF (Negative); Mucus Negative (Negative)
[2020-10-27] MEDS: Lactated Ringers 500 ML IV (07:10)
[2020-10-27] MEDS: Oxytocin/Normal Saline 30 UNIT/500 ML BAG 334 UNITS IV (07:26)
--- NOTE | 2020-10-27 07:27 | PLAC_PTH ---
PATIENT: Alisia Hein LOC: OBS U#:[id number] AGE/SX: 35/F ROOM: OBS.304 RE10/27/[address]: Ann Chambers : 1985 BED: A DIS: 10/29/2020 SPEC #: [id number] RECD: 10/27/20 12:52 STATUS: LEIA REQ #: [id number] JOSE: 10/27/20 07:[address]: Ann Chambers DEPT: Surgical Specimen RECD BY: Shanel Rodriguez ENTERED: 10/27/20 12:53 SP TYPE: PLAC OTHR DR: Ivette Ernst Tissues: 1 - PLACENTA (3RD TRIMESTER) Procedures: GROSS AND MICRO LEVEL 5 Comments: [id number]
--- NOTE | 2020-10-27 08:08 | NUR.NOTE ---
pt came in at 0620 am complaining of contractions vitals taken difficult to get fh on the monitor due to body haitusNursing Note:
[2020-10-27 08:38] LABS: Abs Immature Grans 0.24 10^3/uL (0.0-0.06); Absolute Eosinophil Count 0.03 10^3/uL (0.0-0.7); Absolute Lymphocyte Count 1.74 10^3/uL (1.2-3.4); Absolute Monocyte Count 0.78 10^3/uL (0.1-0.8); Basophils % 0.2; Eosinophils % 0.2; HCT 32.1 % (36.0-46.0); HGB 9.8 g/dL (11.2-15.7); Immature Grans % 1.4; Lymphocytes % 10.5; MCH 23.9 pg (27.0-33.0); MCHC 30.5 % (32.0-36.0); MCV 78.3 fL (80-95); MPV 10.4 fL (8.0-11.0); Monocytes % 4.7; Nucleated RBC 0 %; RDW 20.2 % (11.7-14.6); RDW-SD 49.1 fL; WBC 16.61 10^3/uL (4.4-10.8)
[2020-10-27 08:41] LABS: Absolute Basophil Count 0.03 10^3/uL (0.0-0.2); Absolute Neutrophil Count 13.79 10^3/uL (1.2-6.7)
[2020-10-27] MEDS: Acetaminophen 325 MG TAB 650 MG PO ×2 (08:48→12:56)
[2020-10-27 08:49] LABS: Platelet Count 320 10^3/uL (130-400)
[2020-10-27 08:50] LABS: Anisocytosis 2+; Diff Comment Diff Reviewed; Polychromasia Present
[2020-10-27] MEDS: Dibucaine 1% 28 GM TUBE TP (08:50)
[2020-10-27 08:51] LABS: Poikilocytes 1+
[2020-10-27 08:52] LABS: ALT 19 U/L (14-59); AST 18 U/L (15-37); Albumin 1.9 g/dL (3.4-5.0); Alkaline Phosphatase 131 U/L (46-116); Anion Gap 12.4 mmol/L (3-11); BUN 9 mg/dL (7-18); Bilirubin, Total 0.2 mg/dL (0.2-1.0); CO2 20.6 mmol/L (21.0-32.0); CREATININE 1.1 mg/dL (0.55-1.02); Calcium 8.6 mg/dL (8.5-10.1); Chloride 105 mmol/L (98-107); Estimated GFR 55.89 (mL/min/1.73m2); Glucose 101 mg/dL (74-106); Potassium 3.5 mmol/L (3.5-5.1); Sodium 138 mmol/L (136-145); Uric Acid 6.4 mg/dL (2.6-6.0)
--- NOTE | 2020-10-27 09:27 | W.PM.OBHPL1 ---
Date of service: 10/27/20 Time of Service: 09:27 Assessment and Plan Assessment and plan (1) labor: Status: Acute Assessment and plan: Admit to Center. Comfort measures. I.V. start of LR recommended. Preparations made for imminent delivery. Breakfast Manager present. scalp electrode placed for better assessment. Covid- 19 test. Anticipate . OB-HPI Labor/Delivery History of Present Illness Reason for Visit: Labor Chief Complaint: Uterine Contractions. CLARISA Calculator Estimated Delivery Date Method Current WG Current Estimate 12/02/20 Ultrasound #1 34w 6d Other Estimates 12/14/20 LMP (Uncertain) 33w 1d Comments: Alisia called at 0530 and reported 'cramping which was lasting 20 seconds. She was breathing through the contractions on the phone and I instructed her to come in. I received a call at 0639 that her cervix was 3 cms and she was feeling a lot of pressure and pain. She was admitted and began using nitrous oxide for the pain. An attempt was made to start an I.V. with difficulty and admission labs were ordered but the laborer wharf was unable to obtain the blood sample. I called the unit at 0650 while en route and was told that it was difficult to trace the FHTs due to maternal habitus and that her menmbranes had ruptured for clear fluid. I requested pediatric presence for impending delivery and called Dr. Moon to notify her of the patient's admission and imminent deliveryUpon my arrival, Alisia was using nitrous oxide for pain relief with good effect. Intermittent FHR tracing showed FHTs were 120s and rising to 180s. She had been examined by the RN again after her membranes ruptured and was found to be fully dilated. History of Present Expected Delivery Route/Plan - CNM FOB/ - Gui Griggs (his first child ) BB no circ Specific Issues/Plan 1. PTSD, depression, seizure disorder, fibromyalgia: on multiple psych/neuro medications: - gabapentin, cymbalta, lunestra, trazodone - Per Dr. Moon, d/c lunestra, offer alternative sleep aid, pt accepts Vistaril 75 mg qhs - [facility] [place] level 2 sono & MFM consult d/t med exposures and AMA, sched'ed for 07/15/20 - PHQ9 score at initial OB is 14, pt accepts referral to [facility]: done 06/08, pt to be referred to provider - As of 07/20/20: seeing therapist Alka Wisdom, seen @ [facility] last week, monthly check-in's scheduled -Worsening amxiey - buspar TID ordered by [facility] 09/07 2. Hx PCOS: obesity, facial hair, difficulty conceiving, no meds needed 3. Obesity with BMI 42, early glucola = 97 4. 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 AMA age 35: pt accepts [place] screening and [facility] [place] level 2 sono/MFM consult (for 07/15/20) 5a. [place] low prob x3, gender ID inconclusive 6. First trimester spotting 05/12 - precautions reviewed. Appears to have small cervical os polyp 7. Hx rheumatoid arthritis (remission?), s/p cholecystectomy, s/p gastric sleeve (lost 100 lbs) 8. Question of hx of seizure disorder, pt denied at initial OB but noted on problem list 9. Son (13 yo) has high functioning autism & ADHD 10. Initial OB UDS is THC+, debt management counselor regarding safety, repeat UDS @ 28 wks, POSC if still+ 10a. stopped using. 11. Placenta low lying and posterior at [facility] [place] level 2 sono. Recheck location @ 28 wks 09/08 11a. 09/08 sono shows 4.6 cm from placental tip to os, low lie is resolved. 12. Alisia and Gui are vaccinated for covid 13. Size greater than dates- US scheduled at 32 weeks for growth and SHILO. 13a. US shows SHILO 20, EFW 98%ile 14. Anemia - unable to tolerate PO ferrous sulfate, IV iron infusion ordered 10/15/20 15. Edema of lower limbs - B.P. WNL and preeclampsia screen WNL [facility] Medical History Asthma Depression Fibromyalgia Gastritis Continue omeprazole, awaiting biopsy results GERD (gastroesophageal reflux disease) Low lying placenta nos or without hemorrhage, second trimester Nausea vomiting and diarrhea EGD showed gastritis awaiting pathology results, question dumping syndrome Obesity (BMI 30-39.9) PCOS (polycystic ovarian syndrome) Seizures Surgical History Cholecystectomy (~2002) Gastric Bypass (02/13/13) H/O colonoscopy (10/17/17) Dr Roberts History of esophagogastroduodenoscopy (EGD) (10/17/17) Dr Roberts Infected hardware in right leg Status post removal of hardware on 01/11/2018 Replacement of total knee joint (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 Father Diabetes Heart disease Social History Smoking/Tobacco Use Status: Never Smoking risk assessment performed?: Yes Alcohol Intake: never Drug use: Never current occupation: On Disability Do you feel safe in your relationship?: Yes Female Reproductive History Menstrual control method: none History History 2 Para 1 Hx # Term Pregnancies 1 Multiple births 0 Hx # Pregnancies 0 Ectopic pregnancies 0 AB induced 0 Hx Number of Living Children 1 AB spontaneous 0 Past Pregnancies Del. Date GA/Weeks # Outcome Route Wgt Sex Labor Lgth Anesthesia Location Prov Complic 10/29/07 40 No Successful vaginal Male 30 regional [facility] Delivery Date: 10/29/07 PROM then induction and epidural Ann Chambers Meds Allergies and Home Medications Allergies Allergy/AdvReac Type Severity Reaction Status Date / Time ibuprofen Allergy Severe Anaphylaxsi Verified 10/20/20 15:15 s salicylates Allergy Severe Anaphylaxsi Verified 10/20/20 15:15 s bee Allergy Severe Anaphylaxsi Uncoded 10/20/20 15:15 s Home Medications Medication Instructions Recorded Confirmed Type albuterol sulfate [ProAir HFA] 2 puff INHALATION Q4H PRN inhaler 09/25/17 10/27/20 History ferrous sulfate 324 mg PO DAILY #30 tab 09/25/17 10/27/20 Rx Flovent HFA 1 puff INHALATION DAILY PRN 01/03/18 10/27/20 History acetaminophen 1,000 mg PO Q8H PRN #90 cap 01/11/18 10/27/20 Rx diphenhydramine HCl [Benadryl] 25 mg PO Q6H PRN #14 cap 02/15/18 10/27/20 Rx gabapentin 300 mg capsule 300 mg PO QHS 06/11/20 10/27/20 History duloxetine 60 mg capsule,delayed 60 mg PO BID #60 cap 06/16/20 10/27/20 Rx release docusate sodium 50 mg capsule 50 mg PO BID #60 cap 07/22/20 10/27/20 Rx ondansetron HCl 4 mg tablet 4 mg PO Q8H PRN #30 tab 07/22/20 10/27/20 Rx aripiprazole 5 mg tablet 5 mg PO DAILY 09/04/20 10/27/20 History vitamin with calcium 1 tab PO DAILY #90 tab 09/08/20 10/27/20 Rx no.72-iron 27 mg-folic acid 1 mg tablet buspirone 5 mg tablet 5 mg PO TID 10/20/20 10/27/20 History Exam Constitutional Constitutional: severe distress Detailed Labor and Delivery Exam Dilation: 10 station: +2 Mcclendon Score: Cervical Points Exam 0 1 2 3 Dilation Closed 1-2cm 3-4 cm 5-6cm Effacement 0-30% 40-50% 60-70% 80% Consistency Firm Medium Soft Station -3 -2 -1,0 +1,+2 Position Posterior Mid Anterior Amniotic Membrane Status: Ruptured Rupture Method: Spontaneous Amniotic Fluid: Clear Pooling: Positive Monitor Mode: External Contraction Frequency(min): every 2 minutes Contraction Duration(sec): 60 Contraction Intensity: Strong Fetus A Heart Rate Baseline: 120 Monitor Accelerations: 15 X 15 Monitor Decelerations: Variable Variability: Moderate (6-25 BPM) Presentation: Vertex Categories: Category II Date of Membrane Rupture: 10/27/20 Time of Membrane Rupture: 06:45 Abdominal Exam Abdominal Exam: Normal Exam Exam: Normal Extremities Exam Extremities Exam: Abnormal (1+ pitting edema) Back/Spine/Pelvis Exam Pelvis Adequate: Yes Skin Exam Skin Exam: Normal Results Results Group Beta Strep: Not Done Abnormal Lab Findings: Abnormal Labs 10/27/20 10/27/20 10/27/20 06:15 08:20 08:20 WBC 16.61 H Hgb 9.8 L Hct 32.1 L MCV 78.3 L MCH 23.9 L MCHC 30.5 L RDW 20.2 H Absolute Neutrophils 13.79 H Carbon Dioxide 20.6 L Anion Gap 12.4 H Creatinine 1.1 H Uric Acid 6.4 H Alkaline Phosphatase 131 H Total Protein 6.0 L Albumin 1.9 L Urine Protein Trace H Urine Blood Large H Ur Leukocyte Esterase Small H Urine RBC 10-20 H Urine WBC 10-20 H Risk Assessment Risk for Shoulder Dystocia Historical/Initial OB: POSITIVE FOR: Pre- BMI>30; NEGATIVE FOR: Pelvic Abnormality, Previous Shoulder Dystocia or Previous Macrosomia 40 Weeks: NEGATIVE FOR: EFW> 4500 gms, Maternal Weight Gain >40lb or Post Dates Increased Risk?: No Risk for Pre-Eclampsia Date Initiated/Initials: low dose ASA Is indicated but pt is allergic to aspirin (anaphylaxis). JK Yes, if one or more: NEGATIVE FOR: Hx Pre-E/Gest HTN, Chronic HTN, Multiple Gestation, Pre-gestational DM, Renal Disease, Systemic Lupus or APA Syndrome Yes, if 2 or more: POSITIVE FOR: Age>= 35 yrs, >10yr btwn pregnancies and BMI>30; NEGATIVE FOR: Nulliparity, ethinicty, Mother/Sister w/ Pre-E or Previous IUGR Risk for Post- Hemorrhage Initial: NEGATIVE FOR: Multiple Gestation, Previous PPH, Known Clotting Deficiency, Grand Multiparity or Anticoagulation At Risk?: No Risks Reviewed Risks Reviewed Upon Admission: Yes
--- NOTE | 2020-10-27 09:39 | W.OBDELIVERY ---
Date of service: 10/27/20 Time of Service: 09:39 OB Labor/ Delivery Information Baby A Delivery Delivery Method: Spontaneaous Presentation: Vertex Cephalic Position: Vertex Vertex Position: Left Occipital Anterior Cord Description-Baby A: 3 Vessels Amniotic Fluid: Clear Estimated Blood Loss: 500 Delivery Outcome: Liveborn Infant Transferred: Remains with Mother Note: FHTs 120s with accellerations to 180s. Intermittent monitor tracing due to maternal habitus during first stage of labor. scalp electrode placed at full dilation and FHR 170 with variable decellerations with pushing. Alisia began pushing well. Rapid spontaneous delivery of male infant delivered in KADEN position. Baby was placed on mother's abdomen and dried and stimulated. Spontaneous cry. Cord was clamped and cut and the baby was transferred to the warmer for assessment by Dr. Sharp. The placenta delivered spontaneously and appears to by intact with a three vessel cord. There was a large adherent clot attached to the placenta. Cord section for blood gasses was obtained. Pitocin 30 Units. IV was administered after delivery of the placenta. The perineum was inspected and there was a first degree laceration which was repaired.. The baby will be bottlefed. The placenta will be sent to pathology for examination. Preeclampsia labs drawn due to edema and elevated B.P. on admission. After delivery, Mother and baby and father of the baby were stable and bonding well in the delivery room and there were no complications. Providers Doctor: Jasmin Cornelius Director Of Culture: Ann Chambers Senior Service Aide: Natalia Sharp Nurse: Elvia Smith Nurse: Poncho Weathers Other: TARUN Ortega, TARUN Chiang Labor/Delivery Information Number of Babies in Womb: 1 Steroids Given: None Reason Steroids Not Administered: Imminent Delivery Group Beta Strep: Not Done Antibiotics Administered: No Maternal Complications: Precipitous Labor(<3hrs) Shoulder Dystocia: No Stages of Labor Onset of Labor Date: 10/27/20 Onset of Labor Time: 05:30 Complete Dilatation Date: 10/27/20 Complete Dilatation Time: 07:06 Labor - Stage 1 Duration: 0 minutes ROM Baby A: 10/27/20 ROM Baby A: 06:45 ROM Total Time- Baby A: [id number] Delivery Date-Baby A: 10/27/20 Infant Delivery Time-Baby A: 07:22 Labor Stage 2 Duration: 16 minutes Placenta Delivery Date-Baby A: 10/27/20 Placenta Delivery Time-Baby A: 07:27 Labor-Stage 3 Duration: 5 minutes Total Length of Labor-Baby A: 1 hours and 52 minutes Placenta Status: Delivered Baby A Infant Gender: Male Gestational Status: Late (34-36.6 wks) Gestational Age in Weeks/Days: 34 Weeks and 6 Days Interventions Repair of Laceration Type: Perineal , Laceration Extension: First Degree . Sponge Count Correct: No Sponges Placed in Vagina , Sharp Count Correct: Yes . Laceration Repair Note: repair with 3-0 vicryl suture under local anesthetic.
[2020-10-27] MEDS: busPIRone 5 MG TAB PO (10:40)
[2020-10-27] MEDS: ARIPiprazole 5 MG TAB PO (10:40)
[2020-10-27] MEDS: DULoxetine 30 MG CAP 60 MG PO ×2 (10:40→20:09)
--- NOTE | 2020-10-27 14:37 | NUR.NOTE ---
Per CNM pt provided incorrect dose for home medications. Med rec confirmed verbally by pt x2, CNM working to confirm dosage directly from prescribing providers. Plan to keep dosing for HS medications as pt reports unless otherwise notified by prescribing provider. Nursing Note:
[2020-10-27] MEDS: busPIRone 15 MG TAB PO ×2 (15:18→20:09)
[2020-10-27] MEDS: traZODone 100 MG TAB PO (23:00)
[2020-10-28] MEDS: Acetaminophen 325 MG TAB 650 MG PO ×3 (06:50→19:14)
[2020-10-28 07:25] LABS: HCT 28.2 % (36.0-46.0); MCH 24.4 pg (27.0-33.0); MCHC 31.9 % (32.0-36.0); MCV 76.4 fL (80-95); MPV 10.5 fL (8.0-11.0); Platelet Count 329 10^3/uL (130-400); RBC 3.69 10^6/uL (3.93-5.22); RDW 20.9 % (11.7-14.6); RDW-SD 48.5 fL
[2020-10-28 09:00] VITALS: BP 125/85; PULSE 77; RESP 18; TEMP 36.6; O2SAT 97
[2020-10-28] MEDS: busPIRone 15 MG TAB PO ×3 (09:02→22:26)
[2020-10-28] MEDS: DULoxetine 30 MG CAP 60 MG PO ×2 (09:02→22:26)
[2020-10-28] MEDS: ARIPiprazole 2 MG TAB PO (09:02)
--- NOTE | 2020-10-28 10:58 | W.PM.OBPNV1 ---
Date of service: 10/28/20 Time of Service: 10:58 Assessment and Plan Assessment and plan (1) Follow-up, , routine: Status: Acute Assessment and plan: A: PPD#1, s/p @ 35 wks anemia, asymptomatic Pt satisfied with experience P: Plans to use condoms until has vasectomy Bottlefeeding without trouble Will resume PNV and iron supplements after first BM Expect discharge tomorrow Plan f/up at 2 & 6 wks with coloring room man (2) anemia: Status: Acute Subjective Subjective Patient comments: No complaints, Pain well controlled, Tolerating diet and Flatus present [place] baby status: Doing well, Bottle feeding well, Rooming in and Strong Bonding Observed feeding status: Exclusively formula feeding Exam Physical Exam Vital signs: Temp Pulse Resp BP Pulse Ox 98 F 77 18 125/85 97 10/28/20 09:00 10/28/20 09:00 10/28/20 09:00 10/28/20 09:00 10/28/20 09:00 Vital Signs Reviewed: Yes Constitutional Constitutional: no acute distress and obese HEENT Exam HEENT Exam: Normal Neck Exam Neck Exam: Normal Breast Exam Bilateral: Breast Exam: Normal and Soft Nipple Exam: Normal and Uninjured Respiratory Exam Respiratory Exam: Normal Cardiovascular Exam Cardiovascular Exam: Normal Abdominal Exam Abdomen: Other (soft, nontender) Fundal Exam Fundus: Below Umbilicus and Firm Rectal Exam Rectal Exam: Normal Exam Perineum: Repair Intact Extremities Exam Extremity Exam: Normal Back/Spine/Pelvis Exam Back Exam: Normal Skin Exam Skin Exam: Normal Neurological Exam Neurological Exam: Normal Psychiatric Exam Psychiatric Exam: Normal Results Hemoglobin/Hematocrit: Hgb 9.0 g/dL (11.2-15.7) L 10/28/20 07:10 Hct 28.2 % (36.0-46.0) L 10/28/20 07:10
[2020-10-28 13:00] VITALS: BP 134/85; PULSE 75; RESP 18; TEMP 36.4; O2SAT 97
[2020-10-28 16:00] VITALS: BP 124/85; PULSE 77; RESP 18; TEMP 36.5; O2SAT 95
[2020-10-28 22:20] VITALS: BP 119/83; PULSE 77; RESP 16; TEMP 36.5; O2SAT 99
[2020-10-28] MEDS: traZODone 100 MG TAB PO (22:26)
[2020-10-28] MEDS: Docusate Sodium 100 MG CAP PO (22:26)
[2020-10-28] MEDS: Gabapentin 300 MG CAP PO (22:26)
[2020-10-29 07:30] VITALS: BP 120/83; PULSE 79; RESP 16; TEMP 36.6; O2SAT 96
[2020-10-29] MEDS: ARIPiprazole 2 MG TAB PO (07:32)
[2020-10-29] MEDS: busPIRone 15 MG TAB PO (07:32)
[2020-10-29] MEDS: DULoxetine 30 MG CAP 60 MG PO (07:33)
[2020-10-29] MEDS: Acetaminophen 325 MG TAB 650 MG PO ×2 (07:34→12:07)
--- NOTE | 2020-10-29 08:31 | W.PM.OBPNV1 ---
Date of service: 10/29/20 Time of Service: 08:32 Assessment and Plan Assessment and plan (1) anemia: Status: Acute Assessment and plan: will have patient do ferrous sulfate for 2-6 weeks PP and reassess. Nasim (2) Follow-up, , routine: Status: Acute Assessment and plan: will likely need to be discharged today but will remain as a boarder. Plans condoms for contraception, reports knowledge of proper use, plans vasectomy Will return to office in 2 weeks PP and then 6 weeks PP. NASIM Subjective Subjective Interval history: feeling well. denies CLARKE, visual disturbance or epigastric pain. Is able to be out of bed without difficulty. Reports minimal cramping pain and minimal lochia. Patient comments: Pain well controlled, Tolerating diet and Flatus present Ribera baby status: Bottle feeding well, Rooming in and Strong Bonding Observed Ribera feeding status: Exclusively formula feeding Exam Physical Exam Vital signs: Temp Pulse Resp BP Pulse Ox 97.9 F 79 16 120/83 96 10/29/20 07:30 10/29/20 07:30 10/29/20 07:30 10/29/20 07:30 10/29/20 07:30 Vital Signs Reviewed: Yes Constitutional Constitutional: no acute distress and morbidly obese HEENT Exam HEENT Exam: Normal (wears glasses) Neck Exam Neck Exam: Not Done Breast Exam Bilateral: Breast Exam: Normal Nipple Exam: Normal Comments: no engorgement noted Respiratory Exam Respiratory Exam: Normal Cardiovascular Exam Cardiovascular Exam: Normal Fundal Exam Fundus: Below Umbilicus and Firm Rectal Exam Rectal Exam: Not Done Extremities Exam Extremity Exam: Normal and Full ROM Back/Spine/Pelvis Exam Back Exam: Not Done Skin Exam Skin Exam: Normal Neurological Exam Neurological Exam: Normal Psychiatric Exam Psychiatric Exam: Normal Results Hemoglobin/Hematocrit: Hgb 9.0 g/dL (11.2-15.7) L 10/28/20 07:10 Hct 28.2 % (36.0-46.0) L 10/28/20 07:10 Abnormal Lab Findings: Abnormal Labs 10/27/20 10/27/20 10/27/20 06:15 08:20 08:20 WBC 16.61 H RBC Hgb 9.8 L Hct 32.1 L MCV 78.3 L MCH 23.9 L MCHC 30.5 L RDW 20.2 H Absolute Neutrophils 13.79 H Carbon Dioxide 20.6 L Anion Gap 12.4 H Creatinine 1.1 H Uric Acid 6.4 H Alkaline Phosphatase 131 H Total Protein 6.0 L Albumin 1.9 L Urine Protein Trace H Urine Blood Large H Ur Leukocyte Esterase Small H Urine RBC 10-20 H Urine WBC 10-20 H 10/28/20 07:10 WBC 14.60 H RBC 3.69 L Hgb 9.0 L Hct 28.2 L MCV 76.4 L MCH 24.4 L MCHC 31.9 L RDW 20.9 H Absolute Neutrophils Carbon Dioxide Anion Gap Creatinine Uric Acid Alkaline Phosphatase Total Protein Albumin Urine Protein Urine Blood Ur Leukocyte Esterase Urine RBC Urine WBC
--- NOTE | 2020-10-29 08:44 | DSE_ITS ---
Date of service: 10/29/20 Time of Service: 08:44 DS: Diagnosis Discharge Diagnosis (1) anemia: Status: Acute Asessment and Plan: Patient has ferrous sulfate and will take it twice daily and we will repeat her hgb in office. Able to do her own ADL's. (2) Follow-up, , routine: Status: Acute Asessment and Plan: stable PP patient with anemia plans has scheduled appointment for vasectomy and they plan abstinence as well as condoms as needed between now and his negative sperm counts. we have reviewed PP warning signs as well as pre-eclampsia warning signs, all labs are negative and BP is WNL at this time. RTO 2 and 6 weeks PP. Discharge Plan Disposition Patient Disposition: HOME Condition: Good Discharge Details Reason For Visit: Labor Admit Date/Time: 10/27/20 06:43 Admit Provider: Ann Chambers Attending Provider: Ann Chambers Primary Care Provider: Ivette Ernst Hospital Course Hospital Course: precipitous vaginal delivery of live male at 34 weeks 6 days. suspected abruption due to large clot at time of placenta delivery, placenta was sent to pathology for evaluation. Patient is not planning another . Normal PP course complicated only by anemia which she will treat with ferrous sulfate. Home Meds and New Rx's Prescriptions: No Action ondansetron HCl 4 mg tablet 4 mg PO Q8H PRN (Reason: nausea and vomiting) Qty: 30 RF: 4 Colace Clear 50 mg capsule 50 mg PO BID Qty: 60 RF: 3 PrePlus 27 mg iron- 1 mg tablet 1 tab PO DAILY Qty: 90 RF: 2 albuterol sulfate [ProAir HFA] 8.5 GM HFA aerosol inhaler 2 puff Inhalation Q4H PRN RF: 0 ferrous sulfate 324 MG tablet,delayed release (DR/EC) 324 mg PO DAILY Qty: 30 RF: 4 gabapentin 300 mg capsule 300 mg PO QHS RF: 0 duloxetine [Cymbalta] 60 mg capsule,delayed release(DR/EC) 60 mg PO BID Qty: 60 RF: 0 Flovent HFA 110 mcg/actuation Hfa Aerosol Inhaler 1 puff INHALATION DAILY PRNRF: 0 acetaminophen 500 mg capsule 1,000 mg PO Q8H PRN (Reason: pain) Qty: 90 RF: 0 aripiprazole [Abilify] 2 mg Tablet 2 mg PO DAILY RF: 0 buspirone 15 mg Tablet 15 mg PO TID RF: 0 trazodone 100 mg Tablet 100 mg PO HS RF: 0 diphenhydramine HCl [Benadryl] 25 mg capsule 25 mg PO Q6H PRN (Reason: allergy symptoms) Qty: 14 RF: 0 Discharge Instructions Stand Alone Forms: BC Post Vaginal Deliver Activity:: Activity as Tolerated Equipment/Supplies:: No Equipment Needed Diet:: As Tolerated Discharge Orders Discharge Orders: Discharge Order (Routine); Ordered 10/29/20 Ordered By: Ann Amaya OB:DS Summary Summary Vaginal Delivery Method: Spontaneaous Laceration Description: Perineal Laceration Extension: First Degree Contraception Discussed Contraception Discussed: Yes, Gender-Baby A: Male weight: 6 lb 11.762 oz Status at Discharge Functional status at discharge: independent ambulation Overall status at discharge: patient is back to baseline Mental Status: mental status grossly normal Speech and Movement: speech and movement normal Mood: congruent mood Affect: normal affect Exam Physical Exam Vital signs: Temp Pulse Resp BP Pulse Ox 97.9 F 79 16 120/83 96 10/29/20 07:30 10/29/20 07:30 10/29/20 07:30 10/29/20 07:30 10/29/20 07:30 Vital Signs Reviewed: Yes Constitutional Constitutional: no acute distress and morbidly obese HEENT Exam HEENT Exam: Normal Neck Exam Neck Exam: Not Done Breast Exam Bilateral: Breast Exam: Normal Nipple Exam: Normal Comments: no engorgement noted KH Respiratory Exam Respiratory Exam: Normal Cardiovascular Exam Cardiovascular Exam: Normal Fundal Exam Fundus: Below Umbilicus and Firm Rectal Exam Rectal Exam: Not Done Exam Patient deferred: external exam Perineum: Normal Extremities Exam Extremity Exam: Normal and Full ROM Back/Spine/Pelvis Exam Back Exam: Not Done Skin Exam Skin Exam: Normal Neurological Exam Neurological Exam: Normal Psychiatric Exam Psychiatric Exam: Normal [facility] Medical History Anemia affecting in third trimester Asthma Depression Elderly multigravida in second trimester Fibromyalgia Gastritis Continue omeprazole, awaiting biopsy results GERD (gastroesophageal reflux disease) Hypokalemia, inadequate intake Left upper quadrant abdominal pain Low lying placenta nos or without hemorrhage, second trimester Nausea and vomiting in Nausea vomiting and diarrhea EGD showed gastritis awaiting pathology results, question dumping syndrome Obesity (BMI 30-39.9) Obesity affecting , antepartum PCOS (polycystic ovarian syndrome) Seizures Surgical History Cholecystectomy (~2002) Gastric Bypass (02/13/13) H/O colonoscopy (10/17/17) Dr Roberts History of esophagogastroduodenoscopy (EGD) (10/17/17) Dr Roberts Infected hardware in right leg Status post removal of hardware on 01/11/2018 Replacement of total knee joint (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 Father Diabetes Heart disease Social History Smoking/Tobacco Use Status: Never Smoking risk assessment performed?: Yes Alcohol Intake: never Drug use: Never current occupation: On Disability Do you feel safe in your relationship?: Yes Female Reproductive History Menstrual control method: none History History 2 Para 1 Hx # Term Pregnancies 1 Multiple births 0 Hx # Pregnancies 0 Ectopic pregnancies 0 AB induced 0 Hx Number of Living Children 1 AB spontaneous 0 Past Pregnancies Del. Date GA/Weeks # Outcome Route Wgt Sex Labor Lgth Anesthes ia Location Prov Complic 10/29/07 40 No Successful vaginal Male [facility] Delivery Date: 10/29/07 PROM then induction and epidural Ann Chambers DS: Data Vitals/I&O Vitals and I&O: Vital Signs Temperature 97.9 F 10/29/20 07:30 Pulse 79 10/29/20 07:30 Pulse Rhythm Regular 10/29/20 07:30 Respiratory Rate 16 10/29/20 07:30 Blood Pressure 120/83 10/29/20 07:30 Blood Pressure Mean 95 10/29/20 07:30 Pulse Oximetry 96 10/29/20 07:30 Pain Level 2 10/28/20 22:20 Intake & Output 10/28/20 10/28/20 10/29/20 11:59 23:59 11:59 Other: Urine Color Yellow Data Completed and Pending Labs on day of discharge: Labs from last 24 hours 10/27/20 10/27/20 Unknown Unknown Cord ABG pH Cancelled Cord ABG pCO2 Cancelled Cord ABG pO2 Cancelled Cord ABG Base Excess Cancelled Cord VBG pH Cancelled Cord VBG pCO2 Cancelled Cord VBG pO2 Cancelled Cord VBG Base Excess Cancelled
[2020-10-30 13:25] LABS: HSV Type 1 Ab, IgG Negative (Negative); HSV Type 2 Ab, IgG Negative (Negative)
== END 2020-10-29 13:30 | disposition home or self-care (01) | DRG 805 ==
PROVIDERS: Admitting Provider Advanced Practice Midwife; PCP Nurse Practitioner Family; Visit Provider Advanced Practice Midwife
DX: O60.14X0 Preterm labor third trimester with preterm delivery third trimester, not applicable or unspecified (principal); O45.93 Premature separation of placenta, unspecified, third trimester; Z37.0 Single live birth; O99.354 Diseases of the nervous system complicating childbirth; Z3A.34 34 weeks gestation of pregnancy; O99.284 Endocrine, nutritional and metabolic diseases complicating childbirth; E28.2 Polycystic ovarian syndrome; O99.02 Anemia complicating childbirth; O99.52 Diseases of the respiratory system complicating childbirth; D64.9 Anemia, unspecified; O99.214 Obesity complicating childbirth; E66.9 Obesity, unspecified; O36.63X0 Maternal care for excessive fetal growth, third trimester, not applicable or unspecified; O99.344 Other mental disorders complicating childbirth; F43.10 Post-traumatic stress disorder, unspecified; F32.9 Major depressive disorder, single episode, unspecified; M79.7 Fibromyalgia; G40.909 Epilepsy, unspecified, not intractable, without status epilepticus; J45.909 Unspecified asthma, uncomplicated; K21.9 Gastro-esophageal reflux disease without esophagitis; K29.70 Gastritis, unspecified, without bleeding; O99.62 Diseases of the digestive system complicating childbirth; O62.3 Precipitate labor; O70.0 First degree perineal laceration during delivery
CPT/HCPCS: 36415; 80053; 85027; 86850; 86900; 86901; 81003; 81015; 84550; 85025; 86695; 86696; 88307

== ENCOUNTER 2021-08-27 16:36 | Outpatient (REF) | payer MEDICARE, MEDICAID, SELFPAY | END 2021-08-27 16:37 | disposition home or self-care (01) | LOC: LBN 16:36 | PROVIDERS: PCP Nurse Practitioner Family; Visit Provider Advanced Practice Midwife | DX: R10.2 Pelvic and perineal pain (principal) | CPT/HCPCS: 87480; 87510; 87660 ==

== ENCOUNTER → 2021-11-23 01:15 | Outpatient (CLI) | payer MEDICARE, MEDICAID, SELFPAY ==
--- NOTE | 2021-11-23 14:30 | DI.RAD_ITS ---
Exam(s) XR FOOT LT COMPLETE EXAM: XR FOOT LT COMPLETE CLINICAL HISTORY: FOOT PAIN, M79.673. TECHNIQUE: 2D digital imaging was performed of the left foot. Three images were obtained. AP, obli que and lateral views were obtained. COMPARISON: No exams were available for comparison FINDINGS: BONES: No acute fracture is present. No bony destructive lesion is seen. There is a small plantar cipriano caneal spur. JOINTS: No dislocation present. SOFT TISSUE: Normal. IMPRESSION: No acute abnormality. DATA REPOSITORY: RADIATION DOSE DELIVERED:
== END ==
PROVIDERS: PCP Nurse Practitioner Family; Visit Provider Nurse Practitioner Family
DX: M79.672 Pain in left foot (principal)
CPT/HCPCS: 73630

== ENCOUNTER 2021-11-23 19:37 | Outpatient (REF) | payer MEDICARE, MEDICAID, SELFPAY ==
[2021-11-23 20:35] LABS: Abs Immature Grans 0.01 10^3/uL (0.0-0.06); Absolute Basophil Count 0.04 10^3/uL (0.0-0.2); Absolute Eosinophil Count 0.06 10^3/uL (0.0-0.7); Absolute Lymphocyte Count 1.93 10^3/uL (1.2-3.4); Absolute Monocyte Count 0.49 10^3/uL (0.1-0.8); Absolute Neutrophil Count 4.64 10^3/uL (1.2-6.7); Basophils % 0.6; Eosinophils % 0.8; HCT 34.2 % (36.0-46.0); HGB 10.7 g/dL (11.2-15.7); Immature Grans % 0.1; Lymphocytes % 26.9; MCH 24.3 pg (27.0-33.0); MCHC 31.3 % (32.0-36.0); MCV 78 fL (80-95); MPV 11.7 fL (8.0-11.0); Monocytes % 6.8; Neutrophils % 64.8; Platelet Count 316 10^3/uL (130-400); RDW 16.7 % (11.7-14.6); RDW-SD 47.2 fL; WBC 7.17 10^3/uL (4.4-10.8)
[2021-11-23 20:52] LABS: ALT 16 U/L (14-59); AST 15 U/L (15-37); Albumin 3.3 g/dL (3.4-5.0); Alkaline Phosphatase 86 U/L (46-116); Anion Gap 10.4 mmol/L (3-11); BUN 12 mg/dL (7-18); Bilirubin, Total 0.3 mg/dL (0.2-1.0); CO2 25.6 mmol/L (21.0-32.0); Calcium 8.5 mg/dL (8.5-10.1); Chloride 104 mmol/L (98-107); Estimated GFR 73.95 (mL/min/1.73m2); Glucose 77 mg/dL (74-106); Potassium 3.8 mmol/L (3.5-5.1); Sodium 140 mmol/L (136-145); Total Protein 7.3 g/dL (6.4-8.2)
== END 2021-11-23 19:38 | disposition home or self-care (01) ==
LOC: NCHCN 19:37
PROVIDERS: Visit Provider Nurse Practitioner Family
DX: I10 Essential (primary) hypertension (principal); Z86.2 Personal history of diseases of the blood and blood-forming organs and certain disorders involving the immune mechanism
CPT/HCPCS: 80053; 85025

== ENCOUNTER 2021-12-06 14:09 | Outpatient (REF) | payer MEDICARE, MEDICAID, SELFPAY ==
[2021-12-07 14:23] LABS: Chlamydia Result Negative (Negative); GC Result Negative (Negative)
== END 2021-12-06 14:10 | disposition home or self-care (01) ==
LOC: LBN 14:09
PROVIDERS: PCP Nurse Practitioner Family; Visit Provider Nurse Practitioner Women's Health
DX: Z11.3 Encounter for screening for infections with a predominantly sexual mode of transmission (principal)
CPT/HCPCS: 87491; 87591

== ENCOUNTER → 2022-01-17 02:00 | Outpatient (CLI) | payer MEDICARE, MEDICAID, SELFPAY ==
--- NOTE | 2022-01-17 | DI.MRI_ITS ---
Exam(s) MR LUMBAR SPINE WO EXAM: MR LUMBAR SPINE WO CLINICAL HISTORY: WEAKNESS DULCE LEGS, R53.1, RT SCIATICA, M54.31, LUMBAR BACK PAIN, M54.50 TECHNIQUE: Multiplanar multisequence MRI of the Lumbar Spine was performed. CONTRAST MATERIAL: Noncontrast COMPARISON: CR XR FOOT LT COMPLETE from 11/23/2021 FINDINGS: Bones: The last intervertebral disc space is designated the L5/S1 level for the numbering purpose of this examination. The vertebral body heights are well maintained. Alignment is satisfactory. The sig nal characteristics are unremarkable. Cord: The conus tip ends at the T12 level. It is of normal siz e and signal intensity. T12-L1: No disc herniations or bulges are present. L1-2: No disc herniations or bulges are present. L2-3: No disc herniations or bulges are present. L3-4: No disc herniations or bulges are present. L4-5: No disc herniations or bulges are present. There are minimal facet joint degenerative changes. L5-S1: No disc herniations or bulges are present. Soft tissues: The visualized SI joints and sacrum are well maintained. The paraspinal soft tissues ar e unremarkable. IMPRESSION: No evidence of disc herniation. No evidence of significant spinal stenosis or neuroforaminal narrowi ng. DATA REPOSITORY:
== END ==
PROVIDERS: PCP Nurse Practitioner Family; Visit Provider Nurse Practitioner Family
DX: M54.31 Sciatica, right side (principal); M54.59 Other low back pain; M47.816 Spondylosis without myelopathy or radiculopathy, lumbar region
CPT/HCPCS: 72148

== ENCOUNTER 2022-03-04 00:26 | Outpatient (CLI) | payer MEDICARE, MEDICAID, SELFPAY ==
--- NOTE | 2022-03-04 07:31 | DI.US_ITS ---
Exam(s) US PELVIS TRANSVAGINAL EXAM: US PELVIS TRANSVAGINAL CLINICAL HISTORY: IUD surveillence,abnl uterine bleeding,n92.1,z97.5. TECHNIQUE: Transabdominal and transvaginal pelvic ultrasound was performed using standard protocol. US RIGHT EXTREMITY ULTRASOUND from 08/22/2017 US US OB SHILO WEIGHT from 10/23/2020 FINDINGS: KIDNEYS: There is a 0.8 cm echogenic round nodule in the midpole of the left kidney. This correspond s to a fat density lesion in the kidney on the CT scan from 01/11/2018. This is most suggestive of a angiomyolipoma. UTERUS: Position: Anteverted. Size: 9.4 long by 4.9 AP by 5.9 transverse cm Endometrium: 0.5 cm. Normal for patient's menstrual status. The IUD appears in good position. Myometrium: Unremarkable. Cervix: Unremarkable. OVARIES: Right: 3.6 x 2.8 x 3.6 cm Cyst or mass: No suspicious cystic or solid masses. There is a 2.9 x 2.6 x 2.8 cm dominant right ova efe follicle. Left: 3.1 x 2.6 x 2.4 cm Cyst or mass: No suspicious cystic or solid masses. DOPPLER: Color: Symmetric and uniform flow to both ovaries. CUL-DE-SAC: Free fluid: None. Other: None. IMPRESSION: 1. The IUD appears to be in good position. 2. Unremarkable uterus. 3. Unremarkable bilateral ovaries. DATA REPOSITORY:
== END 2022-03-04 00:46 ==
LOC: DI 00:26
PROVIDERS: PCP Nurse Practitioner Family; Visit Provider Nurse Practitioner Women's Health
DX: N92.1 Excessive and frequent menstruation with irregular cycle (principal); Z97.5 Presence of (intrauterine) contraceptive device
CPT/HCPCS: 76830; 76856

== ENCOUNTER 2022-03-24 00:52 | Outpatient (CLI) | payer MEDICARE, MEDICAID, SELFPAY ==
--- NOTE | 2022-03-24 07:30 | DI.RAD_ITS ---
Exam(s) XR FOOT LT COMPLETE EXAM: XR FOOT LT COMPLETE CLINICAL HISTORY: L insertional PB tendinitis,? stress fx, M79.672,m76.70. TECHNIQUE: 2D digital imaging was performed. COMPARISON: CR XR FOOT LT COMPLETE from 11/23/2021 FINDINGS: 3 views No evidence of fracture nor diastasis of the Lisfranc joint. Bone density normal. No osseous lesion s. No erosions evident. No pes planus. Small inferior calcaneal spur is noted. IMPRESSION: No significant osseous findings. DATA REPOSITORY: RADIATION DOSE DELIVERED:
== END 2022-03-24 01:12 ==
PROVIDERS: PCP Nurse Practitioner Family; Visit Provider Podiatrist Foot & Ankle Surgery
DX: M79.672 Pain in left foot; M77.32 Calcaneal spur, left foot
CPT/HCPCS: 73630